=== PATIENT | female | born 1930 | race Caucasian/White ===

== ENCOUNTER 2017-07-24 08:10 | Observation (INO) | payer BC, OTHER ==
[2017-07-24 08:19] VITALS: BMI 17.9
--- NOTE | 2017-07-24 08:32 | DR.GENAD ---
HPI - PCP Primary Care Physician: ADAM DUNCAN - Complaint/Symptoms Chief Complaint Doctors Comments: Patient presents to the ED this morning with complaint of generalized weakness. She had nause,vomitng and dirrhea the previous few days and was seen by her primary provider yesterdan and was given Lomotil and zofran. Family members who live next door states that patient is very weak and needs assistance in getting up and down. She denies fever no influenza shot. Chief Complaint:: PT. C/O POSSIBLE DEHYDRATION AND WEAKNESS. PT. HAS HAD N/V/D WITH AN ONSET OF YESTERDAY. PT. SEEN PCP [facility] & WAS PRESCRIBED LOMOTIL AND ZOFRAN. FAMILY MEMBER STATES PT. WAS WORKING OUT IN THE YARD ON SUNDAY AND STARTED NOT FEELING WELL ON SUNDAY OF LAST WEEK. - Source History Provided: Patient, Family Member - Mode of Arrival Mode of Arrival: Wheelchair - Timing Onset of Chief Complaint: 07/20/17 PMH - PMH Past Medical History: Yes Past Medical History: Anxiety, GERD, Hypothyroidism Past Surgical History: Yes Surgical History: Hysterectomy, Ortho Surgery - Family History History of Family Medical Conditions: Yes Family Medical History: Diabetes Mellitus, Cancer, [place] - Social History Does patient currently use any type of tobacco product: No Have you used tobacco products in the last 12 months: No Type of Tobacco Use: None Does any household member use tobacco: No Alcohol Use: None Do you use any recreational Drugs:: No Lives With: Alone Lives Where: Home - infectious screening In the last 2 months have you had wt loss of >10#?: NO Have you had fever, night sweats or hemotysis?: No Have you traveled outside the country in the last 6 months?: No Isolation: Standard ROS - Review of Systems Eyes: No Symptoms Reported ENTM: No Symptoms Reported Respiratoy: No Symptoms Reported Cardiovascular: No Symptoms Reported Gastrointestinal/Abdominal: No Symptoms Reported Genitourinary: No Symptoms Reported Neurological: No Symptoms Reported Musculoskeletal: No Symptoms Reported Integumentary: No Symptoms Reported Hematologic/Lymphatic: No Symptoms Reported Endocrine: No Symptoms Reported Psychiatric: No Symptoms Reported All Other Systems: Reviewed and Negative PE - Vital Signs Vitals: Temperature 99.6 F Pulse Rate [Left Brachial] 60 Pulse Rate 65 Respiratory Rate 16 Blood Pressure [Left Arm] 148/65 Blood Pressure [Right Arm] 171/77 Blood Pressure 170/72 O2 Sat by Pulse Oximetry 96 - General General Appearance: Alert, In No Apparent Distress - Head Head Exam: Normal Inspection, Atraumatic - Eyes Eye exam: Normal Appearance, PERRL, EOMI - ENT ENT Exam: Normal Exam, Normal Oropharynx External Ear Exam: Normal External Inspection TM/Canal Exam: Bilateral Normal (PE Tube right ear) Nose Exam: Normal Nose Exam, Sinus Tenderness Mouth Exam: Normal Inspection Throat Exam: Normal Inspection, Other (dry mucous membrane) - Neck Neck Exam: Normal Inspection, Full ROM - Chest Chest Inspection: Normal Inspection - Respiratory Respiratory Exam: Normal Lung Sounds Bilat Respiratory Exam: Bilateral Clear to Auscultation - Cardiovascular Cardiovascular Exam: Regular Rate, Normal Rhythm - Abdominal Exam Abdominal Exam: Normal Inspection, Normal Bowel Sounds Abdominal Tenderness: negative: RUQ, RLQ, LUQ, LLQ, Epigastrium, Suprapubic, Diffuse, Mild, Moderate, Severe, Other - Extremities Extremities Exam: Normal Inspection, Full ROM - Back Back Exam: Normal Inspection, Full ROM - Neurologic Neurological Exam: Alert, Oriented X3, CN II-XII Intact - Psychiatric Psychiatric Exam: Normal Affect - Skin Skin Exam: Warm, Dry, Intact Course - Reevaluation 1st: Unchanged - Consultation Called: 10:00 (Dr Hendricks agreed to admit for further management) ROR - Labs Reviewed Result Diagrams: 07/24/17 08:21 07/24/17 08:21 Laboratory: WBC 10.0 X10^3/uL (3.6-10.0) 07/24/17 08:21 RBC 3.92 X10^6/uL (3.5-5.4) 07/24/17 08:21 Hgb 12.6 g/dL (12.0-16.0) 07/24/17 08:21 Hct 37.2 % (36.0-47.0) 07/24/17 08:21 MCV 94.8 fL (80.0-100.0) 07/24/17 08:21 MCH 32.2 pg (27.0-34.0) 07/24/17 08:21 MCHC 33.9 g/dL (33.0-35.0) 07/24/17 08:21 RDW 13.2 % (11.6-16.5) 07/24/17 08:21 Plt Count 131 X10^3/uL (150.0-450.0) L 07/24/17 08:21 MPV 9.2 fL (7.4-11.0) 07/24/17 08: Neut % 86.4 % (42.0-75.0) H 07/24/17 08:21 Lymph % 8.3 % (21.0-51.0) L 07/24/17 08:21 [place] % 5.1 % (0.0-13.0) 07/24/17 08:21 Eos % 0.0 % (0.9-2.9) L 07/24/17 08:21 Baso % 0.2 % (0.2-1.0) 07/24/17 08: Neut # 8.7 x10^3/uL (2.2-4.8) H 07/24/17 08:21 Lymph # 0.8 X10^3/uL (1.3-2.9) L 07/24/17 08:21 [place] # 0.5 x10^3/uL (0.3-0.8) 07/24/17 08:21 Eos # 0.0 x10^3/uL (0.0-0.2) 07/24/17 08:21 Baso # 0.0 X10^3/uL (0.0-0.1) 07/24/17 08:21 Absolute Nucleated RBC 0.0 /100WBC 07/24/17 08:21 Sodium 130 mmol/L (136-145) L 07/24/17 08:21 Corrected Sodium 130 mmol/L (136-145) L 07/24/17 08:21 Potassium 3.6 mmol/L (3.5-5.1) 07/24/17 08:21 Chloride 95 mmol/L (98-107) L 07/24/17 08:21 Carbon Dioxide 25.9 mmol/L (21-32) 07/24/17 08:21 BUN 8 mg/dL (7-18) 07/24/17 08:21 Creatinine 0.75 mg/dL (0.55-1.02) 07/24/17 08:21 Est GFR (MDRD) Af Amer > 60 (>60) 07/24/17 08:21 Est GFR (MDRD) Non-Af > 60 (>60) 07/24/17 08:21 Glucose 111 mg/dL (65-99) H 07/24/17 08:21 Calcium 8.7 mg/dL (8.5-10.1) 07/24/17 08:21 Corrected Calcium 9.3 mg/dL (8.5-10.1) 07/24/17 08:21 Magnesium 1.6 mg/dL (1.7-2.9) L 07/24/17 08:21 Total Bilirubin 0.80 mg/dL (0.2-1.0) 07/24/17 08:21 AST 50 Units/L (15-37) H 07/24/17 08:21 ALT 49 Units/L (12-78) 07/24/17 08:21 Alkaline Phosphatase 97 Units/L (46-116) 07/24/17 08:21 Creatine Kinase 39 Units/L (26-192) 07/24/17 08:21 CK-MB (CK-2) < 1.0 ng/mL (0-4.0) 07/24/17 08:21 CK/CKMB % Calc 2.6 % (<4) 07/24/17 08:21 Troponin I 0.26 ng/mL (0-1.5) 07/24/17 08:21 C-Reactive Protein 120.00 mg/L (0-3.0) H 07/24/17 08:21 Total Protein 7.1 g/dL (6.4-8.2) 07/24/17 08:21 Albumin 3.2 g/dL (3.4-5.0) L 07/24/17 08:21 Globulin 3.9 g/dL (2.5-4.5) 07/24/17 08:21 Albumin/Globulin Ratio 0.8 Ratio (1.1-2.1) L 07/24/17 08:21 TSH 3rd Generation 0.662 uIU/mL (0.358-3.74) 07/24/17 08:21 Specimen Type Catherized urine 07/24/17 09:11 Urine Color Yellow (YELLOW) 07/24/17 09:11 Urine Appearance Slightly hazy (CLEAR) 07/24/17 09:11 Urine pH 7.0 (5.0 - 8.0) 07/24/17 09:11 Ur Specific [employer] 1.010 (1.000-1.030) 07/24/17 09:11 Urine Protein 1+ (NEGATIVE) 07/24/17 09:11 Urine Glucose (UA) Negative (NEGATIVE) 07/24/17 09:11 Urine Ketones Negative (NEGATIVE) 07/24/17 09:11 Urine Occult Blood 1+ (NEGATIVE) 07/24/17 09:11 Urine Nitrite Negative (NEGATIVE) 07/24/17 09:11 Urine Bilirubin Negative (NEGATIVE) 07/24/17 09:11 Urine Urobilinogen Normal (NORMAL) 07/24/17 09:11 Ur Leukocyte Esterase Negative (NEGATIVE) 07/24/17 09:11 Urine RBC 2-4 /HPF (NEGATIVE) 07/24/17 09:11 Urine WBC 5-8 /HPF (NEGATIVE) 07/24/17 09:11 Ur Squamous Epith Cells Rare /HPF (NEGATIVE) 07/24/17 09:11 Urine Bacteria Trace /HPF (NEGATIVE) 07/24/17 09:11 Urine Mucus Few /HPF (NEGATIVE) 07/24/17 09:11 Ur Culture Indicated? No/not indicated 07/24/17 09:11 Influenza Type A (PCR) Negative (NEGATIVE) 07/24/17 08:34 Influenza Type B (PCR) Negative (NEGATIVE) 07/24/17 08:34 - XRAY XRAY Interpreted by: Radiologist (Chest: Mild cardiomegaly without congestive heart failure, lungs clear.CT Brain: The ventricules and sulci are prominent without midline shift. There is no intracranial hemorrhage or mass or edema. There is mild to moderate diffuse periventricular white matter low attenuation. There is no subdural collection of fluid. The calvarium is intact and the paranasal sinuses are clear. Impressin: No acute intracranial disease) - Diagnosis Discharge Problem: Hyponatremia, Mild dehydration, Generalized weakness - Discharge Plan Condition: Stable - Follow ups/Referrals Follow ups/Referrals: NFD,None [Primary Care Provider] - 3 days - Instructions
[2017-07-24 08:49] LABS: BASOPHILS % (AUTO) 0.2 % (0.2-1.0); HEMATOCRIT 37.2 % (36.0-47.0); HEMOGLOBIN 12.6 g/dL (12.0-16.0); LYMPHOCYTES # (AUTO) 0.8 X10^3/uL (1.3-2.9); LYMPHOCYTES % (AUTO) 8.3 % (21.0-51.0); MEAN CORPUSCULAR HEMOGLOBIN 32.2 pg (27.0-34.0); MEAN CORPUSCULAR HGB CONC 33.9 g/dL (33.0-35.0); MEAN CORPUSCULAR VOLUME 94.8 fL (80.0-100.0); MEAN PLATELET VOLUME 9.2 fL (7.4-11.0); MONOCYTES # (AUTO) 0.5 x10^3/uL (0.3-0.8); MONOCYTES % (AUTO) 5.1 % (0.0-13.0); NEUTROPHILS # (AUTO) 8.7 x10^3/uL (2.2-4.8); NEUTROPHILS % (AUTO) 86.4 % (42.0-75.0); PLATELET COUNT 131 X10^3/uL (150.0-450.0); RED BLOOD COUNT 3.92 X10^6/uL (3.5-5.4); RED CELL DISTRIBUTION WIDTH 13.2 % (11.6-16.5)
--- NOTE | 2017-07-24 08:51 | RAD ---
HISTORY: Weakness, dehydration Study: Chest AP Comparison: 07/17/2016 Findings: The heart is enlarged. No congestive heart failure is noted. The aorta is calcified. The aleta are nor mal. The lung negro are clear. The bony thorax is unremarkable. IMPRESSION: Lungs clear Mild cardiomegaly without congestive heart failure Reported By:
[2017-07-24] MEDS ORDERED: NS 1000 ML 1,000 ML IV SCH (09:00)
[2017-07-24 09:03] LABS: BLOOD UREA NITROGEN 8 mg/dL (7-18); CALCIUM 8.7 mg/dL (8.5-10.1); CARBON DIOXIDE 25.9 mmol/L (21-32); CHLORIDE 95 mmol/L (98-107); COR NA(FOR HYPERGLY) 130 mmol/L (136-145); CREATININE 0.75 mg/dL (0.55-1.02); SODIUM 130 mmol/L (136-145); TROPONIN I 0.26 ng/mL (0-1.5); eGFR BLACK RACES > 60 (>60); eGFR NON BLACK RACES > 60 (>60)
[2017-07-24 09:08] LABS: ALANINE AMINOTRANSFERASE 49 Units/L (12-78); ALBUMIN 3.2 g/dL (3.4-5.0); ALKALINE PHOSPHATASE 97 Units/L (46-116); ASPARTATE AMINO TRANSFERASE 50 Units/L (15-37); CKMB % 2.6 % (<4); COR CA(FOR HYPOALB) 9.3 mg/dL (8.5-10.1); CREATINE KINASE 39 Units/L (26-192); CREATINE KINASE MB < 1.0 ng/mL (0-4.0); MAGNESIUM 1.6 mg/dL (1.7-2.9); TOTAL PROTEIN 7.1 g/dL (6.4-8.2); TSH (3RD GENERATION) 0.662 uIU/mL (0.358-3.74)
[2017-07-24 09:20] LABS: BILIRUBIN,URINE NEGATIVE (NEGATIVE); BLOOD/HEMOGLOBIN,URINE 1+ (NEGATIVE); GLUCOSE, URINE NEGATIVE (NEGATIVE); KETONES,URINE NEGATIVE (NEGATIVE); LEUKOCYTE ESTERASE ,URINE NEGATIVE (NEGATIVE); NITRITES,URINE NEGATIVE (NEGATIVE); PROTEIN,URINE 1+ (NEGATIVE); UROBILINOGEN,URINE NORMAL (NORMAL)
[2017-07-24 09:34] LABS: APPEARANCE,URINE SLIGHTLY HAZY (CLEAR); COLOR,URINE YELLOW (YELLOW)
[2017-07-24 09:35] LABS: BACTERIA,URINE TRACE /HPF (NEGATIVE); MUCUS,URINE FEW /HPF (NEGATIVE); SQUAMOUS EPITHELIAL CELL,UR RARE /HPF (NEGATIVE)
--- NOTE | 2017-07-24 09:56 | CT ---
History: Weakness and dehydration Study: CT head without contrast. Sagittal and coronal reformations were provided. Comparison: None Findings: The ventricles and sulci are prominent without midline shift. There is no intracranial hemo rrhage or mass or edema. There is [id number] diffuse periventricular white matter low attenuati on. There is no subdural collection of fluid. The calvarium is intact and the paranasal sinuses are c lear. Impression: No acute intracranial disease. Reported By:
[2017-07-24] MEDS ORDERED: ZOFRAN INJ 4 MG VIAL IVP PRN (10:52)
[2017-07-24] MEDS ORDERED: NAPROXEN SODIUM PO PRN (10:52)
[2017-07-24] MEDS ORDERED: TYLENOL 500 MG TAB EXTRA STRENGTH PO PRN (10:52)
[2017-07-24] MEDS: NS 1000 ML 1,000 ML with POTASSIUM CHLORIDE INJ 20 MEQ VIAL 20 MEQ IV SCH ×6 (13:08→20:05)
[2017-07-24] MEDS: LOVAZA PO SCH (13:42)
[2017-07-24] MEDS: ZESTRIL TAB 5 MG PO SCH (13:42)
[2017-07-24] MEDS: PREDNISONE TAB 5 MG PO SCH (13:42)
[2017-07-24] MEDS: VITAMIN C PO SCH (13:42)
[2017-07-24] MEDS: MAGNESIUM SULFATE 1 GM/100 mL PREMIX 1 GM/100 ML BAG IV PRN ×2 (13:42→14:56)
[2017-07-24] MEDS: LIPITOR TAB 10 MG PO SCH (13:42)
[2017-07-24] MEDS: SYNTHROID 100 mcg TAB PO SCH (13:42)
[2017-07-24] MEDS ORDERED: ASPIRIN EC 81 MG PO SCH (14:00)
[2017-07-24 14:50] LABS: CKMB % 2.1 % (<4); CREATINE KINASE 48 Units/L (26-192); CREATINE KINASE MB < 1.0 ng/mL (0-4.0); TROPONIN I 0.25 ng/mL (0-1.5)
[2017-07-24 15:51] LABS: BILIRUBIN,URINE NEGATIVE (NEGATIVE); BLOOD/HEMOGLOBIN,URINE 4+ (NEGATIVE); GLUCOSE, URINE NEGATIVE (NEGATIVE); KETONES,URINE NEGATIVE (NEGATIVE); LEUKOCYTE ESTERASE ,URINE NEGATIVE (NEGATIVE); NITRITES,URINE NEGATIVE (NEGATIVE); PROTEIN,URINE NEGATIVE (NEGATIVE); UROBILINOGEN,URINE NORMAL (NORMAL)
[2017-07-24 15:59] LABS: APPEARANCE,URINE CLEAR (CLEAR); BACTERIA,URINE TRACE /HPF (NEGATIVE); COLOR,URINE PALE YELLOW (YELLOW); SQUAMOUS EPITHELIAL CELL,UR RARE /HPF (NEGATIVE)
[2017-07-24] MEDS: ASPIRIN EC 81 MG PO SCH (19:59)
[2017-07-24] MEDS: RESTORIL CAP 30 MG PO PRN (20:05)
[2017-07-24 20:55] LABS: CKMB % 1.9 % (<4); CREATINE KINASE 52 Units/L (26-192); CREATINE KINASE MB < 1.0 ng/mL (0-4.0); TROPONIN I 0.15 ng/mL (0-1.5)
[2017-07-25 05:24] LABS: BASOPHILS % (AUTO) 0.3 % (0.2-1.0); EOSINOPHILS % (AUTO) 0.1 % (0.9-2.9); HEMATOCRIT 38.2 % (36.0-47.0); LYMPHOCYTES # (AUTO) 0.6 X10^3/uL (1.3-2.9); LYMPHOCYTES % (AUTO) 7.6 % (21.0-51.0); MEAN CORPUSCULAR HEMOGLOBIN 32.1 pg (27.0-34.0); MEAN CORPUSCULAR HGB CONC 34.2 g/dL (33.0-35.0); MEAN PLATELET VOLUME 9.8 fL (7.4-11.0); MONOCYTES # (AUTO) 0.3 x10^3/uL (0.3-0.8); MONOCYTES % (AUTO) 3.4 % (0.0-13.0); NEUTROPHILS # (AUTO) 6.8 x10^3/uL (2.2-4.8); NEUTROPHILS % (AUTO) 88.6 % (42.0-75.0); PLATELET COUNT 130 X10^3/uL (150.0-450.0); RED BLOOD COUNT 4.06 X10^6/uL (3.5-5.4); RED CELL DISTRIBUTION WIDTH 13.2 % (11.6-16.5); WHITE BLOOD COUNT 7.7 X10^3/uL (3.6-10.0)
[2017-07-25 05:40] LABS: ALANINE AMINOTRANSFERASE 48 Units/L (12-78); ALBUMIN 2.7 g/dL (3.4-5.0); ALKALINE PHOSPHATASE 122 Units/L (46-116); ASPARTATE AMINO TRANSFERASE 53 Units/L (15-37); BLOOD UREA NITROGEN 10 mg/dL (7-18); CALCIUM 8.7 mg/dL (8.5-10.1); CHLORIDE 104 mmol/L (98-107); COR CA(FOR HYPOALB) 9.7 mg/dL (8.5-10.1); SODIUM 138 mmol/L (136-145); eGFR BLACK RACES > 60 (>60); eGFR NON BLACK RACES > 60 (>60)
[2017-07-25] MEDS: NS 1000 ML 1,000 ML with POTASSIUM CHLORIDE INJ 20 MEQ VIAL 20 MEQ IV SCH ×4 (05:48→11:41)
--- NOTE | 2017-07-25 06:24 | RAD ---
HISTORY: Cough, weakness Study: Chest AP portable Comparison: July 24, 2017 Findings: The heart is enlarged. No congestive heart failure is noted. The aleta are normal. The aorta is calcif ied. The lungs are free of acute alveolar infiltrates. No definite pleural effusions are identified. The bony thorax is unremarkable. IMPRESSION: No definite infiltrates Moderate cardiomegaly without congestive heart failure Reported By:
[2017-07-25] MEDS ORDERED: ROBITUSSIN DM ONE (06:45)
[2017-07-25] MEDS: ROBITUSSIN DM PO PRN ×2 (07:02→15:47)
[2017-07-25] MEDS: VITAMIN C PO SCH (08:57)
[2017-07-25] MEDS: SYNTHROID 100 mcg TAB PO SCH (08:57)
[2017-07-25] MEDS: LIPITOR TAB 10 MG PO SCH (08:57)
[2017-07-25] MEDS: LOVAZA PO SCH (08:57)
[2017-07-25] MEDS: PREDNISONE TAB 5 MG PO SCH (08:57)
[2017-07-25] MEDS: ZESTRIL TAB 5 MG PO SCH (08:58)
[2017-07-25] MEDS ORDERED: RESTORIL CAP 30 MG PO SCH (09:00)
[2017-07-25] MEDS ORDERED: PREDNISONE PO SCH (09:00)
[2017-07-25] MEDS ORDERED: FATTY ACIDS PO SCH (09:00)
[2017-07-25] MEDS ORDERED: PATIENT'S HOME MEDICATION (Ascorbic Acid [Vitamin C] 1,000 MG) PO SCH (09:00)
[2017-07-25] MEDS ORDERED: PATIENT'S HOME MEDICATION (Multivit-Min/Fa/Lycopen/Lutein [Centrum Silver Tablet] 1 TAB) PO SCH (09:00)
[2017-07-25] MEDS ORDERED: PATIENT'S HOME MEDICATION (Lisinopril [Lisinopril] 1 TAB) PO SCH (09:00)
[2017-07-25] MEDS ORDERED: GARLIC PO SCH (09:00)
[2017-07-25] MEDS ORDERED: OMEGA PO SCH (09:00)
[2017-07-25] MEDS ORDERED: ASPIRIN PO SCH (09:00)
[2017-07-25] MEDS ORDERED: [UNRECOGNIZED DRUG - OTHER] PO SCH (09:00)
[2017-07-25] MEDS: NS + KCL 20 MEQ/L 1,000 ML IV SCH (14:15)
--- NOTE | 2017-07-25 14:33 | RAD ---
HISTORY: Nausea and vomiting Study: KUB Comparison: None Findings: The abdominal gas pattern is nonspecific and nonobstructive. No abnormal masses or abnormal calcifica tions are identified. The regional skeleton is osteopenic but intact. IMPRESSION: Nonspecific bowel gas pattern Reported By:
[2017-07-25] MEDS: ROCEPHIN 1 GM IV PREMIX 1 GM/50 ML IV.SOLN. IV SCH (14:36)
[2017-07-25] MEDS: PROTONIX INJ 40 MG VIAL IVP SCH ×2 (14:36→20:33)
[2017-07-25] MEDS ORDERED: ROCEPHIN 1 GM IV PREMIX IV SCH (15:00)
[2017-07-25] MEDS ORDERED: TYLENOL 500 MG TAB EXTRA STRENGTH PO PRN (15:13)
[2017-07-25] MEDS ORDERED: XOPENEX 1.25 MG/3 ML NEBULE NEB PRN (17:00)
[2017-07-25] MEDS: TUSSIONEX PENNKINETIC SUSP PO PRN (20:33)
[2017-07-25] MEDS: ASPIRIN EC 81 MG PO SCH (20:33)
[2017-07-25] MEDS: RESTORIL CAP 30 MG PO PRN (20:33)
[2017-07-26] MEDS: NS + KCL 20 MEQ/L 1,000 ML IV SCH (05:29)
[2017-07-26 06:09] LABS: BASOPHILS % (AUTO) 0.4 % (0.2-1.0); EOSINOPHILS % (AUTO) 0.4 % (0.9-2.9); HEMATOCRIT 34.6 % (36.0-47.0); HEMOGLOBIN 11.8 g/dL (12.0-16.0); LYMPHOCYTES # (AUTO) 0.9 X10^3/uL (1.3-2.9); LYMPHOCYTES % (AUTO) 12.7 % (21.0-51.0); MEAN CORPUSCULAR HGB CONC 34.2 g/dL (33.0-35.0); MEAN CORPUSCULAR VOLUME 93.5 fL (80.0-100.0); MEAN PLATELET VOLUME 9.5 fL (7.4-11.0); MONOCYTES # (AUTO) 0.4 x10^3/uL (0.3-0.8); MONOCYTES % (AUTO) 6.4 % (0.0-13.0); NEUTROPHILS # (AUTO) 5.4 x10^3/uL (2.2-4.8); NEUTROPHILS % (AUTO) 80.1 % (42.0-75.0); PLATELET COUNT 125 X10^3/uL (150.0-450.0); RED BLOOD COUNT 3.69 X10^6/uL (3.5-5.4); RED CELL DISTRIBUTION WIDTH 12.9 % (11.6-16.5); WHITE BLOOD COUNT 6.7 X10^3/uL (3.6-10.0)
[2017-07-26 06:20] LABS: ALANINE AMINOTRANSFERASE 70 Units/L (12-78); ALBUMIN 2.4 g/dL (3.4-5.0); ALKALINE PHOSPHATASE 166 Units/L (46-116); ASPARTATE AMINO TRANSFERASE 88 Units/L (15-37); BLOOD UREA NITROGEN 10 mg/dL (7-18); CALCIUM 8.5 mg/dL (8.5-10.1); CARBON DIOXIDE 27.5 mmol/L (21-32); CHLORIDE 104 mmol/L (98-107); COR CA(FOR HYPOALB) 9.8 mg/dL (8.5-10.1); CREATININE 0.65 mg/dL (0.55-1.02); SODIUM 137 mmol/L (136-145); TOTAL PROTEIN 6.5 g/dL (6.4-8.2); eGFR BLACK RACES > 60 (>60); eGFR NON BLACK RACES > 60 (>60)
[2017-07-26] MEDS: ROCEPHIN 1 GM IV PREMIX 1 GM/50 ML IV.SOLN. IV SCH (10:51)
[2017-07-26] MEDS: ROBITUSSIN DM PO PRN (10:51)
[2017-07-26] MEDS: PROTONIX INJ 40 MG VIAL IVP SCH ×2 (10:51→20:22)
[2017-07-26] MEDS: ZESTRIL TAB 5 MG PO SCH (10:52)
[2017-07-26] MEDS: VITAMIN C PO SCH (10:52)
[2017-07-26] MEDS: PREDNISONE TAB 5 MG PO SCH (10:52)
[2017-07-26] MEDS: LOVAZA PO SCH (10:53)
[2017-07-26] MEDS: SYNTHROID 100 mcg TAB PO SCH (10:53)
[2017-07-26] MEDS: LIPITOR TAB 10 MG PO SCH (10:54)
[2017-07-26] MEDS ORDERED: NS + KCL 20 MEQ/L 1,000 ML IV SCH (17:00)
--- NOTE | 2017-07-26 17:15 | RAD ---
Chest, AP Indication: Cough, congestion, rhonchi Comparison: 07/25/2017 Findings: Mild cardiac silhouette enlargement is unchanged. The lungs are hyperinflated. There is mil d bibasilar airspace disease with small left pleural effusion. No overt edema. The upper lungs are gr ossly clear. Impression: Mild bibasilar airspace disease suggesting atelectasis or developing infiltrates. Small l eft pleural effusion. Stable cardiomegaly without evidence for CHF. Reported By:
[2017-07-26] MEDS: XOPENEX 1.25 MG/3 ML NEBULE NEB SCH ×3 (17:40→21:06)
--- NOTE | 2017-07-26 18:02 | DR.H&P ---
H&P - History & Physical for Day of: H&P Date: 07/24/17 - Chief Complaint Chief Complaint: N/V, WEAKNESS, COUGH - Allergies Allergies/Adverse Reactions: Allergies Allergy/AdvReac Type Severity Reaction Status Date / Time cephalexin Allergy Verified 07/24/17 08:20 clarithromycin [From Biaxin] Allergy Verified 07/24/17 08:20 - History of Present Illness History of Present Illness: 86 [facility] ER ADMISSION AFTER PRESENTING WITH CO FLU LIKE ILLNESS SINCE SUNDAY WITH N/V AND DEHYDRATION. PT HAD NEGATIVE FLU SWAB IN ED. PT HAD INCREASED CHEST CONGESTION AND HYPONATREMIA. PT WAS ADMITTED FOR EVALUATION AND TREATMENT OF FLU LIKE ILLNESS, DEHYDRATION. - Past Medical History Past Medical History: Anxiety, GERD, Hypothyroidism - Past Surgical History Surgical History: Hysterectomy, Ortho Surgery - Family History Family Medical History: Diabetes Mellitus, Cancer, [place] - Social History Does patient currently use any type of tobacco product: No Have you used tobacco products in the last 12 months: No Type of Tobacco Use: None Does any household member use tobacco: No Alcohol Use: None Drug Use: Prescription Drugs - Medications Home Medications: Ascorbic Acid [Vitamin C] 1,000 mg PO DAILY 07/24/17 [History Confirmed 07/24/17 ] Ca/D3/Mag/Zinc/Kailey/Gerald/Mgbor [Caltrate 600+D3+Min Chew Tab] 1 tab PO DAILY [History Confirmed 07/24/17] Multivit-Min/FA/Lycopen/Lutein [Centrum Silver Tablet] 1 tab PO DAILY 07/24/17 [ History Confirmed 07/24/17] Naproxen Sodium [Aleve] 1 tab PO PRN PRN 07/24/17 [History Confirmed 07/24/17] Temazepam 1 day PO DAILY 07/24/17 [History Confirmed 07/24/17] Vitamin A 1 tab PO DAILY 07/24/17 [History Confirmed 07/24/17] - Review of Systems Constitutional: Fever, Chills, Weakness Eyes: No Symptoms Reported ENT: No Symptoms Reported Respiratory: Cough Cardiovascular: No Symptoms Reported Gastrointestinal: Nausea, Vomiting Genitourinary: No Symptoms Reported Musculoskeletal: Back Pain Skin: No Symptoms Reported Neurological: Weakness - Physical Exam Vital Signs: Temperature 98.7 F Pulse Rate [Right Brachial] 63 Pulse Rate [Left Brachial] 74 Pulse Rate 61 Respiratory Rate 16 Blood Pressure [Left Arm] 130/55 Blood Pressure [Right Arm] 150/66 Blood Pressure 170/72 O2 Sat by Pulse Oximetry 94 Oriented: Normal Eyes: Normal Ear: Normal Nose: Normal Throat: Normal Respiratory: RLL Diminished, LLL Diminished Cardiovascular: Normal : Normal Palpation: Normal Tenderness: Epigastric Skin: Decreased Turgur Musculoskeletal: Back:Lumbar Mood Description: Calm Speech Pattern: Clear, Appropriate - Assessment/Plan (1) Gastroenteritis Status: Acute Plan: ADMIT, IV HYDRATION, PAIN AND NAUSEA CONTROL. ADMISSION LABS. RESUME HOME MEDS (2) Hyponatremia Status: Acute (3) Bronchitis Status: Acute (4) Fever Status: Acute
[2017-07-26] MEDS: TUSSIONEX PENNKINETIC SUSP PO PRN (20:22)
[2017-07-26] MEDS: ASPIRIN EC 81 MG PO SCH (20:22)
[2017-07-26] MEDS: PULMICORT NEB TX 0.5 MG NEB SCH (21:06)
[2017-07-26] MEDS: RESTORIL CAP 30 MG PO PRN (21:42)
[2017-07-26] MEDS ORDERED: MILK OF MAGNESIA PO PRN (21:53)
[2017-07-26] MEDS ORDERED: COLACE CAP 100 MG PO PRN (21:53)
[2017-07-27 06:07] LABS: BASOPHILS % (AUTO) 0.3 % (0.2-1.0); EOSINOPHILS % (AUTO) 0.6 % (0.9-2.9); HEMATOCRIT 33.6 % (36.0-47.0); HEMOGLOBIN 11.5 g/dL (12.0-16.0); LYMPHOCYTES % (AUTO) 16.7 % (21.0-51.0); MEAN CORPUSCULAR HEMOGLOBIN 31.9 pg (27.0-34.0); MEAN CORPUSCULAR HGB CONC 34.4 g/dL (33.0-35.0); MEAN CORPUSCULAR VOLUME 92.9 fL (80.0-100.0); MEAN PLATELET VOLUME 9.2 fL (7.4-11.0); MONOCYTES # (AUTO) 0.5 x10^3/uL (0.3-0.8); MONOCYTES % (AUTO) 9.1 % (0.0-13.0); NEUTROPHILS # (AUTO) 4.3 x10^3/uL (2.2-4.8); NEUTROPHILS % (AUTO) 73.3 % (42.0-75.0); PLATELET COUNT 141 X10^3/uL (150.0-450.0); RED BLOOD COUNT 3.62 X10^6/uL (3.5-5.4); RED CELL DISTRIBUTION WIDTH 12.9 % (11.6-16.5); WHITE BLOOD COUNT 5.8 X10^3/uL (3.6-10.0)
[2017-07-27 06:33] LABS: ALANINE AMINOTRANSFERASE 88 Units/L (12-78); ALBUMIN 2.3 g/dL (3.4-5.0); ALKALINE PHOSPHATASE 191 Units/L (46-116); ASPARTATE AMINO TRANSFERASE 109 Units/L (15-37); BLOOD UREA NITROGEN 10 mg/dL (7-18); CALCIUM 8.5 mg/dL (8.5-10.1); CARBON DIOXIDE 28.4 mmol/L (21-32); CHLORIDE 103 mmol/L (98-107); COR CA(FOR HYPOALB) 9.9 mg/dL (8.5-10.1); CREATININE 0.73 mg/dL (0.55-1.02); SODIUM 139 mmol/L (136-145); TOTAL PROTEIN 6.4 g/dL (6.4-8.2); eGFR BLACK RACES > 60 (>60); eGFR NON BLACK RACES > 60 (>60)
[2017-07-27] MEDS: XOPENEX 1.25 MG/3 ML NEBULE NEB SCH ×2 (08:58→12:08)
[2017-07-27] MEDS: PULMICORT NEB TX 0.5 MG NEB SCH (08:59)
[2017-07-27] MEDS: ROBITUSSIN DM PO PRN (09:25)
[2017-07-27] MEDS: ROCEPHIN 1 GM IV PREMIX 1 GM/50 ML IV.SOLN. IV SCH (09:25)
[2017-07-27] MEDS: LOVAZA PO SCH (09:25)
[2017-07-27] MEDS: LIPITOR TAB 10 MG PO SCH (09:26)
[2017-07-27] MEDS: ZESTRIL TAB 5 MG PO SCH (09:26)
[2017-07-27] MEDS: PREDNISONE TAB 5 MG PO SCH (09:26)
[2017-07-27] MEDS: SYNTHROID 100 mcg TAB PO SCH (09:26)
[2017-07-27] MEDS: VITAMIN C PO SCH (09:27)
[2017-07-27] MEDS: PROTONIX INJ 40 MG VIAL IVP SCH (09:27)
[2017-07-27 12:46] VITALS: BP 137/61
== END 2017-07-27 13:25 | disposition home health service (06) ==
LOC: ER 08:27 → MED/SURG 11:20
PROVIDERS: ADMIT Internal Medicine; ATTEND Internal Medicine
DX: K52.89 Other specified noninfective gastroenteritis and colitis (principal); J20.8 Acute bronchitis due to other specified organisms; E87.1 Hypo-osmolality and hyponatremia; R11.2 Nausea with vomiting, unspecified; R19.7 Diarrhea, unspecified; R94.31 Abnormal electrocardiogram [ECG] [EKG]; R53.1 Weakness; E86.0 Dehydration; E03.8 Other specified hypothyroidism; F41.8 Other specified anxiety disorders; R79.82 Elevated C-reactive protein (CRP); R26.89 Other abnormalities of gait and mobility; K21.9 Gastro-esophageal reflux disease without esophagitis
CPT/HCPCS: 36415; 70450; 71045; 74018; 80053; 81001; 82550; 82553; 83735; 84443; 84484; 85025; 86140; 87070; 87205; 87502; 93005; 93010; 94640; 94760; 96365; 96367; 97535; 99284; A4222; C9113; G8978; G8979; G8980; G8987; G8988; G0378; J0696; J3480; J7506; J7626

== ENCOUNTER → 2017-09-12 | Outpatient (CLI) | payer OTHER ==
[2017-09-12 12:26] LABS: FREE T4 (FREE THYROXINE) 1.27 ng/dL (0.76-1.46); TSH (3RD GENERATION) 0.986 uIU/mL (0.358-3.74)
== END | disposition home or self-care (01) | DRG 644 ==
LOC: LAB 10:31
PROVIDERS: ATTEND Internal Medicine Endocrinology, Diabetes & Metabolism
DX: E03.8 Other specified hypothyroidism (principal); E27.49 Other adrenocortical insufficiency; E78.4 Other hyperlipidemia; M81.0 Age-related osteoporosis without current pathological fracture
CPT/HCPCS: 36415; 84439; 84443

== ENCOUNTER 2018-04-03 09:34 | Inpatient (IN) ==
[2018-04-03] MEDS ORDERED: ZOFRAN INJ 4 MG VIAL IVP ONE (10:02)
[2018-04-03] MEDS ORDERED: NS 1000 ML 1,000 ML IV ONE (10:02)
[2018-04-03] MEDS ORDERED: NS 1000 ML 1,000 ML ONE ×2 (10:05→15:28)
--- NOTE | 2018-04-03 10:14 | ED.ABDFE ---
HPI Time Seen Time Seen by Provider: 04/03/18 10:02 HPI Comment HPI Comment: PATIENT ON MEDICATION FOR LEG INFECTION. FEEL WEAK AND RUNNING FEVER. NO DIARRHEA. WORSE THIS AM. Complaint Doctors Chief Complaint Comments: ABDOMINAL PAIN, NAUSEA AND VOMITING TIMES ONE DAY. Reviewed Nurses Notes Review: Yes Source History Provided: Patient and Family Member Mode of arrival Mode of Arrival: Wheelchair Timing Came on: Suddenly Duration Since Onset: Constant Duration: Days Location Location: Diffuse Severity Severity: Moderate Quality Quality: Sharp Context History of: None Modifying factors Worsening Factors: Food Improving Factors: Nothing Associated signs and symptoms Associated Signs and Symptoms: Nausea, Vomiting and Other PMH PMH Past Medical History: Anxiety, GERD and Hypothyroidism Surgical History: Hysterectomy and Ortho Surgery Family History Family Medical History: Diabetes Mellitus, Cancer and [place] Social History Do you use any recreational Drugs:: No ROS Review of Systems Constitutional: Weakness and Fatigue Eyes: No Symptoms Reported ENTM: No Symptoms Reported Respiratoy: No Symptoms Reported Cardiovascular: No Symptoms Reported Genitourinary: No Symptoms Reported Neurological: Weakness Musculoskeletal: Right, Left and Leg Integumentary: Wound (CELLULITIS LEGS AND WOUND RIGHT FOOT.) Hematologic/Lymphatic: No Symptoms Reported Endocrine: No Symptoms Reported Psychiatric: No Symptoms Reported All Other Systems: Reviewed and Negative PE Vital Signs Vitals: Temperature 98.8 F Pulse Rate [Left] 84 Pulse Rate 80 Respiratory Rate 18 Blood Pressure [Left Arm] 183/79 Blood Pressure [Right Arm] 137/61 Blood Pressure 138/64 O2 Sat by Pulse Oximetry 97 General Limitations: No Limitations and Other (GENERALIZE WEAKNESS.) General Appearance: Alert and In No Apparent Distress Head Head Exam: Normal Inspection and Atraumatic Eyes Eye exam: Normal Appearance and PERRL; negative Scleral Icterus and Conjunctival Injection ENT ENT Exam: Normal Exam, Normal Oropharynx, Normal External Ear Exam and TM's Normal Bilaterally Neck Neck Exam: Trachea Midline; negative Tenderness, Meningismus and Lymphadenopathy Chest Chest Inspection: Symmetric Chest Wall Rise Respiratory Respiratory Exam: Normal Lung Sounds Bilat Respiratory Exam: Bilateral: Rhonchi and Lower: Rhonchi Cardiovascular Cardiovascular Exam: Regular Rate and Normal Rhythm Abdominal Exam Abdominal Exam: Normal Bowel Sounds, Soft and Tenderness Abdominal Tenderness: Diffuse and Moderate Rectal Rectal Exam: Deferred Back Back Exam: Normal Inspection Extremeties Extremities Exam: Tenderness (BILATERAL CELLULITIS WITH SMALL WOUND RIGHT LEG.), Normal Capillary Refill and Edema External Exam: Female: Deferred : Speculum Exam (Female): Deferred : Bimanual Exam (female): Deferred Neurologic Neurological Exam: Alert; negative Motor Sensory Deficit Psychiatric Psychiatric Exam: Other (GENERALIZE WEAKNESS.) Skin Skin Exam: Erythema and Other (CELLULITIS LEGS.) MDM Additional Information Obtained From Additional information provided by: Family Differential Diagnosis Differential Diagnosis- Considerations may include:: Bowel Obstruction, Ch olcystitis, Cholelethiasis, Constipation, Diverticular disease, Gastritus/PUD, Gastroenteritis, Pancreatitis, Urinary tract infection and Urolithiasis COURSE Treatment Treatment: SEE ORDERS. Consultation Consultation Comments: PATIENT WILL BE ADMITTED BY DR. FREITAS. Education/Counseling Education/Counseling: Patient and Family Educated On: Diagnosis ROR Labs Reviewed Laboratory Results Reviewed?: Yes Result Diagrams: 04/03/18 10:15 04/03/18 10:15 Laboratory: WBC 8.0 X10^3/uL (3.6-10.0) 04/03/18 10:15 RBC 3.66 X10^6/uL (3.5-5.4) 04/03/18 10:15 Hgb 12.4 g/dL (12.0-16.0) 04/03/18 10:15 Hct 36.3 % (36.0-47.0) 04/03/18 10:15 MCV 99.2 fL (80.0-100.0) 04/03/18 10:15 MCH 33.9 pg (27.0-34.0) 04/03/18 10:15 MCHC 34.1 g/dL (33.0-35.0) 04/03/18 10:15 RDW 13.9 % (11.6-16.5) 04/03/18 10:15 Plt Count 181 X10^3/uL (150.0-450.0) 04/03/18 10:15 Plt Count Comment Adequate (ADEQUATE) 04/03/18 10:15 MPV 8.5 fL (7.4-11.0) 04/03/18 10:15 Neut % (Auto) 90.5 % (42.0-75.0) H 04/03/18 10:15 Lymph % (Auto) 6.3 % (21.0-51.0) L 04/03/18 10:15 [place] % (Auto) 2.5 % (0.0-13.0) 04/03/18 10:15 Eos % (Auto) 0.5 % (0.9-2.9) L 04/03/18 10:15 Baso % (Auto) 0.2 % (0.2-1.0) 04/03/18 10:15 Neut # (Auto) 7.3 x10^3/uL (2.2-4.8) H 04/03/18 10:15 Lymph # (Auto) 0.5 X10^3/uL (1.3-2.9) L 04/03/18 10:15 [place] # (Auto) 0.2 x10^3/uL (0.3-0.8) L 04/03/18 10:15 Eos # (Auto) 0.0 x10^3/uL (0.0-0.2) 04/03/18 10:15 Baso # (Auto) 0.0 X10^3/uL (0.0-0.1) 04/03/18 10:15 Absolute Nucleated RBC 0.0 /100WBC 04/03/18 10:15 Total Counted 100 04/03/18 10:15 Neutrophils % (Manual) 87 % (39-76) H 04/03/18 10:15 Band Neutrophils % 3 % (0-10) 04/03/18 10:15 Lymphocytes % (Manual) 8 % (13-43) L 04/03/18 10:15 Monocytes % (Manual) 2 % (4-9) L 04/03/18 10:15 Plt Morphology Comment Normal (NORMAL) 04/03/18 10:15 RBC Morphology Normal (NORMAL) 04/03/18 10:15 Sodium 143 mmol/L (136-145) 04/03/18 10:15 Corrected Sodium 143 mmol/L (136-145) 04/03/18 10:15 Potassium 3.3 mmol/L (3.5-5.1) L 04/03/18 10:15 Chloride 104 mmol/L (98-107) 04/03/18 10:15 Carbon Dioxide 29.8 mmol/L (21-32) 04/03/18 10:15 BUN 16 mg/dL (7-18) 04/03/18 10:15 Creatinine 0.94 mg/dL (0.55-1.02) 04/03/18 10:15 Est GFR (MDRD) Af Amer > 60 (>60) 04/03/18 10:15 Est GFR (MDRD) Non-Af > 60 (>60) 04/03/18 10:15 Glucose 114 mg/dL (65-99) H 04/03/18 10:15 Lactic Acid 1.1 mmol/L (0.4-2.0) 04/03/18 14:57 Calcium 8.5 mg/dL (8.5-10.1) 04/03/18 10:15 Corrected Calcium TNP 04/03/18 10:15 Total Bilirubin 0.40 mg/dL (0.2-1.0) 04/03/18 10:15 AST 29 Units/L (15-37) 04/03/18 10:15 ALT 35 Units/L (12-78) 04/03/18 10:15 Alkaline Phosphatase 69 Units/L (46-116) 04/03/18 10:15 Total Protein 7.0 g/dL (6.4-8.2) 04/03/18 10:15 Albumin 3.4 g/dL (3.4-5.0) 04/03/18 10:15 Globulin 3.6 g/dL (2.5-4.5) 04/03/18 10:15 Albumin/Globulin Ratio 0.9 Ratio (1.1-2.1) L 04/03/18 10:15 Amylase 74 Units/L (25-115) 04/03/18 10:15 Lipase 170 Units/L (73-393) 04/03/18 10:15 Specimen Type Catherized urine 04/03/18 14:10 Urine Color Yellow (YELLOW) 04/03/18 14:10 Urine Appearance Clear (CLEAR) 04/03/18 14:10 Urine pH 8.0 (5.0 - 8.0) 04/03/18 14:10 Ur Specific [place] 1.015 (1.000-1.030) 04/03/18 14:10 Urine Protein Negative (NEGATIVE) 04/03/18 14:10 Urine Glucose (UA) Negative (NEGATIVE) 04/03/18 14:10 Urine Ketones Negative (NEGATIVE) 04/03/18 14:10 Urine Occult Blood Negative (NEGATIVE) 04/03/18 14:10 Urine Nitrite Negative (NEGATIVE) 04/03/18 14:10 Urine Bilirubin Negative (NEGATIVE) 04/03/18 14:10 Urine Urobilinogen Normal (NORMAL) 04/03/18 14:10 Ur Leukocyte Esterase Negative (NEGATIVE) 04/03/18 14:10 XRAY XRAY Interpreted by: Radiologist XRAY Findings: REPORT DISCUSS WITH PATIENT AND FAMILY. EKG Rate: 79 [place]: Normal Rhythm: NSR Block: None Hypertrophy: LVH ST: Normal Diagnosis Discharge Problem: Decreased nausea and vomiting Abdominal pain Qualifiers: Abdominal location: generalized Qualified Code(s): R10.84 - Generalized abdom inal pain Cellulitis Qualifiers: Site of cellulitis: extremity Site of cellulitis of extremity: upper extremity Laterality: right Qualified Code(s): L03.113 - Cellulitis of right upper limb
[2018-04-03 10:33] LABS: BASOPHILS % (AUTO) 0.2 % (0.2-1.0); EOSINOPHILS % (AUTO) 0.5 % (0.9-2.9); HEMATOCRIT 36.3 % (36.0-47.0); HEMOGLOBIN 12.4 g/dL (12.0-16.0); LYMPHOCYTES # (AUTO) 0.5 X10^3/uL (1.3-2.9); LYMPHOCYTES % (AUTO) 6.3 % (21.0-51.0); MEAN CORPUSCULAR HEMOGLOBIN 33.9 pg (27.0-34.0); MEAN CORPUSCULAR HGB CONC 34.1 g/dL (33.0-35.0); MEAN CORPUSCULAR VOLUME 99.2 fL (80.0-100.0); MEAN PLATELET VOLUME 8.5 fL (7.4-11.0); MONOCYTES # (AUTO) 0.2 x10^3/uL (0.3-0.8); MONOCYTES % (AUTO) 2.5 % (0.0-13.0); NEUTROPHILS # (AUTO) 7.3 x10^3/uL (2.2-4.8); NEUTROPHILS % (AUTO) 90.5 % (42.0-75.0); PLATELET COUNT 181 X10^3/uL (150.0-450.0); RED BLOOD COUNT 3.66 X10^6/uL (3.5-5.4); RED CELL DISTRIBUTION WIDTH 13.9 % (11.6-16.5)
[2018-04-03] MEDS ORDERED: ZOFRAN INJ 4 MG VIAL ONE (10:36)
[2018-04-03 10:39] LABS: ALANINE AMINOTRANSFERASE 35 Units/L (12-78); ALBUMIN 3.4 g/dL (3.4-5.0); ALKALINE PHOSPHATASE 69 Units/L (46-116); AMYLASE 74 Units/L (25-115); ASPARTATE AMINO TRANSFERASE 29 Units/L (15-37); BLOOD UREA NITROGEN 16 mg/dL (7-18); CALCIUM 8.5 mg/dL (8.5-10.1); CARBON DIOXIDE 29.8 mmol/L (21-32); CHLORIDE 104 mmol/L (98-107); COR NA(FOR HYPERGLY) 143 mmol/L (136-145); CREATININE 0.94 mg/dL (0.55-1.02); LIPASE 170 Units/L (73-393); SODIUM 143 mmol/L (136-145); eGFR NON BLACK RACES > 60 (>60)
[2018-04-03 11:21] LABS: BAND NEUTROPHILS % 3 % (0-10)
[2018-04-03 11:22] LABS: PLATELET MORPHOLOGY COMMENT NORMAL (NORMAL)
[2018-04-03 14:27] LABS: BILIRUBIN,URINE NEGATIVE (NEGATIVE); BLOOD/HEMOGLOBIN,URINE NEGATIVE (NEGATIVE); GLUCOSE, URINE NEGATIVE (NEGATIVE); KETONES,URINE NEGATIVE (NEGATIVE); LEUKOCYTE ESTERASE ,URINE NEGATIVE (NEGATIVE); NITRITES,URINE NEGATIVE (NEGATIVE); PROTEIN,URINE NEGATIVE (NEGATIVE); UROBILINOGEN,URINE NORMAL (NORMAL)
[2018-04-03 14:35] LABS: APPEARANCE,URINE CLEAR (CLEAR); COLOR,URINE YELLOW (YELLOW)
[2018-04-03] MEDS ORDERED: ZOSYN VIAL 3.375 GRAMS 3.375 G in NS 100 ML IV + SPIKE MINIBAG* 100 ML IV ONE (14:36)
[2018-04-03] MEDS ORDERED: ZOSYN VIAL 3.375 GRAMS IV ONE (15:15)
[2018-04-03] MEDS ORDERED: NS 100 ML IV + SPIKE MINIBAG* 100 ML IV ONE (15:15)
[2018-04-03 15:23] VITALS: BMI 34.9
[2018-04-03] MEDS ORDERED: NS + KCL 20 MEQ/L 1,000 ML IV ONE (15:29)
[2018-04-03] MEDS ORDERED: MORPHINE SULFATE INJ 2 MG INJ IVP PRN (15:57)
[2018-04-03] MEDS ORDERED: PHARMACY CONSULT - VANCOMYCIN XX SCH (16:00)
[2018-04-03] MEDS: NS + KCL 20 MEQ/L 1,000 ML IV SCH (16:03)
[2018-04-03] MEDS ORDERED: TYLENOL SUPP 650 MG ONE (16:19)
[2018-04-03] MEDS: TYLENOL SUPP 650 MG PR PRN ×2 (16:31→20:34)
[2018-04-03] MEDS ORDERED: SALINE 3% 15 ML NEB TX ONE (17:54)
[2018-04-03] MEDS: PEPCID 20 MG IV PREMIX* 20 MG/50 ML BAG IV SCH ×2 (17:57→20:50)
[2018-04-03] MEDS ORDERED: SALINE 3% 15 ML NEB TX NEB ONE (18:22)
[2018-04-03] MEDS: VANCOMYCIN HCL 1 GM VIAL 1 G in D5W 250 ML IV 250 ML IV SCH (20:50)
[2018-04-03] MEDS: DUONEB 0.5 MG/3 MG NEB SCH (21:38)
[2018-04-03] MEDS: ZOSYN VIAL 3.375 GRAMS 3.375 G in NS 100 ML IV + SPIKE MINIBAG* 100 ML IV SCH (22:38)
--- NOTE | 2018-04-03 23:14 | RAD ---
Right tibia and fibula-two views, 4 images Indication: Cellulitis Findings: The ankle joint is intact. Few diabetic type vascular calcifications noted. Knee joint appears relatively normal. There is no cortical lucency or malalignment. Subcutaneous soft tissue edema noted Impression: Soft tissue edema without acute osseous abnormality favoring cellulitis. Diabetic vascular calcifications noted. Reported By:
[2018-04-04 06:00] LABS: BASOPHILS % (AUTO) 0.2 % (0.2-1.0); EOSINOPHILS # (AUTO) 0.1 x10^3/uL (0.0-0.2); EOSINOPHILS % (AUTO) 1.4 % (0.9-2.9); HEMATOCRIT 34.5 % (36.0-47.0); HEMOGLOBIN 11.7 g/dL (12.0-16.0); LYMPHOCYTES # (AUTO) 0.4 X10^3/uL (1.3-2.9); LYMPHOCYTES % (AUTO) 6.7 % (21.0-51.0); MEAN CORPUSCULAR HEMOGLOBIN 33.5 pg (27.0-34.0); MEAN CORPUSCULAR HGB CONC 33.9 g/dL (33.0-35.0); MEAN CORPUSCULAR VOLUME 98.8 fL (80.0-100.0); MEAN PLATELET VOLUME 8.4 fL (7.4-11.0); MONOCYTES # (AUTO) 0.3 x10^3/uL (0.3-0.8); MONOCYTES % (AUTO) 4.7 % (0.0-13.0); NEUTROPHILS # (AUTO) 4.7 x10^3/uL (2.2-4.8); PLATELET COUNT 164 X10^3/uL (150.0-450.0); RED BLOOD COUNT 3.49 X10^6/uL (3.5-5.4); RED CELL DISTRIBUTION WIDTH 14.2 % (11.6-16.5); WHITE BLOOD COUNT 5.4 X10^3/uL (3.6-10.0)
[2018-04-04] MEDS: NS + KCL 20 MEQ/L 1,000 ML IV SCH ×2 (06:00→18:35)
[2018-04-04] MEDS: ZOSYN VIAL 3.375 GRAMS 3.375 G in NS 100 ML IV + SPIKE MINIBAG* 100 ML IV SCH ×3 (06:03→22:22)
[2018-04-04 06:15] LABS: ALANINE AMINOTRANSFERASE 25 Units/L (12-78); ALBUMIN 2.5 g/dL (3.4-5.0); ALKALINE PHOSPHATASE 55 Units/L (46-116); AMYLASE 194 Units/L (25-115); ASPARTATE AMINO TRANSFERASE 25 Units/L (15-37); BLOOD UREA NITROGEN 11 mg/dL (7-18); CALCIUM 7.5 mg/dL (8.5-10.1); CARBON DIOXIDE 26.3 mmol/L (21-32); CHLORIDE 105 mmol/L (98-107); COR CA(FOR HYPOALB) 8.7 mg/dL (8.5-10.1); LIPASE 104 Units/L (73-393); MAGNESIUM 1.6 mg/dL (1.7-2.9); SODIUM 139 mmol/L (136-145); TOTAL PROTEIN 5.9 g/dL (6.4-8.2); eGFR NON BLACK RACES > 60 (>60)
--- NOTE | 2018-04-04 07:40 | RAD ---
HISTORY: Dyspnea Study: Chest AP portable Comparison: 07/26/2017 Findings: The heart is mildly enlarged. No congestive heart failure is noted. The aorta is calcified. The lungs are hyperinflated. The right lung and left upper lung negro are clear. There is increased density in the retrocardiac area the left lower lobe which could be due to atelectasis, effusion, infiltrate or combination. The bony thorax is unremarkable. IMPRESSION: Abnormal parenchymal density retrocardiac area left lower lobe obscuring the left hemidiaphragm which could be on the basis of atelectasis, infiltrate, effusion or combination Lungs otherwise hyperinflated Reported By:
[2018-04-04] MEDS: DUONEB 0.5 MG/3 MG NEB SCH ×4 (08:08→21:24)
[2018-04-04] MEDS: PEPCID 20 MG IV PREMIX* 20 MG/50 ML BAG IV SCH ×2 (09:16→20:50)
[2018-04-04] MEDS: VANCOMYCIN HCL 1 GM VIAL 1 G in D5W 250 ML IV 250 ML IV SCH ×2 (09:16→20:55)
[2018-04-04] MEDS ORDERED: SENOKOT PO PRN (09:27)
[2018-04-04] MEDS ORDERED: TYLENOL 500 MG TAB EXTRA STRENGTH PO PRN (09:27)
[2018-04-04] MEDS ORDERED: IBANDRONATE 150 MG PO SCH (09:30)
[2018-04-04] MEDS ORDERED: LISINOPRIL 2.5 MG PO SCH (09:30)
[2018-04-04] MEDS ORDERED: ASPIRIN 81 MG PO SCH (09:30)
[2018-04-04] MEDS ORDERED: OMEGA DHA EPA FISH OIL PO SCH (09:30)
[2018-04-04] MEDS ORDERED: GARLIC 300 MG PO SCH (09:30)
[2018-04-04] MEDS ORDERED: PREDNISONE 5 MG PO SCH (09:30)
[2018-04-04] MEDS ORDERED: VITAMIN B COMPLEX PO SCH (09:30)
[2018-04-04] MEDS ORDERED: MULTIVIT MIN IRON FA LUTEIN PO SCH (09:30)
[2018-04-04] MEDS ORDERED: SYNTHROID 75 mcg TAB PO SCH (10:00)
[2018-04-04] MEDS ORDERED: ASPIRIN EC 81 MG PO ONE (10:03)
[2018-04-04] MEDS ORDERED: LOVAZA PO ONE (10:04)
[2018-04-04] MEDS ORDERED: PREDNISONE TAB 5 MG PO ONE (10:04)
[2018-04-04] MEDS ORDERED: PROTONIX INJ 40 MG VIAL ONE (10:04)
[2018-04-04] MEDS ORDERED: ZESTRIL TAB 5 MG ONE (10:04)
[2018-04-04] MEDS ORDERED: LASIX ONE (10:05)
[2018-04-04] MEDS ORDERED: MICRO K EXTEN CAP 10 MEQ PO ONE (10:05)
[2018-04-04] MEDS: SODIUM CHLORIDE OP SCH ×3 (10:16→22:22)
[2018-04-04] MEDS: VITAMIN C PO SCH (10:16)
[2018-04-04] MEDS: [UNRECOGNIZED DRUG - OTHER] OP SCH ×3 (10:16→22:22)
[2018-04-04] MEDS: SYNTHROID 50 mcg TAB PO SCH (10:16)
[2018-04-04] MEDS: PREDNISONE TAB 5 MG PO SCH (10:17)
[2018-04-04] MEDS: LASIX PO SCH (10:17)
[2018-04-04] MEDS: PROTONIX INJ 40 MG VIAL IVP SCH (10:17)
[2018-04-04] MEDS: LOVAZA PO SCH (10:17)
[2018-04-04] MEDS: ZESTRIL TAB 5 MG PO SCH (10:17)
[2018-04-04] MEDS: MICRO K EXTEN CAP 10 MEQ PO SCH (10:17)
[2018-04-04] MEDS: ASPIRIN EC 81 MG PO SCH (10:18)
--- NOTE | 2018-04-04 10:30 | DR.PROGNOT ---
Hospital Progress Notes - Progress Note for Day of: Progress Note Date: 04/04/18 - Chief Complaint Chief Complaint: more alert .no abdominal pain today . no further nausea or vomiting .tolerating liquid diet .c/o pain RLE.mild drainage from the leg laceration which was cultured . amylase slightly up 194. afebrile - Past Medical Family Social History Past Med/Fam/Surg Hx: No changes since H&P Allergies: Allergies cephalexin Allergy (Verified 07/24/17 08:20) clarithromycin [From Biaxin] Allergy (Verified 07/24/17 08:20) - Review Of Systems ROS: No change since H&P - Vital Signs Vital Signs: Temperature 97.6 F Pulse Rate [Left] 70 Pulse Rate 71 Respiratory Rate 20 Blood Pressure [Left Arm] 153/65 Blood Pressure [Right Arm] 137/61 Blood Pressure 138/64 O2 Sat by Pulse Oximetry 99 - Physical Exam Oriented: Normal Eyes: Normal Nose: Normal Throat: Normal Respiratory: Normal Cardiovascular: Normal : Normal GI:Auscultation: Normal GI: Tenderness: Epigastric (mild epigastric and RUQ tenderness , no rebound , BS +) Skin: Other (bilateral ecchymotic areas on the lower extr with 2 x 2 cm open but superfacial area Rt lower leg .distal pulses weak but positive with doppler .) Speech Pattern: Clear, Appropriate - Laboratory and Diagnostics Result Diagrams: 04/04/18 05:00 04/04/18 05:00 Labs: 04/03/18 19:03 Sputum - Expectorated Sputum - Final 04/03/18 17:00 Leg - Right Gram Stain - Final Laboratory WBC 5.4 X10^3/uL (3.6-10.0) 04/04/18 05:00 RBC 3.49 X10^6/uL (3.5-5.4) L 04/04/18 05:00 Hgb 11.7 g/dL (12.0-16.0) L 04/04/18 05:00 Hct 34.5 % (36.0-47.0) L 04/04/18 05:00 MCV 98.8 fL (80.0-100.0) 04/04/18 05:00 MCH 33.5 pg (27.0-34.0) 04/04/18 05:00 MCHC 33.9 g/dL (33.0-35.0) 04/04/18 05:00 RDW 14.2 % (11.6-16.5) 04/04/18 05:00 Plt Count 164 X10^3/uL (150.0-450.0) 04/04/18 05:00 Plt Count Comment Adequate (ADEQUATE) 04/03/18 10:15 MPV 8.4 fL (7.4-11.0) 04/04/18 05:00 Neut % (Auto) 87.0 % (42.0-75.0) H 04/04/18 05:00 Lymph % (Auto) 6.7 % (21.0-51.0) L 04/04/18 05:00 [place] % (Auto) 4.7 % (0.0-13.0) 04/04/18 05:00 Eos % (Auto) 1.4 % (0.9-2.9) 04/04/18 05:00 Baso % (Auto) 0.2 % (0.2-1.0) 04/04/18 05:00 Neut # (Auto) 4.7 x10^3/uL (2.2-4.8) 04/04/18 05:00 Lymph # (Auto) 0.4 X10^3/uL (1.3-2.9) L 04/04/18 05:00 [place] # (Auto) 0.3 x10^3/uL (0.3-0.8) 04/04/18 05:00 Eos # (Auto) 0.1 x10^3/uL (0.0-0.2) 04/04/18 05:00 Baso # (Auto) 0.0 X10^3/uL (0.0-0.1) 04/04/18 05:00 Absolute Nucleated RBC 0.0 /100WBC 04/04/18 05:00 Total Counted 100 04/03/18 10:15 Neutrophils % (Manual) 87 % (39-76) H 04/03/18 10:15 Band Neutrophils % 3 % (0-10) 04/03/18 10:15 Lymphocytes % (Manual) 8 % (13-43) L 04/03/18 10:15 Monocytes % (Manual) 2 % (4-9) L 04/03/18 10:15 Plt Morphology Comment Normal (NORMAL) 04/03/18 10:15 RBC Morphology Normal (NORMAL) 04/03/18 10:15 ESR 22 MM/HOUR (0-20) H 04/03/18 17:36 Sodium 139 mmol/L (136-145) 04/04/18 05:00 Corrected Sodium TNP 04/04/18 05:00 Potassium 3.9 mmol/L (3.5-5.1) 04/04/18 05:00 Chloride 105 mmol/L (98-107) 04/04/18 05:00 Carbon Dioxide 26.3 mmol/L (21-32) 04/04/18 05:00 BUN 11 mg/dL (7-18) 04/04/18 05:00 Creatinine 0.90 mg/dL (0.55-1.02) 04/04/18 05:00 Est GFR (MDRD) Af Amer > 60 (>60) 04/04/18 05:00 Est GFR (MDRD) Non-Af > 60 (>60) 04/04/18 05:00 Glucose 93 mg/dL (65-99) 04/04/18 05:00 Lactic Acid 1.1 mmol/L (0.4-2.0) 04/03/18 14:57 Calcium 7.5 mg/dL (8.5-10.1) L 04/04/18 05:00 Corrected Calcium 8.7 mg/dL (8.5-10.1) 04/04/18 05:00 Magnesium 1.6 mg/dL (1.7-2.9) L 04/04/18 05:00 Total Bilirubin 0.70 mg/dL (0.2-1.0) 04/04/18 05:00 AST 25 Units/L (15-37) 04/04/18 05:00 ALT 25 Units/L (12-78) 04/04/18 05:00 Alkaline Phosphatase 55 Units/L (46-116) 04/04/18 05:00 C-Reactive Protein 54.90 mg/L (0-3.0) H 04/03/18 17:36 Total Protein 5.9 g/dL (6.4-8.2) L 04/04/18 05:00 Albumin 2.5 g/dL (3.4-5.0) L 04/04/18 05:00 Globulin 3.4 g/dL (2.5-4.5) 04/04/18 05:00 Albumin/Globulin Ratio 0.7 Ratio (1.1-2.1) L 04/04/18 05:00 Amylase 194 Units/L (25-115) H 04/04/18 05:00 Lipase 104 Units/L (73-393) 04/04/18 05:00 Specimen Type Catherized urine 04/03/18 14:10 Urine Color Yellow (YELLOW) 04/03/18 14:10 Urine Appearance Clear (CLEAR) 04/03/18 14:10 Urine pH 8.0 (5.0 - 8.0) 04/03/18 14:10 Ur Specific [place] 1.015 (1.000-1.030) 04/03/18 14:10 Urine Protein Negative (NEGATIVE) 04/03/18 14:10 Urine Glucose (UA) Negative (NEGATIVE) 04/03/18 14:10 Urine Ketones Negative (NEGATIVE) 04/03/18 14:10 Urine Occult Blood Negative (NEGATIVE) 04/03/18 14:10 Urine Nitrite Negative (NEGATIVE) 04/03/18 14:10 Urine Bilirubin Negative (NEGATIVE) 04/03/18 14:10 Urine Urobilinogen Normal (NORMAL) 04/03/18 14:10 Ur Leukocyte Esterase Negative (NEGATIVE) 04/03/18 14:10 Influenza Type A (PCR) Negative (NEGATIVE) 04/03/18 17:34 Influenza Type B (PCR) Negative (NEGATIVE) 04/03/18 17:34 - Assessment and Plan 1: recurrent calculus cholecystitis . dehydration. GERD with h/o esophageal s tricture . same IVF , Protonix and advance diet 2: Rt leg laceration with moderate cellulitis . local care ,ATB , leg elevation.. - Problem Patient Problems: Patient Problems Abdominal pain (Acute) R10.9 Decreased nausea and vomiting (Acute) R11.2 Cellulitis (Acute) L03.90
[2018-04-04] MEDS ORDERED: BACTROBAN TOPICAL OINT ONE (11:20)
[2018-04-04] MEDS ORDERED: MAGNESIUM SULFATE 1 GRAM/100 mL PREMIX 1 G/100 ML BAG IV ONE (11:38)
[2018-04-04] MEDS: TYLENOL SUPP 650 MG PR PRN ×2 (11:57→23:45)
[2018-04-04] MEDS: ZOFRAN INJ 4 MG VIAL IVP PRN ×2 (11:58→21:35)
[2018-04-04] MEDS: MAGNESIUM SULFATE 1 GRAM/100 mL PREMIX 1 GM/100 ML BAG IV PRN ×2 (12:00→13:50)
[2018-04-04] MEDS: PEG PROPYLENE GLYCOL OP SCH ×2 (13:50→22:22)
--- NOTE | 2018-04-04 13:50 | DR.H&P ---
H&P - History & Physical for Day of: H&P Date: 04/03/18 - Chief Complaint Chief Complaint: N/V LOWER EXTREMITY WOUND, REDNESS - History of Present Illness History of Present Illness: 87 WF ER ADMISSION AFTER PRESENTING WITH CO RIGHT LOWER EXTREMITY CELLULITIS, STARTED ON PO BACTRIM AND TOOK ONE DOSE AND BECAME VERY NAUSEATED WITH VOMITING. PT HAS NO KNOW DRUG ALLERGY. PT HAD WOUND CULTURE POSITIVE FOR STAPH PER PCP AND GIVEN RX FOR BACTRIM. PT HAS PMH OF OA, ADRENAL GLAND INSUFF, HX GALLSTONES AND GERD. PT HAD HAD FEVER, CXR ON ADMISSION POSSIBLE PNEUMONIA. PT DENIES ANY CCC OVER PAST FEW DAYS, DENIES SOB. PT ADMITTED FOR IV ATBX FOR RLE CELLULITIS AND PNEUMONIA PROTOCOL. - Past Medical History Past Medical History: Anxiety, Hypothyroidism, GERD Additional Medical History: ANDRAL GLAND INSUFFICIENCY - Past Surgical History Surgical History: Hysterectomy, Ortho Surgery, Other - Family History Family Medical History: Diabetes Mellitus, Cancer, [place] - Social History Does patient currently use any type of tobacco product: No Have you used tobacco products in the last 12 months: No Type of Tobacco Use: None Does any household member use tobacco: No Alcohol Use: None Drug Use: Prescription Drugs - Medications Home Medications: cephalexin Allergy (Verified 07/24/17 08:20) clarithromycin [From Biaxin] Allergy (Verified 07/24/17 08:20) CONTINUE taking the following medications calcium-vits Y4-V-L8-minerals [Bone Essentials] 1 tab PO DAILY 04/03/18 [H istory] clonazepam 1 mg PO HS 04/03/18 [History] esomeprazole magnesium [Nexium] 20 mg PO DAILY 04/03/18 [History] fluconazole 200 mg PO DAILY 04/03/18 [History] furosemide 20 mg PO DAILY 04/03/18 [History] ibandronate [Boniva] 150 mg PO MONTHLY 04/03/18 [History] levothyroxine 1 tab/day PO DAILY 04/03/18 [History] tkljenwp-bgf-gbkv-FA-lutein [[employer]'s Mature] 1 tab PO DAILY 04/03/18 [History] naproxen sodium [Aleve] 1 tab PO DAILY PRN 04/03/18 [History] omega 3-ffr-qad-fish oil [Fish Oil] 1 cap PO DAILY 04/03/18 [History] peg 400-propylene glycol [Systane (propylene glycol)] 1 drp OPHTHALMIC (EYE) TID 04/03/18 [History] potassium chloride 10 meq PO DAILY 04/03/18 [History] sennosides [Senna Lax] 8.6 mg PO DAILY PRN 04/03/18 [History] sodium chloride [Jeison 128] 1 drp OPHTHALMIC (EYE) TID 04/03/18 [History] vitamin B complex [Super B-50 Complex Plus] 1 tab PO DAILY 04/03/18 [History] - Review of Systems Constitutional: Fever, Weakness Eyes: No Symptoms Reported ENT: No Symptoms Reported Respiratory: No Symptoms Reported Cardiovascular: No Symptoms Reported Gastrointestinal: Nausea, Vomiting, Abdominal Pain. denies: Diarrhea Genitourinary: No Symptoms Reported Musculoskeletal: Back Pain Skin: No Symptoms Reported Neurological: No Symptoms Reported - Physical Exam Vital Signs: Temperature 102.1 F Pulse Rate [Left] 82 Pulse Rate 71 Respiratory Rate 20 Blood Pressure [Left Arm] 175/70 Blood Pressure [Right Arm] 137/61 Blood Pressure 138/64 O2 Sat by Pulse Oximetry 99 Oriented: Normal Eyes: Normal Ear: Normal Nose: Normal Throat: Normal Respiratory: RLL Diminished, LLL Diminished Cardiovascular: Normal, Edema : Normal Auscultation: Bowel Sounds: Normal Palpation: Normal Tenderness: Normal Skin: Red, Wound Musculoskeletal: Right, Leg Psychiatric: Anxiety Affect: Anxious Speech Pattern: Clear, Appropriate - Assessment/Plan (1) Cellulitis of leg, right Status: Acute Plan: WOUND AND BLOOD CULTURES. IV ATBX, VERIFY AND RESUME HOME MEDICATION. SPUTUM CULTURE, RESP CONSULT. BP CONTROL, PAIN CONTROL. FEVER MONITORING (2) Leg wound, right Status: Acute (3) Pneumonia Status: Acute - Allergies Allergies/Adverse Reactions: Allergies Allergy/AdvReac Type Severity Reaction Status Date / Time cephalexin Allergy Verified 07/24/17 08:20 clarithromycin [From Biaxin] Allergy Verified 07/24/17 08:20
[2018-04-04] MEDS: LOVENOX INJ 40 MG SYR SC SCH (14:34)
[2018-04-04] MEDS: LIPITOR TAB 10 MG PO SCH (20:54)
[2018-04-04] MEDS ORDERED: KLONOPIN TAB 1 MG PO SCH (21:00)
[2018-04-05] MEDS: NS + KCL 20 MEQ/L 1,000 ML IV SCH ×3 (04:57→21:19)
[2018-04-05] MEDS: PEG PROPYLENE GLYCOL OP SCH ×3 (05:22→21:20)
[2018-04-05] MEDS: [UNRECOGNIZED DRUG - OTHER] OP SCH ×3 (05:23→21:20)
[2018-04-05] MEDS: SODIUM CHLORIDE OP SCH ×3 (05:23→21:20)
[2018-04-05] MEDS: ZOSYN VIAL 3.375 GRAMS 3.375 G in NS 100 ML IV + SPIKE MINIBAG* 100 ML IV SCH ×3 (05:23→21:20)
[2018-04-05 06:33] LABS: BASOPHILS % (AUTO) 0.1 % (0.2-1.0); EOSINOPHILS # (AUTO) 0.1 x10^3/uL (0.0-0.2); EOSINOPHILS % (AUTO) 1.1 % (0.9-2.9); HEMATOCRIT 30.3 % (36.0-47.0); HEMOGLOBIN 10.6 g/dL (12.0-16.0); LYMPHOCYTES # (AUTO) 0.5 X10^3/uL (1.3-2.9); LYMPHOCYTES % (AUTO) 7.4 % (21.0-51.0); MEAN CORPUSCULAR HEMOGLOBIN 33.9 pg (27.0-34.0); MEAN CORPUSCULAR HGB CONC 34.9 g/dL (33.0-35.0); MEAN CORPUSCULAR VOLUME 97.3 fL (80.0-100.0); MEAN PLATELET VOLUME 8.4 fL (7.4-11.0); MONOCYTES # (AUTO) 0.2 x10^3/uL (0.3-0.8); MONOCYTES % (AUTO) 3.6 % (0.0-13.0); NEUTROPHILS # (AUTO) 5.7 x10^3/uL (2.2-4.8); NEUTROPHILS % (AUTO) 87.8 % (42.0-75.0); PLATELET COUNT 144 X10^3/uL (150.0-450.0); RED BLOOD COUNT 3.11 X10^6/uL (3.5-5.4); RED CELL DISTRIBUTION WIDTH 13.9 % (11.6-16.5); WHITE BLOOD COUNT 6.5 X10^3/uL (3.6-10.0)
--- NOTE | 2018-04-05 06:56 | RAD ---
HISTORY: Dyspnea Study: Chest AP portable Comparison: 04/04/2018 Findings: The heart is mildly enlarged. No congestive heart failure is noted. The aorta is calcified. The lungs remain hyperinflated. Interstitial lung changes are present bilaterally. There is now small right basilar infiltrate. Small right pleural effusion is present. Persistent retrocardiac density is again identified unchanged from the prior examination. Differential diagnosis is unchanged. The remainder of the lung negro are clear. IMPRESSION: New right basilar lung infiltrate Persistent retrocardiac density which could be on the basis of atelectasis, infiltrate, effusion or combination Mild interstitial lung changes Small right pleural effusion Reported By:
[2018-04-05 06:59] LABS: ALANINE AMINOTRANSFERASE 26 Units/L (12-78); ALBUMIN 2.1 g/dL (3.4-5.0); ALKALINE PHOSPHATASE 77 Units/L (46-116); ASPARTATE AMINO TRANSFERASE 26 Units/L (15-37); BLOOD UREA NITROGEN 9 mg/dL (7-18); CALCIUM 7.5 mg/dL (8.5-10.1); CARBON DIOXIDE 24.2 mmol/L (21-32); CHLORIDE 106 mmol/L (98-107); CREATININE 0.89 mg/dL (0.55-1.02); MAGNESIUM 2.2 mg/dL (1.7-2.9); SODIUM 138 mmol/L (136-145); TOTAL PROTEIN 5.6 g/dL (6.4-8.2); eGFR NON BLACK RACES > 60 (>60)
[2018-04-05] MEDS: PEPCID 20 MG IV PREMIX* 20 MG/50 ML BAG IV SCH ×2 (08:29→21:20)
[2018-04-05] MEDS: LOVENOX INJ 40 MG SYR SC SCH (08:29)
[2018-04-05] MEDS: PROTONIX INJ 40 MG VIAL IVP SCH (08:29)
[2018-04-05] MEDS: VITAMIN C PO SCH (08:30)
[2018-04-05] MEDS: TAB-A-VITE PO SCH ×2 (08:30→09:53)
[2018-04-05] MEDS: ASPIRIN EC 81 MG PO SCH ×2 (08:30→09:53)
[2018-04-05] MEDS: MICRO K EXTEN CAP 10 MEQ PO SCH (08:30)
[2018-04-05] MEDS: ZESTRIL TAB 5 MG PO SCH ×2 (08:30→09:51)
[2018-04-05] MEDS ORDERED: PHARMACY COMMENT IV NR ×2 (08:30)
[2018-04-05] MEDS: LOVAZA PO SCH (08:30)
[2018-04-05] MEDS: LASIX PO SCH (08:31)
[2018-04-05] MEDS: SYNTHROID 50 mcg TAB PO SCH (08:31)
[2018-04-05] MEDS: PREDNISONE TAB 5 MG PO SCH (08:31)
[2018-04-05 08:39] LABS: CREATININE 0.96 mg/dL (0.55-1.02); VANCOMYCIN,TROUGH 13.9 ug/mL (15-20)
[2018-04-05] MEDS ORDERED: LASIX ONE (08:43)
[2018-04-05] MEDS ORDERED: LASIX IVP ONE (08:44)
[2018-04-05] MEDS: VANCOMYCIN HCL 1 GM VIAL 1 G in D5W 250 ML IV 250 ML IV SCH ×2 (08:49→22:02)
[2018-04-05] MEDS: DUONEB 0.5 MG/3 MG NEB SCH ×4 (08:52→20:05)
[2018-04-05] MEDS ORDERED: ESOMEPRAZOLE MAGNESIUM 20 MG PO SCH (09:00)
--- NOTE | 2018-04-05 13:47 | CT ---
HISTORY: Chest pain, shortness of breath Study: CT chest without contrast Comparison: Abdomen CT 04/03/2018 Technique: Multiple axial images of the chest were obtained from the thoracic inlet to the upper abdomen without IV contrast. Dose reduction techniques including Automated Exposure Control (AEC) and adjustment of mA and kV were utilized. Findings: Please note evaluation is limited without IV contrast. The heart is borderline enlarged. There is calcified plaque in the coronary arteries and at mitral valve annulus. Aorta is normal in caliber. There are small bilateral pleural effusions, greater on the left with bibasilar atelectasis and nonspecific ground-glass opacities. Airways are patent. No mass or adenopathy is identified. No pneumothorax. There are degenerative changes of the bony thorax without acute osseous abnormality. Incidental note is made of mild colonic bowel wall thickening and pericolonic stranding in the left upper quadrant involving the splenic flexure of the colon. IMPRESSION: 1. Small bilateral pleural effusions and bibasilar atelectasis. There are scattered nonspecific ground-glass opacities at the lung bases that may represent additional atelectasis or edema. 2. Mild cardiomegaly. 3. Incidental note of partially visualized inflammatory changes involving the splenic flexure of the colon. Correlate clinically for colitis/enteritis. Reported By:
--- NOTE | 2018-04-05 13:59 | PCM.PROG ---
Progress Note - Progress Note for Day of Date of Exam: 04/04/18 - Subjective Subjective: 87 WF ER ADMISSION AFTER PRESENTING WITH CO N/V AND RLE CELLULITIS. PT FAILED OUTPT TREATMENT FOR RLE CELLULITIS. PT CURRENTLY ON IV VANCOMYCIN AND ZOSYN. CT ON ADMISSION REVEALED GALLSTONES WITHOUT S/S ACUTE CHOLECYSTITIS, CONSULTED BY DR FLYNN. PT DID HAVE PNEUMONIA ON CHEST XRAY, CULTURES COLLECTED ON ADMISSION AND CURRENTLY ON JET NEBS. PT DENIES SOB OR CHEST PAIN, OCCASSIONAL NON PRODUCTIVE COUGH. - Past Medical Family Social History Past Med/Fam/Surg Hx: No changes since H&P Allergies: Allergies cephalexin Allergy (Verified 07/24/17 08:20) clarithromycin [From Biaxin] Allergy (Verified 07/24/17 08:20) - Review of Systems ROS: No change since H&P - Vital Signs and I&O's Vital Signs: Temperature 98.2 F Pulse Rate [Left] 74 Pulse Rate 86 Respiratory Rate 18 Blood Pressure [Left Arm] 136/65 Blood Pressure [Right Arm] 137/61 Blood Pressure 138/64 O2 Sat by Pulse Oximetry 96 Intake and Output: Intake & Output 04/03/18 04/04/18 04/05/18 04/06/18 11:59 11:59 11:59 11:59 Intake Total 1050 / 1050 1625 / 1625 Output Total 1475 / 1475 3775 / 3775 Balance -425 / -425 -2150 / -2150 - Physical Exam Oriented: Normal Eyes: Normal Ear: Normal Nose: Normal Throat: Normal Respiratory: Diminished Cardiovascular: Normal, Edema : Normal Auscultation: Bowel Sounds: Normal Tenderness: Normal Skin: Red, Wound Musculoskeletal: Right, Leg Psychiatric: Anxiety Affect: Anxious Speech Pattern: Clear, Appropriate - Laboratory and Diagnostics Result Diagrams: 04/05/18 05:45 04/05/18 08:15 Labs: 04/03/18 19:03 Sputum - Expectorated Sputum Sputum Culture - Final 04/03/18 19:03 Sputum - Expectorated Sputum - Final 04/03/18 17:00 Leg - Right Gram Stain - Final 04/03/18 17:00 Leg - Right Wound Culture - Preliminary 04/03/18 14:59 Blood Blood Culture - Preliminary 04/03/18 14:57 Blood Blood Culture - Preliminary Laboratory WBC 6.5 X10^3/uL (3.6-10.0) 04/05/18 05:45 RBC 3.11 X10^6/uL (3.5-5.4) L 04/05/18 05:45 Hgb 10.6 g/dL (12.0-16.0) L 04/05/18 05:45 Hct 30.3 % (36.0-47.0) L 04/05/18 05:45 MCV 97.3 fL (80.0-100.0) 04/05/18 05:45 MCH 33.9 pg (27.0-34.0) 04/05/18 05:45 MCHC 34.9 g/dL (33.0-35.0) 04/05/18 05:45 RDW 13.9 % (11.6-16.5) 04/05/18 05:45 Plt Count 144 X10^3/uL (150.0-450.0) L 04/05/18 05:45 Plt Count Comment Adequate (ADEQUATE) 04/03/18 10:15 MPV 8.4 fL (7.4-11.0) 04/05/18 05:45 Neut % (Auto) 87.8 % (42.0-75.0) H 04/05/18 05:45 Lymph % (Auto) 7.4 % (21.0-51.0) L 04/05/18 05:45 [place] % (Auto) 3.6 % (0.0-13.0) 04/05/18 05:45 Eos % (Auto) 1.1 % (0.9-2.9) 04/05/18 05:45 Baso % (Auto) 0.1 % (0.2-1.0) L 04/05/18 05:45 Neut # (Auto) 5.7 x10^3/uL (2.2-4.8) H 04/05/18 05:45 Lymph # (Auto) 0.5 X10^3/uL (1.3-2.9) L 04/05/18 05:45 [place] # (Auto) 0.2 x10^3/uL (0.3-0.8) L 04/05/18 05:45 Eos # (Auto) 0.1 x10^3/uL (0.0-0.2) 04/05/18 05:45 Baso # (Auto) 0.0 X10^3/uL (0.0-0.1) 04/05/18 05:45 Absolute Nucleated RBC 0.0 /100WBC 04/05/18 05:45 Total Counted 100 04/03/18 10:15 Neutrophils % (Manual) 87 % (39-76) H 04/03/18 10:15 Band Neutrophils % 3 % (0-10) 04/03/18 10:15 Lymphocytes % (Manual) 8 % (13-43) L 04/03/18 10:15 Monocytes % (Manual) 2 % (4-9) L 04/03/18 10:15 Plt Morphology Comment Normal (NORMAL) 04/03/18 10:15 RBC Morphology Normal (NORMAL) 04/03/18 10:15 ESR 22 MM/HOUR (0-20) H 04/03/18 17:36 Sodium 138 mmol/L (136-145) 04/05/18 05:45 Corrected Sodium TNP 04/05/18 05:45 Potassium 4.0 mmol/L (3.5-5.1) 04/05/18 05:45 Chloride 106 mmol/L (98-107) 04/05/18 05:45 Carbon Dioxide 24.2 mmol/L (21-32) 04/05/18 05:45 BUN 9 mg/dL (7-18) 04/05/18 05:45 Creatinine 0.96 mg/dL (0.55-1.02) 04/05/18 08:15 Est GFR (MDRD) Af Amer > 60 (>60) 04/05/18 05:45 Est GFR (MDRD) Non-Af > 60 (>60) 04/05/18 05:45 Glucose 110 mg/dL (65-99) H 04/05/18 05:45 Lactic Acid 1.4 mmol/L (0.4-2.0) 04/04/18 12:42 Calcium 7.5 mg/dL (8.5-10.1) L 04/05/18 05:45 Corrected Calcium 9.0 mg/dL (8.5-10.1) 04/05/18 05:45 Magnesium 2.2 mg/dL (1.7-2.9) 04/05/18 05:45 Total Bilirubin 0.60 mg/dL (0.2-1.0) 04/05/18 05:45 AST 26 Units/L (15-37) 04/05/18 05:45 ALT 26 Units/L (12-78) 04/05/18 05:45 Alkaline Phosphatase 77 Units/L (46-116) 04/05/18 05:45 C-Reactive Protein 54.90 mg/L (0-3.0) H 04/03/18 17:36 Total Protein 5.6 g/dL (6.4-8.2) L 04/05/18 05:45 Albumin 2.1 g/dL (3.4-5.0) L 04/05/18 05:45 Globulin 3.5 g/dL (2.5-4.5) 04/05/18 05:45 Albumin/Globulin Ratio 0.6 Ratio (1.1-2.1) L 04/05/18 05:45 Amylase 194 Units/L (25-115) H 04/04/18 05:00 Lipase 104 Units/L (73-393) 04/04/18 05:00 Specimen Type Catherized urine 04/03/18 14:10 Urine Color Yellow (YELLOW) 04/03/18 14:10 Urine Appearance Clear (CLEAR) 04/03/18 14:10 Urine pH 8.0 (5.0 - 8.0) 04/03/18 14:10 Ur Specific [place] 1.015 (1.000-1.030) 04/03/18 14:10 Urine Protein Negative (NEGATIVE) 04/03/18 14:10 Urine Glucose (UA) Negative (NEGATIVE) 04/03/18 14:10 Urine Ketones Negative (NEGATIVE) 04/03/18 14:10 Urine Occult Blood Negative (NEGATIVE) 04/03/18 14:10 Urine Nitrite Negative (NEGATIVE) 04/03/18 14:10 Urine Bilirubin Negative (NEGATIVE) 04/03/18 14:10 Urine Urobilinogen Normal (NORMAL) 04/03/18 14:10 Ur Leukocyte Esterase Negative (NEGATIVE) 04/03/18 14:10 Vancomycin Trough 13.9 ug/mL (15-20) L 04/05/18 08:15 Influenza Type A (PCR) Negative (NEGATIVE) 04/03/18 17:34 Influenza Type B (PCR) Negative (NEGATIVE) 04/03/18 17:34 - Plan (1) Cellulitis of leg, right Status: Acute Plan: WOUND AND BLOOD CULTURES. IV ATBX, VERIFY AND RESUME HOME MEDICATION. SPUTUM CULTURE, RESP CONSULT. BP CONTROL, PAIN CONTROL. FEVER MONITORING (2) Leg wound, right Status: Acute (3) Pneumonia Status: Acute Plan: IV ATBX, RESP THERAPY, AM LABS. SUPPLEMENTAL O2 PRN
--- NOTE | 2018-04-05 14:04 | PCM.PROG ---
Progress Note - Progress Note for Day of Date of Exam: 04/05/18 - Subjective Subjective: 87 WF ER ADMISSION AFTER PRESENTING WITH CO N/V AND RLE CELLULITIS. PT FAILED OUTPT TREATMENT FOR RLE CELLULITIS. PT CURRENTLY ON IV VANCOMYCIN AND ZOSYN. CT ON ADMISSION REVEALED GALLSTONES WITHOUT S/S ACUTE CHOLECYSTITIS, CONSULTED BY DR FLYNN. PT DID HAVE PNEUMONIA ON CHEST XRAY, CULTURES COLLECTED ON ADMISSION AND CURRENTLY ON JET NEBS. SPUTUM NEGATIVE AT THIS TIME, PT CONTINUE WITH FEVER, NURSING STAFF REPORTS FREQUENT COUGHING WITH PO INTAKE INCLUDING LIQUIDS. SPEECH CONSULTED. PT HAD CT CHEST W/O THIS AM, IV LASIX, IV FLUIDS AT KVO, IV ATBX AND CONTINUE RESP THERAPY. RLE CELLULITIS SIGNIFICANTLY IMPROVED SINCE ADMISSION. WBC 6.5, CONTINUED WITH FEVER DURING THE NIGHT - Past Medical Family Social History Past Med/Fam/Surg Hx: No changes since H&P Allergies: Allergies cephalexin Allergy (Verified 07/24/17 08:20) clarithromycin [From Biaxin] Allergy (Verified 07/24/17 08:20) - Review of Systems ROS: No change since H&P - Vital Signs and I&O's Vital Signs: Temperature 98.2 F Pulse Rate [Left] 74 Pulse Rate 86 Respiratory Rate 18 Blood Pressure [Left Arm] 136/65 Blood Pressure [Right Arm] 137/61 Blood Pressure 138/64 O2 Sat by Pulse Oximetry 96 Intake and Output: Intake & Output 04/03/18 04/04/18 04/05/18 04/06/18 11:59 11:59 11:59 11:59 Intake Total 1050 / 1050 1625 / 1625 Output Total 1475 / 1475 3775 / 3775 Balance -425 / -425 -2150 / -2150 - Physical Exam Oriented: Normal Eyes: Normal Ear: Normal Nose: Normal Throat: Normal Respiratory: Diminished Cardiovascular: Normal, Edema : Normal Auscultation: Bowel Sounds: Normal Tenderness: Normal Skin: Red, Wound Musculoskeletal: Right, Leg Psychiatric: Anxiety Affect: Anxious Speech Pattern: Clear, Appropriate - Laboratory and Diagnostics Result Diagrams: 04/05/18 05:45 04/05/18 08:15 Labs: 04/03/18 19:03 Sputum - Expectorated Sputum Sputum Culture - Final 04/03/18 19:03 Sputum - Expectorated Sputum - Final 04/03/18 17:00 Leg - Right Gram Stain - Final 04/03/18 17:00 Leg - Right Wound Culture - Preliminary 04/03/18 14:59 Blood Blood Culture - Preliminary 04/03/18 14:57 Blood Blood Culture - Preliminary Laboratory WBC 6.5 X10^3/uL (3.6-10.0) 04/05/18 05:45 RBC 3.11 X10^6/uL (3.5-5.4) L 04/05/18 05:45 Hgb 10.6 g/dL (12.0-16.0) L 04/05/18 05:45 Hct 30.3 % (36.0-47.0) L 04/05/18 05:45 MCV 97.3 fL (80.0-100.0) 04/05/18 05:45 MCH 33.9 pg (27.0-34.0) 04/05/18 05:45 MCHC 34.9 g/dL (33.0-35.0) 04/05/18 05:45 RDW 13.9 % (11.6-16.5) 04/05/18 05:45 Plt Count 144 X10^3/uL (150.0-450.0) L 04/05/18 05:45 Plt Count Comment Adequate (ADEQUATE) 04/03/18 10:15 MPV 8.4 fL (7.4-11.0) 04/05/18 05:45 Neut % (Auto) 87.8 % (42.0-75.0) H 04/05/18 05:45 Lymph % (Auto) 7.4 % (21.0-51.0) L 04/05/18 05:45 [place] % (Auto) 3.6 % (0.0-13.0) 04/05/18 05:45 Eos % (Auto) 1.1 % (0.9-2.9) 04/05/18 05:45 Baso % (Auto) 0.1 % (0.2-1.0) L 04/05/18 05:45 Neut # (Auto) 5.7 x10^3/uL (2.2-4.8) H 04/05/18 05:45 Lymph # (Auto) 0.5 X10^3/uL (1.3-2.9) L 04/05/18 05:45 [place] # (Auto) 0.2 x10^3/uL (0.3-0.8) L 04/05/18 05:45 Eos # (Auto) 0.1 x10^3/uL (0.0-0.2) 04/05/18 05:45 Baso # (Auto) 0.0 X10^3/uL (0.0-0.1) 04/05/18 05:45 Absolute Nucleated RBC 0.0 /100WBC 04/05/18 05:45 Total Counted 100 04/03/18 10:15 Neutrophils % (Manual) 87 % (39-76) H 04/03/18 10:15 Band Neutrophils % 3 % (0-10) 04/03/18 10:15 Lymphocytes % (Manual) 8 % (13-43) L 04/03/18 10:15 Monocytes % (Manual) 2 % (4-9) L 04/03/18 10:15 Plt Morphology Comment Normal (NORMAL) 04/03/18 10:15 RBC Morphology Normal (NORMAL) 04/03/18 10:15 ESR 22 MM/HOUR (0-20) H 04/03/18 17:36 Sodium 138 mmol/L (136-145) 04/05/18 05:45 Corrected Sodium TNP 04/05/18 05:45 Potassium 4.0 mmol/L (3.5-5.1) 04/05/18 05:45 Chloride 106 mmol/L (98-107) 04/05/18 05:45 Carbon Dioxide 24.2 mmol/L (21-32) 04/05/18 05:45 BUN 9 mg/dL (7-18) 04/05/18 05:45 Creatinine 0.96 mg/dL (0.55-1.02) 04/05/18 08:15 Est GFR (MDRD) Af Amer > 60 (>60) 04/05/18 05:45 Est GFR (MDRD) Non-Af > 60 (>60) 04/05/18 05:45 Glucose 110 mg/dL (65-99) H 04/05/18 05:45 Lactic Acid 1.4 mmol/L (0.4-2.0) 04/04/18 12:42 Calcium 7.5 mg/dL (8.5-10.1) L 04/05/18 05:45 Corrected Calcium 9.0 mg/dL (8.5-10.1) 04/05/18 05:45 Magnesium 2.2 mg/dL (1.7-2.9) 04/05/18 05:45 Total Bilirubin 0.60 mg/dL (0.2-1.0) 04/05/18 05:45 AST 26 Units/L (15-37) 04/05/18 05:45 ALT 26 Units/L (12-78) 04/05/18 05:45 Alkaline Phosphatase 77 Units/L (46-116) 04/05/18 05:45 C-Reactive Protein 54.90 mg/L (0-3.0) H 04/03/18 17:36 Total Protein 5.6 g/dL (6.4-8.2) L 04/05/18 05:45 Albumin 2.1 g/dL (3.4-5.0) L 04/05/18 05:45 Globulin 3.5 g/dL (2.5-4.5) 04/05/18 05:45 Albumin/Globulin Ratio 0.6 Ratio (1.1-2.1) L 04/05/18 05:45 Amylase 194 Units/L (25-115) H 04/04/18 05:00 Lipase 104 Units/L (73-393) 04/04/18 05:00 Specimen Type Catherized urine 04/03/18 14:10 Urine Color Yellow (YELLOW) 04/03/18 14:10 Urine Appearance Clear (CLEAR) 04/03/18 14:10 Urine pH 8.0 (5.0 - 8.0) 04/03/18 14:10 Ur Specific [place] 1.015 (1.000-1.030) 04/03/18 14:10 Urine Protein Negative (NEGATIVE) 04/03/18 14:10 Urine Glucose (UA) Negative (NEGATIVE) 04/03/18 14:10 Urine Ketones Negative (NEGATIVE) 04/03/18 14:10 Urine Occult Blood Negative (NEGATIVE) 04/03/18 14:10 Urine Nitrite Negative (NEGATIVE) 04/03/18 14:10 Urine Bilirubin Negative (NEGATIVE) 04/03/18 14:10 Urine Urobilinogen Normal (NORMAL) 04/03/18 14:10 Ur Leukocyte Esterase Negative (NEGATIVE) 04/03/18 14:10 Vancomycin Trough 13.9 ug/mL (15-20) L 04/05/18 08:15 Influenza Type A (PCR) Negative (NEGATIVE) 04/03/18 17:34 Influenza Type B (PCR) Negative (NEGATIVE) 04/03/18 17:34 - Plan (1) Cellulitis of leg, right Status: Acute Plan: WOUND AND BLOOD CULTURES. IV ATBX, VERIFY AND RESUME HOME MEDICATION. SPUTUM CULTURE, RESP CONSULT. BP CONTROL, PAIN CONTROL. FEVER MONITORING (2) Leg wound, right Status: Acute (3) Pneumonia Status: Acute Plan: IV ATBX, RESP THERAPY, AM LABS. SUPPLEMENTAL O2 PRN. POSSIBLE ASPIRAT ION, SPEECH CONSULT. NPO (4) Dysphagia Status: Acute Plan: ESOPHAGEAL DIALATION IN FEB [address] VENEGAS. SPEECH CONSULT (5) Cough Status: Acute Plan: PRESENT WITH EATING OR DRINKING
[2018-04-05] MEDS: CARAFATE PO SCH ×2 (16:20→20:53)
[2018-04-05] MEDS: LIPITOR TAB 10 MG PO SCH (20:53)
[2018-04-05 21:28] LABS: CREATININE 1.17 mg/dL (0.55-1.02); VANCOMYCIN,TROUGH 19.8 ug/mL (15-20)
[2018-04-05] MEDS: KLONOPIN TAB 1 MG PO PRN (21:30)
[2018-04-06 06:13] LABS: BASOPHILS % (AUTO) 0.2 % (0.2-1.0); EOSINOPHILS # (AUTO) 0.1 x10^3/uL (0.0-0.2); EOSINOPHILS % (AUTO) 1.2 % (0.9-2.9); HEMATOCRIT 31.2 % (36.0-47.0); HEMOGLOBIN 10.9 g/dL (12.0-16.0); LYMPHOCYTES # (AUTO) 0.5 X10^3/uL (1.3-2.9); LYMPHOCYTES % (AUTO) 10.3 % (21.0-51.0); MEAN CORPUSCULAR HEMOGLOBIN 33.9 pg (27.0-34.0); MEAN CORPUSCULAR HGB CONC 34.8 g/dL (33.0-35.0); MEAN CORPUSCULAR VOLUME 97.4 fL (80.0-100.0); MEAN PLATELET VOLUME 8.7 fL (7.4-11.0); MONOCYTES # (AUTO) 0.3 x10^3/uL (0.3-0.8); MONOCYTES % (AUTO) 5.2 % (0.0-13.0); NEUTROPHILS # (AUTO) 4.4 x10^3/uL (2.2-4.8); NEUTROPHILS % (AUTO) 83.1 % (42.0-75.0); PLATELET COUNT 167 X10^3/uL (150.0-450.0); RED BLOOD COUNT 3.21 X10^6/uL (3.5-5.4); RED CELL DISTRIBUTION WIDTH 14.1 % (11.6-16.5); WHITE BLOOD COUNT 5.3 X10^3/uL (3.6-10.0)
[2018-04-06] MEDS: [UNRECOGNIZED DRUG - OTHER] OP SCH ×3 (06:26→21:37)
[2018-04-06] MEDS: SODIUM CHLORIDE OP SCH ×3 (06:26→21:37)
[2018-04-06] MEDS: PEG PROPYLENE GLYCOL OP SCH ×3 (06:26→21:37)
[2018-04-06] MEDS: ZOSYN VIAL 3.375 GRAMS 3.375 G in NS 100 ML IV + SPIKE MINIBAG* 100 ML IV SCH ×3 (06:27→22:00)
[2018-04-06] MEDS: CARAFATE PO SCH ×4 (06:30→20:37)
[2018-04-06 06:31] LABS: ALANINE AMINOTRANSFERASE 30 Units/L (12-78); ALBUMIN 2.4 g/dL (3.4-5.0); ALKALINE PHOSPHATASE 86 Units/L (46-116); ASPARTATE AMINO TRANSFERASE 32 Units/L (15-37); BLOOD UREA NITROGEN 13 mg/dL (7-18); CALCIUM 7.9 mg/dL (8.5-10.1); CARBON DIOXIDE 26.6 mmol/L (21-32); CHLORIDE 108 mmol/L (98-107); COR CA(FOR HYPOALB) 9.2 mg/dL (8.5-10.1); CREATININE 1.04 mg/dL (0.55-1.02); SODIUM 143 mmol/L (136-145); TOTAL PROTEIN 6.3 g/dL (6.4-8.2); eGFR NON BLACK RACES 54 (>60)
--- NOTE | 2018-04-06 07:44 | RAD ---
Examination: AP chest, portable History: Dyspnea Comparison 04/05/2018 Findings: Unchanged heart size. Persistent retrocardiac opacity consistent with lower lobe airspace disease. Persistent interstitial infiltrate right base with interval improvement. No new abnormality noted. Impression: Persistent consolidation/atelectasis left lower lobe. Improving interstitial infiltrate right base. No new abnormality demonstrated. Reported By:
[2018-04-06] MEDS: DUONEB 0.5 MG/3 MG NEB SCH ×4 (09:10→21:09)
[2018-04-06] MEDS: PROTONIX INJ 40 MG VIAL IVP SCH (09:30)
[2018-04-06] MEDS: ASPIRIN EC 81 MG PO SCH (09:30)
[2018-04-06] MEDS: LASIX PO SCH (09:30)
[2018-04-06] MEDS: VANCOMYCIN HCL 1 GM VIAL 1 G in D5W 250 ML IV 250 ML IV SCH ×2 (09:30→21:37)
[2018-04-06] MEDS: MICRO K EXTEN CAP 10 MEQ PO SCH (09:30)
[2018-04-06] MEDS: PREDNISONE TAB 5 MG PO SCH (09:30)
[2018-04-06] MEDS: TAB-A-VITE PO SCH (09:30)
[2018-04-06] MEDS: LOVAZA PO SCH (09:30)
[2018-04-06] MEDS: SYNTHROID 50 mcg TAB PO SCH (09:30)
[2018-04-06] MEDS: PEPCID 20 MG IV PREMIX* 20 MG/50 ML BAG IV SCH ×2 (09:30→21:37)
[2018-04-06] MEDS: ZESTRIL TAB 5 MG PO SCH (09:30)
[2018-04-06] MEDS: VITAMIN C PO SCH (09:30)
[2018-04-06] MEDS: LOVENOX INJ 40 MG SYR SC SCH (09:30)
[2018-04-06] MEDS: NS + KCL 20 MEQ/L 1,000 ML IV SCH (20:37)
[2018-04-06] MEDS: LIPITOR TAB 10 MG PO SCH (21:37)
[2018-04-06] MEDS: KLONOPIN TAB 1 MG PO PRN (21:37)
[2018-04-07 05:51] LABS: BASOPHILS % (AUTO) 0.6 % (0.2-1.0); EOSINOPHILS # (AUTO) 0.1 x10^3/uL (0.0-0.2); EOSINOPHILS % (AUTO) 2.6 % (0.9-2.9); HEMATOCRIT 32.4 % (36.0-47.0); HEMOGLOBIN 10.9 g/dL (12.0-16.0); LYMPHOCYTES # (AUTO) 0.8 X10^3/uL (1.3-2.9); LYMPHOCYTES % (AUTO) 15.2 % (21.0-51.0); MEAN CORPUSCULAR HGB CONC 33.5 g/dL (33.0-35.0); MEAN CORPUSCULAR VOLUME 98.4 fL (80.0-100.0); MEAN PLATELET VOLUME 8.6 fL (7.4-11.0); MONOCYTES # (AUTO) 0.5 x10^3/uL (0.3-0.8); MONOCYTES % (AUTO) 8.8 % (0.0-13.0); NEUTROPHILS # (AUTO) 3.8 x10^3/uL (2.2-4.8); NEUTROPHILS % (AUTO) 72.8 % (42.0-75.0); PLATELET COUNT 194 X10^3/uL (150.0-450.0); RED CELL DISTRIBUTION WIDTH 14.2 % (11.6-16.5); WHITE BLOOD COUNT 5.3 X10^3/uL (3.6-10.0)
[2018-04-07 05:57] LABS: ALANINE AMINOTRANSFERASE 27 Units/L (12-78); ALBUMIN 2.4 g/dL (3.4-5.0); ALKALINE PHOSPHATASE 82 Units/L (46-116); ASPARTATE AMINO TRANSFERASE 24 Units/L (15-37); BLOOD UREA NITROGEN 13 mg/dL (7-18); CALCIUM 8.1 mg/dL (8.5-10.1); CHLORIDE 107 mmol/L (98-107); COR CA(FOR HYPOALB) 9.4 mg/dL (8.5-10.1); CREATININE 0.88 mg/dL (0.55-1.02); SODIUM 144 mmol/L (136-145); TOTAL PROTEIN 6.2 g/dL (6.4-8.2); eGFR NON BLACK RACES > 60 (>60)
[2018-04-07] MEDS: ZOSYN VIAL 3.375 GRAMS 3.375 G in NS 100 ML IV + SPIKE MINIBAG* 100 ML IV SCH ×3 (06:01→21:48)
[2018-04-07] MEDS: NS + KCL 20 MEQ/L 1,000 ML IV SCH ×3 (06:01→21:16)
[2018-04-07] MEDS: SODIUM CHLORIDE OP SCH ×3 (06:02→21:48)
[2018-04-07] MEDS: CARAFATE PO SCH ×4 (06:02→21:17)
[2018-04-07] MEDS: [UNRECOGNIZED DRUG - OTHER] OP SCH ×3 (06:02→21:48)
[2018-04-07] MEDS: PEG PROPYLENE GLYCOL OP SCH ×3 (06:02→21:47)
[2018-04-07] MEDS ORDERED: VANCOMYCIN 1 GRAM PREMIX (ADDVANTAGE) 250 ML IV ONE (07:39)
[2018-04-07] MEDS: DUONEB 0.5 MG/3 MG NEB SCH ×4 (09:03→20:55)
[2018-04-07] MEDS: PROTONIX INJ 40 MG VIAL IVP SCH (09:15)
[2018-04-07] MEDS: PREDNISONE TAB 5 MG PO SCH (09:15)
[2018-04-07] MEDS: PEPCID 20 MG IV PREMIX* 20 MG/50 ML BAG IV SCH ×2 (09:15→21:47)
[2018-04-07] MEDS: VANCOMYCIN HCL 1 GM VIAL 1 G in D5W 250 ML IV 250 ML IV SCH ×2 (09:15→23:40)
[2018-04-07] MEDS: VITAMIN C PO SCH (09:15)
[2018-04-07] MEDS: TAB-A-VITE PO SCH (09:15)
[2018-04-07] MEDS: ASPIRIN EC 81 MG PO SCH (09:15)
[2018-04-07] MEDS: LOVENOX INJ 40 MG SYR SC SCH (09:15)
[2018-04-07] MEDS: LOVAZA PO SCH (09:15)
[2018-04-07] MEDS: MICRO K EXTEN CAP 10 MEQ PO SCH (09:15)
[2018-04-07] MEDS: ZESTRIL TAB 5 MG PO SCH (09:15)
[2018-04-07] MEDS: SYNTHROID 50 mcg TAB PO SCH (09:15)
[2018-04-07] MEDS: LASIX PO SCH (09:15)
--- NOTE | 2018-04-07 17:18 | RAD ---
HISTORY: Follow-up pneumonia Study: Single-view chest Comparison: April 06, 2018 Findings: Aortic atherosclerosis is noted. The trachea is midline. The cardiac silhouette is borderline enlarged when considering AP technique. There is overall stable patchy bibasilar consolidation with possible trace pleural effusions. There is no pneumothorax. The bony thorax is grossly unremarkable. IMPRESSION: Possible trace effusions and patchy bibasilar opacities which appear overall stable and for which differential considerations include atelectasis, pneumonia, and edema. Reported By:
[2018-04-07] MEDS ORDERED: CHRONULAC PO PRN (20:39)
[2018-04-07] MEDS ORDERED: COLACE CAP 100 MG PO PRN (20:39)
[2018-04-07] MEDS: KLONOPIN TAB 1 MG PO PRN (21:00)
[2018-04-07 21:47] LABS: CREATININE 1.24 mg/dL (0.55-1.02)
[2018-04-07] MEDS: LIPITOR TAB 10 MG PO SCH (21:47)
[2018-04-07 21:55] LABS: VANCOMYCIN,TROUGH 30.2 ug/mL (15-20)
[2018-04-07] MEDS ORDERED: PHARMACY CONSULT - VANCOMYCIN XX SCH (22:00)
[2018-04-08] MEDS: NS + KCL 20 MEQ/L 1,000 ML IV SCH ×2 (05:08→13:16)
[2018-04-08] MEDS: [UNRECOGNIZED DRUG - OTHER] OP SCH ×3 (05:08→21:56)
[2018-04-08] MEDS: PEG PROPYLENE GLYCOL OP SCH ×3 (05:08→21:56)
[2018-04-08] MEDS: SODIUM CHLORIDE OP SCH ×3 (05:08→21:56)
[2018-04-08] MEDS: ZOSYN VIAL 3.375 GRAMS 3.375 G in NS 100 ML IV + SPIKE MINIBAG* 100 ML IV SCH (05:09)
[2018-04-08] MEDS: CARAFATE PO SCH (05:32)
[2018-04-08 06:16] LABS: BASOPHILS # (AUTO) 0.1 X10^3/uL (0.0-0.1); EOSINOPHILS # (AUTO) 0.1 x10^3/uL (0.0-0.2); EOSINOPHILS % (AUTO) 2.7 % (0.9-2.9); HEMATOCRIT 31.7 % (36.0-47.0); LYMPHOCYTES # (AUTO) 1.1 X10^3/uL (1.3-2.9); LYMPHOCYTES % (AUTO) 19.2 % (21.0-51.0); MEAN CORPUSCULAR HEMOGLOBIN 33.8 pg (27.0-34.0); MEAN CORPUSCULAR HGB CONC 34.8 g/dL (33.0-35.0); MEAN PLATELET VOLUME 7.8 fL (7.4-11.0); MONOCYTES # (AUTO) 0.5 x10^3/uL (0.3-0.8); MONOCYTES % (AUTO) 9.2 % (0.0-13.0); NEUTROPHILS # (AUTO) 3.7 x10^3/uL (2.2-4.8); NEUTROPHILS % (AUTO) 67.9 % (42.0-75.0); PLATELET COUNT 216 X10^3/uL (150.0-450.0); RED BLOOD COUNT 3.27 X10^6/uL (3.5-5.4); WHITE BLOOD COUNT 5.5 X10^3/uL (3.6-10.0)
[2018-04-08 06:29] LABS: ALANINE AMINOTRANSFERASE 26 Units/L (12-78); ALBUMIN 2.3 g/dL (3.4-5.0); ALKALINE PHOSPHATASE 84 Units/L (46-116); ASPARTATE AMINO TRANSFERASE 24 Units/L (15-37); BLOOD UREA NITROGEN 13 mg/dL (7-18); CALCIUM 8.1 mg/dL (8.5-10.1); CARBON DIOXIDE 29.1 mmol/L (21-32); CHLORIDE 108 mmol/L (98-107); COR CA(FOR HYPOALB) 9.5 mg/dL (8.5-10.1); CREATININE 1.22 mg/dL (0.55-1.02); SODIUM 145 mmol/L (136-145); TOTAL PROTEIN 6.2 g/dL (6.4-8.2); eGFR NON BLACK RACES 45 (>60)
--- NOTE | 2018-04-08 06:57 | RAD ---
HISTORY: Follow-up pneumonia Study: Chest AP portable Comparison: 04/07/2018, 04/06/2018 Findings: The heart remains enlarged. The aleta are normal. The aorta is ectatic and calcified. The lungs are well inflated and free of acute alveolar infiltrates. Mild interstitial lung changes are present in the lower lobes bilaterally. A small left pleural effusion may be present. The bony thorax is unremarkable. IMPRESSION: No acute alveolar infiltrates Mild interstitial lung changes Suspect small left pleural effusion Reported By:
[2018-04-08] MEDS: LASIX PO SCH (08:55)
[2018-04-08] MEDS: LOVAZA PO SCH (08:55)
[2018-04-08] MEDS: ASPIRIN EC 81 MG PO SCH (08:55)
[2018-04-08] MEDS: MICRO K EXTEN CAP 10 MEQ PO SCH (08:56)
[2018-04-08] MEDS: LOVENOX INJ 40 MG SYR SC SCH (08:56)
[2018-04-08] MEDS: PROTONIX INJ 40 MG VIAL IVP SCH (08:56)
[2018-04-08] MEDS: PREDNISONE TAB 5 MG PO SCH (08:56)
[2018-04-08] MEDS: PEPCID 20 MG IV PREMIX* 20 MG/50 ML BAG IV SCH (08:56)
[2018-04-08] MEDS: VITAMIN C PO SCH (08:57)
[2018-04-08] MEDS: TAB-A-VITE PO SCH (08:57)
[2018-04-08] MEDS: ZESTRIL TAB 5 MG PO SCH (08:57)
[2018-04-08] MEDS: SYNTHROID 50 mcg TAB PO SCH (08:57)
[2018-04-08] MEDS: DUONEB 0.5 MG/3 MG NEB SCH ×4 (09:00→20:20)
[2018-04-08] MEDS: ZOSYN VIAL 2.25 GRAMS 2.25 G in NS 100 ML IV + SPIKE MINIBAG* 100 ML IV SCH ×2 (13:16→21:56)
[2018-04-08] MEDS ORDERED: VANCOMYCIN HCL 1 GM VIAL 1 G in D5W 250 ML IV 250 ML IV SCH (21:00)
[2018-04-08] MEDS: LIPITOR TAB 10 MG PO SCH (21:56)
[2018-04-08] MEDS: KLONOPIN TAB 1 MG PO PRN (21:59)
[2018-04-09 05:22] LABS: BASOPHILS # (AUTO) 0.1 X10^3/uL (0.0-0.1); BASOPHILS % (AUTO) 0.9 % (0.2-1.0); EOSINOPHILS # (AUTO) 0.2 x10^3/uL (0.0-0.2); EOSINOPHILS % (AUTO) 2.7 % (0.9-2.9); HEMATOCRIT 32.9 % (36.0-47.0); HEMOGLOBIN 11.2 g/dL (12.0-16.0); LYMPHOCYTES # (AUTO) 1.4 X10^3/uL (1.3-2.9); LYMPHOCYTES % (AUTO) 19.4 % (21.0-51.0); MEAN CORPUSCULAR VOLUME 97.2 fL (80.0-100.0); MEAN PLATELET VOLUME 8.3 fL (7.4-11.0); MONOCYTES # (AUTO) 0.6 x10^3/uL (0.3-0.8); MONOCYTES % (AUTO) 8.6 % (0.0-13.0); NEUTROPHILS # (AUTO) 4.8 x10^3/uL (2.2-4.8); NEUTROPHILS % (AUTO) 68.4 % (42.0-75.0); PLATELET COUNT 250 X10^3/uL (150.0-450.0); RED BLOOD COUNT 3.39 X10^6/uL (3.5-5.4); RED CELL DISTRIBUTION WIDTH 13.7 % (11.6-16.5); WHITE BLOOD COUNT 7.1 X10^3/uL (3.6-10.0)
[2018-04-09] MEDS: SODIUM CHLORIDE OP SCH ×2 (05:26→15:08)
[2018-04-09] MEDS: [UNRECOGNIZED DRUG - OTHER] OP SCH ×2 (05:26→15:08)
[2018-04-09] MEDS: PEG PROPYLENE GLYCOL OP SCH ×2 (05:26→15:08)
[2018-04-09] MEDS: NS + KCL 20 MEQ/L 1,000 ML IV SCH ×2 (05:26→15:09)
[2018-04-09] MEDS: ZOSYN VIAL 2.25 GRAMS 2.25 G in NS 100 ML IV + SPIKE MINIBAG* 100 ML IV SCH ×2 (05:26→14:20)
[2018-04-09 05:33] LABS: ALANINE AMINOTRANSFERASE 25 Units/L (12-78); ALBUMIN 2.4 g/dL (3.4-5.0); ALKALINE PHOSPHATASE 83 Units/L (46-116); ASPARTATE AMINO TRANSFERASE 19 Units/L (15-37); BLOOD UREA NITROGEN 16 mg/dL (7-18); CALCIUM 8.4 mg/dL (8.5-10.1); CARBON DIOXIDE 29.5 mmol/L (21-32); CHLORIDE 107 mmol/L (98-107); COR CA(FOR HYPOALB) 9.7 mg/dL (8.5-10.1); CREATININE 1.28 mg/dL (0.55-1.02); SODIUM 144 mmol/L (136-145); TOTAL PROTEIN 6.4 g/dL (6.4-8.2); eGFR NON BLACK RACES 42 (>60)
--- NOTE | 2018-04-09 08:04 | DR.PROGNOT ---
Hospital Progress Notes - Progress Note for Day of: Progress Note Date: 04/09/18 - Chief Complaint Chief Complaint: Rt leg wound were cleaned and debrided at bedside with Betidine brush . the skin is very friable and thin .. redressed with clean dressing and Hardy.. - Past Medical Family Social History Past Med/Fam/Surg Hx: No changes since H&P Allergies: Allergies cephalexin Allergy (Verified 07/24/17 08:20) clarithromycin [From Biaxin] Allergy (Verified 07/24/17 08:20) - Review Of Systems ROS: No change since H&P - Vital Signs Vital Signs: Temperature 98.5 F Pulse Rate [Left] 68 Pulse Rate 73 Respiratory Rate 22 Blood Pressure [Left Arm] 153/71 Blood Pressure [Right Arm] 137/61 Blood Pressure 138/64 O2 Sat by Pulse Oximetry 97 - Physical Exam Oriented: Normal Eyes: Normal Ear: Normal Nose: Normal Throat: Normal Respiratory: Diminished Cardiovascular: Normal, Edema : Normal GI:Auscultation: Normal GI:Palpation: Normal GI: Tenderness: Normal Skin: Wound (2 x 2 cm open wound , superfacial with mild erythema .) Musculoskeletal: Right, Leg Psychiatric: Anxiety Affect: Anxious Speech Pattern: Clear, Appropriate - Laboratory and Diagnostics Result Diagrams: 04/09/18 04:30 04/09/18 04:30 Labs: 04/03/18 14:59 Blood Blood Culture - Final 04/03/18 14:57 Blood Blood Culture - Final 04/03/18 17:00 Leg - Right Gram Stain - Final 04/03/18 17:00 Leg - Right Wound Culture - Final 04/03/18 19:03 Sputum - Expectorated Sputum Sputum Culture - Final 04/03/18 19:03 Sputum - Expectorated Sputum - Final Laboratory WBC 7.1 X10^3/uL (3.6-10.0) 04/09/18 04:30 RBC 3.39 X10^6/uL (3.5-5.4) L 04/09/18 04:30 Hgb 11.2 g/dL (12.0-16.0) L 04/09/18 04:30 Hct 32.9 % (36.0-47.0) L 04/09/18 04:30 MCV 97.2 fL (80.0-100.0) 04/09/18 04:30 MCH 33.0 pg (27.0-34.0) 04/09/18 04:30 MCHC 34.0 g/dL (33.0-35.0) 04/09/18 04:30 RDW 13.7 % (11.6-16.5) 04/09/18 04:30 Plt Count 250 X10^3/uL (150.0-450.0) 04/09/18 04:30 Plt Count Comment Adequate (ADEQUATE) 04/03/18 10:15 MPV 8.3 fL (7.4-11.0) 04/09/18 04:30 Neut % (Auto) 68.4 % (42.0-75.0) 04/09/18 04:30 Lymph % (Auto) 19.4 % (21.0-51.0) L 04/09/18 04:30 [place] % (Auto) 8.6 % (0.0-13.0) 04/09/18 04:30 Eos % (Auto) 2.7 % (0.9-2.9) 04/09/18 04:30 Baso % (Auto) 0.9 % (0.2-1.0) 04/09/18 04:30 Neut # (Auto) 4.8 x10^3/uL (2.2-4.8) 04/09/18 04:30 Lymph # (Auto) 1.4 X10^3/uL (1.3-2.9) 04/09/18 04:30 [place] # (Auto) 0.6 x10^3/uL (0.3-0.8) 04/09/18 04:30 Eos # (Auto) 0.2 x10^3/uL (0.0-0.2) 04/09/18 04:30 Baso # (Auto) 0.1 X10^3/uL (0.0-0.1) 04/09/18 04:30 Absolute Nucleated RBC 0.0 /100WBC 04/09/18 04:30 Total Counted 100 04/03/18 10:15 Neutrophils % (Manual) 87 % (39-76) H 04/03/18 10:15 Band Neutrophils % 3 % (0-10) 04/03/18 10:15 Lymphocytes % (Manual) 8 % (13-43) L 04/03/18 10:15 Monocytes % (Manual) 2 % (4-9) L 04/03/18 10:15 Plt Morphology Comment Normal (NORMAL) 04/03/18 10:15 RBC Morphology Normal (NORMAL) 04/03/18 10:15 ESR 22 MM/HOUR (0-20) H 04/03/18 17:36 Sodium 144 mmol/L (136-145) 04/09/18 04:30 Corrected Sodium TNP 04/09/18 04:30 Potassium 3.6 mmol/L (3.5-5.1) 04/09/18 04:30 Chloride 107 mmol/L (98-107) 04/09/18 04:30 Carbon Dioxide 29.5 mmol/L (21-32) 04/09/18 04:30 BUN 16 mg/dL (7-18) 04/09/18 04:30 Creatinine 1.28 mg/dL (0.55-1.02) H 04/09/18 04:30 Est GFR (MDRD) Af Amer 51 (>60) L 04/09/18 04:30 Est GFR (MDRD) Non-Af 42 (>60) L 04/09/18 04:30 Glucose 97 mg/dL (65-99) 04/09/18 04:30 Lactic Acid 1.4 mmol/L (0.4-2.0) 04/04/18 12:42 Calcium 8.4 mg/dL (8.5-10.1) L 04/09/18 04:30 Corrected Calcium 9.7 mg/dL (8.5-10.1) 04/09/18 04:30 Magnesium 2.2 mg/dL (1.7-2.9) 04/05/18 05:45 Total Bilirubin 0.30 mg/dL (0.2-1.0) 04/09/18 04:30 AST 19 Units/L (15-37) 04/09/18 04:30 ALT 25 Units/L (12-78) 04/09/18 04:30 Alkaline Phosphatase 83 Units/L (46-116) 04/09/18 04:30 C-Reactive Protein 54.90 mg/L (0-3.0) H 04/03/18 17:36 Total Protein 6.4 g/dL (6.4-8.2) 04/09/18 04:30 Albumin 2.4 g/dL (3.4-5.0) L 04/09/18 04:30 Globulin 4.0 g/dL (2.5-4.5) 04/09/18 04:30 Albumin/Globulin Ratio 0.6 Ratio (1.1-2.1) L 04/09/18 04:30 Amylase 194 Units/L (25-115) H 04/04/18 05:00 Lipase 104 Units/L (73-393) 04/04/18 05:00 Specimen Type Catherized urine 04/03/18 14:10 Urine Color Yellow (YELLOW) 04/03/18 14:10 Urine Appearance Clear (CLEAR) 04/03/18 14:10 Urine pH 8.0 (5.0 - 8.0) 04/03/18 14:10 Ur Specific [place] 1.015 (1.000-1.030) 04/03/18 14:10 Urine Protein Negative (NEGATIVE) 04/03/18 14:10 Urine Glucose (UA) Negative (NEGATIVE) 04/03/18 14:10 Urine Ketones Negative (NEGATIVE) 04/03/18 14:10 Urine Occult Blood Negative (NEGATIVE) 04/03/18 14:10 Urine Nitrite Negative (NEGATIVE) 04/03/18 14:10 Urine Bilirubin Negative (NEGATIVE) 04/03/18 14:10 Urine Urobilinogen Normal (NORMAL) 04/03/18 14:10 Ur Leukocyte Esterase Negative (NEGATIVE) 04/03/18 14:10 Vancomycin Trough 30.2 ug/mL (15-20) H* 04/07/18 21:17 Random Vancomycin 24.3 ug/mL 04/08/18 07:53 Influenza Type A (PCR) Negative (NEGATIVE) 04/03/18 17:34 Influenza Type B (PCR) Negative (NEGATIVE) 04/03/18 17:34 - Assessment and Plan 1: chronic calculus cholecystitis . GERD with h/o esophageal stricture . same IVF , Protonix and advance diet 2: Rt leg laceration and open ulcer with moderate cellulitis . local care ,ATB , leg elevation.. - Problem Patient Problems: Patient Problems Abdominal pain (Acute) R10.9 Decreased nausea and vomiting (Acute) R11.2 Cellulitis (Acute) L03.90 Cellulitis of leg, right (Acute) L03.115 Leg wound, right (Acute) S81.801A Pneumonia (Acute) J18.9 Dysphagia (Acute) R13.10 Cough (Acute) R05
[2018-04-09] MEDS: DUONEB 0.5 MG/3 MG NEB SCH ×2 (08:22→13:31)
[2018-04-09] MEDS ORDERED: PEPCID 20 MG IV PREMIX* 20 MG/50 ML BAG IV SCH (09:00)
[2018-04-09] MEDS: LOVENOX INJ 40 MG SYR SC SCH (09:48)
[2018-04-09] MEDS: ZESTRIL TAB 5 MG PO SCH (09:50)
[2018-04-09] MEDS: LOVAZA PO SCH (09:50)
[2018-04-09] MEDS: VITAMIN C PO SCH (09:50)
[2018-04-09] MEDS: PROTONIX INJ 40 MG VIAL IVP SCH (09:50)
[2018-04-09] MEDS: MICRO K EXTEN CAP 10 MEQ PO SCH (09:51)
[2018-04-09] MEDS: PREDNISONE TAB 5 MG PO SCH (09:51)
[2018-04-09] MEDS: LASIX PO SCH (09:51)
[2018-04-09] MEDS: ASPIRIN EC 81 MG PO SCH (09:51)
[2018-04-09] MEDS: TAB-A-VITE PO SCH (09:52)
[2018-04-09] MEDS: SYNTHROID 50 mcg TAB PO SCH (09:52)
--- NOTE | 2018-04-09 13:22 | PCM.PROG ---
Progress Note - Progress Note for Day of Date of Exam: 04/08/18 - Subjective Subjective: 87 WF ER ADMISSION AFTER PRESENTING WITH CO N/V AND RLE CELLULITIS. PT FAILED OUTPT TREATMENT FOR RLE CELLULITIS. PT CURRENTLY ON IV VANCOMYCIN AND ZOSYN. ALSO TREATED FOR PNEUMONIA POSSIBLE DUE TO ASPIRATION. PT HAS BEEN EVALUATED BY SPEECH AND HAS ADVANCED DIET. PT CONTINUES WITH DIFFUSE WEAKNESS, DICUSSED WITH FAMILY REHAB, SWING BED. - Past Medical Family Social History Past Med/Fam/Surg Hx: No changes since H&P Allergies: Allergies cephalexin Allergy (Verified 07/24/17 08:20) clarithromycin [From Biaxin] Allergy (Verified 07/24/17 08:20) - Review of Systems ROS: No change since H&P - Vital Signs and I&O's Vital Signs: Temperature 98.5 F Pulse Rate [Left] 73 Pulse Rate 67 Respiratory Rate 20 Blood Pressure [Left Arm] 151/68 Blood Pressure [Right Arm] 137/61 Blood Pressure 138/64 O2 Sat by Pulse Oximetry 94 Intake and Output: Intake & Output 04/07/18 04/08/18 04/09/18 04/10/18 11:59 11:59 11:59 11:59 Intake Total 1366 / 1366 1010 / 1010 Output Total 750 / 750 2925 / 2925 Balance 616 / 616 -1915 / -1915 - Physical Exam Oriented: Normal Eyes: Normal Ear: Normal Nose: Normal Throat: Normal Respiratory: Diminished Cardiovascular: Normal, Edema : Normal Auscultation: Bowel Sounds: Normal Tenderness: Normal Skin: Wound (2 x 2 cm open wound , superfacial with mild erythema .) Musculoskeletal: Right, Leg Psychiatric: Anxiety Affect: Anxious Speech Pattern: Clear, Appropriate - Laboratory and Diagnostics Result Diagrams: 04/09/18 04:30 04/09/18 04:30 Labs: 04/03/18 14:59 Blood Blood Culture - Final 04/03/18 14:57 Blood Blood Culture - Final 04/03/18 17:00 Leg - Right Gram Stain - Final 04/03/18 17:00 Leg - Right Wound Culture - Final 04/03/18 19:03 Sputum - Expectorated Sputum Sputum Culture - Final 04/03/18 19:03 Sputum - Expectorated Sputum - Final Laboratory WBC 7.1 X10^3/uL (3.6-10.0) 04/09/18 04:30 RBC 3.39 X10^6/uL (3.5-5.4) L 04/09/18 04:30 Hgb 11.2 g/dL (12.0-16.0) L 04/09/18 04:30 Hct 32.9 % (36.0-47.0) L 04/09/18 04:30 MCV 97.2 fL (80.0-100.0) 04/09/18 04:30 MCH 33.0 pg (27.0-34.0) 04/09/18 04:30 MCHC 34.0 g/dL (33.0-35.0) 04/09/18 04:30 RDW 13.7 % (11.6-16.5) 04/09/18 04:30 Plt Count 250 X10^3/uL (150.0-450.0) 04/09/18 04:30 Plt Count Comment Adequate (ADEQUATE) 04/03/18 10:15 MPV 8.3 fL (7.4-11.0) 04/09/18 04:30 Neut % (Auto) 68.4 % (42.0-75.0) 04/09/18 04:30 Lymph % (Auto) 19.4 % (21.0-51.0) L 04/09/18 04:30 [place] % (Auto) 8.6 % (0.0-13.0) 04/09/18 04:30 Eos % (Auto) 2.7 % (0.9-2.9) 04/09/18 04:30 Baso % (Auto) 0.9 % (0.2-1.0) 04/09/18 04:30 Neut # (Auto) 4.8 x10^3/uL (2.2-4.8) 04/09/18 04:30 Lymph # (Auto) 1.4 X10^3/uL (1.3-2.9) 04/09/18 04:30 [place] # (Auto) 0.6 x10^3/uL (0.3-0.8) 04/09/18 04:30 Eos # (Auto) 0.2 x10^3/uL (0.0-0.2) 04/09/18 04:30 Baso # (Auto) 0.1 X10^3/uL (0.0-0.1) 04/09/18 04:30 Absolute Nucleated RBC 0.0 /100WBC 04/09/18 04:30 Total Counted 100 04/03/18 10:15 Neutrophils % (Manual) 87 % (39-76) H 04/03/18 10:15 Band Neutrophils % 3 % (0-10) 04/03/18 10:15 Lymphocytes % (Manual) 8 % (13-43) L 04/03/18 10:15 Monocytes % (Manual) 2 % (4-9) L 04/03/18 10:15 Plt Morphology Comment Normal (NORMAL) 04/03/18 10:15 RBC Morphology Normal (NORMAL) 04/03/18 10:15 ESR 22 MM/HOUR (0-20) H 04/03/18 17:36 Sodium 144 mmol/L (136-145) 04/09/18 04:30 Corrected Sodium TNP 04/09/18 04:30 Potassium 3.6 mmol/L (3.5-5.1) 04/09/18 04:30 Chloride 107 mmol/L (98-107) 04/09/18 04:30 Carbon Dioxide 29.5 mmol/L (21-32) 04/09/18 04:30 BUN 16 mg/dL (7-18) 04/09/18 04:30 Creatinine 1.28 mg/dL (0.55-1.02) H 04/09/18 04:30 Est GFR (MDRD) Af Amer 51 (>60) L 04/09/18 04:30 Est GFR (MDRD) Non-Af 42 (>60) L 04/09/18 04:30 Glucose 97 mg/dL (65-99) 04/09/18 04:30 Lactic Acid 1.4 mmol/L (0.4-2.0) 04/04/18 12:42 Calcium 8.4 mg/dL (8.5-10.1) L 04/09/18 04:30 Corrected Calcium 9.7 mg/dL (8.5-10.1) 04/09/18 04:30 Magnesium 2.2 mg/dL (1.7-2.9) 04/05/18 05:45 Total Bilirubin 0.30 mg/dL (0.2-1.0) 04/09/18 04:30 AST 19 Units/L (15-37) 04/09/18 04:30 ALT 25 Units/L (12-78) 04/09/18 04:30 Alkaline Phosphatase 83 Units/L (46-116) 04/09/18 04:30 C-Reactive Protein 54.90 mg/L (0-3.0) H 04/03/18 17:36 Total Protein 6.4 g/dL (6.4-8.2) 04/09/18 04:30 Albumin 2.4 g/dL (3.4-5.0) L 04/09/18 04:30 Globulin 4.0 g/dL (2.5-4.5) 04/09/18 04:30 Albumin/Globulin Ratio 0.6 Ratio (1.1-2.1) L 04/09/18 04:30 Amylase 194 Units/L (25-115) H 04/04/18 05:00 Lipase 104 Units/L (73-393) 04/04/18 05:00 Specimen Type Catherized urine 04/03/18 14:10 Urine Color Yellow (YELLOW) 04/03/18 14:10 Urine Appearance Clear (CLEAR) 04/03/18 14:10 Urine pH 8.0 (5.0 - 8.0) 04/03/18 14:10 Ur Specific [place] 1.015 (1.000-1.030) 04/03/18 14:10 Urine Protein Negative (NEGATIVE) 04/03/18 14:10 Urine Glucose (UA) Negative (NEGATIVE) 04/03/18 14:10 Urine Ketones Negative (NEGATIVE) 04/03/18 14:10 Urine Occult Blood Negative (NEGATIVE) 04/03/18 14:10 Urine Nitrite Negative (NEGATIVE) 04/03/18 14:10 Urine Bilirubin Negative (NEGATIVE) 04/03/18 14:10 Urine Urobilinogen Normal (NORMAL) 04/03/18 14:10 Ur Leukocyte Esterase Negative (NEGATIVE) 04/03/18 14:10 Vancomycin Trough 30.2 ug/mL (15-20) H* 04/07/18 21:17 Random Vancomycin 24.3 ug/mL 04/08/18 07:53 Influenza Type A (PCR) Negative (NEGATIVE) 04/03/18 17:34 Influenza Type B (PCR) Negative (NEGATIVE) 04/03/18 17:34 - Plan (1) Cellulitis of leg, right Status: Acute Plan: WOUND AND BLOOD CULTURES. IV ATBX, VERIFY AND RESUME HOME MEDICATION. S PUTUM CULTURE, RESP CONSULT. BP CONTROL, PAIN CONTROL. FEVER MONITORING (2) Leg wound, right Status: Acute (3) Pneumonia Status: Acute Plan: IV ATBX, RESP THERAPY, AM LABS. SUPPLEMENTAL O2 PRN. POSSIBLE ASPIRATION, SPEECH CONSULTED (4) Dysphagia Status: Acute Plan: ESOPHAGEAL DIALATION IN FEB [address] VENEGAS. SPEECH CONSULT (5) Cough Status: Acute Plan: PRESENT WITH EATING OR DRINKING
--- NOTE | 2018-04-09 13:32 | PCM.PROG ---
Progress Note - Progress Note for Day of Date of Exam: 04/09/18 - Subjective Subjective: 87 WF ER ADMISSION AFTER PRESENTING WITH CO N/V AND RLE CELLULITIS. PT FAILED OUTPT TREATMENT FOR RLE CELLULITIS. PT CURRENTLY ON IV VANCOMYCIN AND ZOSYN. ALSO TREATED FOR PNEUMONIA POSSIBLE DUE TO ASPIRATION. PT HAS BEEN EVALUATED BY SPEECH AND HAS ADVANCED DIET. PT DENIES ANY COUGH OR SOB, "BREAHTING IS FINE". PT CONTINUES WITH DIFFUSE WEAKNESS, DICUSSED WITH FAMILY REHAB, SWING BED. - Past Medical Family Social History Past Med/Fam/Surg Hx: No changes since H&P Allergies: Allergies cephalexin Allergy (Verified 07/24/17 08:20) clarithromycin [From Biaxin] Allergy (Verified 07/24/17 08:20) - Review of Systems ROS: No change since H&P - Vital Signs and I&O's Vital Signs: Temperature 98.5 F Pulse Rate [Left] 73 Pulse Rate 67 Respiratory Rate 20 Blood Pressure [Left Arm] 151/68 Blood Pressure [Right Arm] 137/61 Blood Pressure 138/64 O2 Sat by Pulse Oximetry 94 Intake and Output: Intake & Output 04/07/18 04/08/18 04/09/18 04/10/18 11:59 11:59 11:59 11:59 Intake Total 1366 / 1366 1010 / 1010 Output Total 750 / 750 2925 / 2925 Balance 616 / 616 -1915 / -1915 - Physical Exam Oriented: Normal Eyes: Normal Ear: Normal Nose: Normal Throat: Normal Respiratory: Diminished Cardiovascular: Normal, Edema : Normal Auscultation: Bowel Sounds: Normal Tenderness: Normal Skin: Wound (2 x 2 cm open wound , superfacial with mild erythema .) Musculoskeletal: Right, Leg Psychiatric: Anxiety Affect: Anxious Speech Pattern: Clear, Appropriate - Laboratory and Diagnostics Result Diagrams: 04/09/18 04:30 04/09/18 04:30 Labs: 04/03/18 14:59 Blood Blood Culture - Final 04/03/18 14:57 Blood Blood Culture - Final 04/03/18 17:00 Leg - Right Gram Stain - Final 04/03/18 17:00 Leg - Right Wound Culture - Final 04/03/18 19:03 Sputum - Expectorated Sputum Sputum Culture - Final 04/03/18 19:03 Sputum - Expectorated Sputum - Final Laboratory WBC 7.1 X10^3/uL (3.6-10.0) 04/09/18 04:30 RBC 3.39 X10^6/uL (3.5-5.4) L 04/09/18 04:30 Hgb 11.2 g/dL (12.0-16.0) L 04/09/18 04:30 Hct 32.9 % (36.0-47.0) L 04/09/18 04:30 MCV 97.2 fL (80.0-100.0) 04/09/18 04:30 MCH 33.0 pg (27.0-34.0) 04/09/18 04:30 MCHC 34.0 g/dL (33.0-35.0) 04/09/18 04:30 RDW 13.7 % (11.6-16.5) 04/09/18 04:30 Plt Count 250 X10^3/uL (150.0-450.0) 04/09/18 04:30 Plt Count Comment Adequate (ADEQUATE) 04/03/18 10:15 MPV 8.3 fL (7.4-11.0) 04/09/18 04:30 Neut % (Auto) 68.4 % (42.0-75.0) 04/09/18 04:30 Lymph % (Auto) 19.4 % (21.0-51.0) L 04/09/18 04:30 [place] % (Auto) 8.6 % (0.0-13.0) 04/09/18 04:30 Eos % (Auto) 2.7 % (0.9-2.9) 04/09/18 04:30 Baso % (Auto) 0.9 % (0.2-1.0) 04/09/18 04:30 Neut # (Auto) 4.8 x10^3/uL (2.2-4.8) 04/09/18 04:30 Lymph # (Auto) 1.4 X10^3/uL (1.3-2.9) 04/09/18 04:30 [place] # (Auto) 0.6 x10^3/uL (0.3-0.8) 04/09/18 04:30 Eos # (Auto) 0.2 x10^3/uL (0.0-0.2) 04/09/18 04:30 Baso # (Auto) 0.1 X10^3/uL (0.0-0.1) 04/09/18 04:30 Absolute Nucleated RBC 0.0 /100WBC 04/09/18 04:30 Total Counted 100 04/03/18 10:15 Neutrophils % (Manual) 87 % (39-76) H 04/03/18 10:15 Band Neutrophils % 3 % (0-10) 04/03/18 10:15 Lymphocytes % (Manual) 8 % (13-43) L 04/03/18 10:15 Monocytes % (Manual) 2 % (4-9) L 04/03/18 10:15 Plt Morphology Comment Normal (NORMAL) 04/03/18 10:15 RBC Morphology Normal (NORMAL) 04/03/18 10:15 ESR 22 MM/HOUR (0-20) H 04/03/18 17:36 Sodium 144 mmol/L (136-145) 04/09/18 04:30 Corrected Sodium TNP 04/09/18 04:30 Potassium 3.6 mmol/L (3.5-5.1) 04/09/18 04:30 Chloride 107 mmol/L (98-107) 04/09/18 04:30 Carbon Dioxide 29.5 mmol/L (21-32) 04/09/18 04:30 BUN 16 mg/dL (7-18) 04/09/18 04:30 Creatinine 1.28 mg/dL (0.55-1.02) H 04/09/18 04:30 Est GFR (MDRD) Af Amer 51 (>60) L 04/09/18 04:30 Est GFR (MDRD) Non-Af 42 (>60) L 04/09/18 04:30 Glucose 97 mg/dL (65-99) 04/09/18 04:30 Lactic Acid 1.4 mmol/L (0.4-2.0) 04/04/18 12:42 Calcium 8.4 mg/dL (8.5-10.1) L 04/09/18 04:30 Corrected Calcium 9.7 mg/dL (8.5-10.1) 04/09/18 04:30 Magnesium 2.2 mg/dL (1.7-2.9) 04/05/18 05:45 Total Bilirubin 0.30 mg/dL (0.2-1.0) 04/09/18 04:30 AST 19 Units/L (15-37) 04/09/18 04:30 ALT 25 Units/L (12-78) 04/09/18 04:30 Alkaline Phosphatase 83 Units/L (46-116) 04/09/18 04:30 C-Reactive Protein 54.90 mg/L (0-3.0) H 04/03/18 17:36 Total Protein 6.4 g/dL (6.4-8.2) 04/09/18 04:30 Albumin 2.4 g/dL (3.4-5.0) L 04/09/18 04:30 Globulin 4.0 g/dL (2.5-4.5) 04/09/18 04:30 Albumin/Globulin Ratio 0.6 Ratio (1.1-2.1) L 04/09/18 04:30 Amylase 194 Units/L (25-115) H 04/04/18 05:00 Lipase 104 Units/L (73-393) 04/04/18 05:00 Specimen Type Catherized urine 04/03/18 14:10 Urine Color Yellow (YELLOW) 04/03/18 14:10 Urine Appearance Clear (CLEAR) 04/03/18 14:10 Urine pH 8.0 (5.0 - 8.0) 04/03/18 14:10 Ur Specific [place] 1.015 (1.000-1.030) 04/03/18 14:10 Urine Protein Negative (NEGATIVE) 04/03/18 14:10 Urine Glucose (UA) Negative (NEGATIVE) 04/03/18 14:10 Urine Ketones Negative (NEGATIVE) 04/03/18 14:10 Urine Occult Blood Negative (NEGATIVE) 04/03/18 14:10 Urine Nitrite Negative (NEGATIVE) 04/03/18 14:10 Urine Bilirubin Negative (NEGATIVE) 04/03/18 14:10 Urine Urobilinogen Normal (NORMAL) 04/03/18 14:10 Ur Leukocyte Esterase Negative (NEGATIVE) 04/03/18 14:10 Vancomycin Trough 30.2 ug/mL (15-20) H* 04/07/18 21:17 Random Vancomycin 24.3 ug/mL 04/08/18 07:53 Influenza Type A (PCR) Negative (NEGATIVE) 04/03/18 17:34 Influenza Type B (PCR) Negative (NEGATIVE) 04/03/18 17:34 - Plan (1) Cellulitis of leg, right Status: Acute Plan: WOUND AND BLOOD CULTURES. IV ATBX, WOUND CARE. DR FLYNN CONSULTING (2) Leg wound, right Status: Acute (3) Pneumonia Status: Acute Plan: IMPROVING. IV ATBX, RESP THERAPY, AM LABS. SUPPLEMENTAL O2 PRN. POSS IBLE ASPIRATION, SPEECH CONSULTED (4) Dysphagia Status: Acute Plan: ESOPHAGEAL DIALATION IN FEB [address] VENEGAS. SPEECH CONSULT (5) Cough Status: Acute Plan: PRESENT WITH EATING OR DRINKING
[2018-04-09 15:04] VITALS: BP 126/60
[2018-04-11] MEDS ORDERED: PATIENT'S HOME MEDICATION IV ONE (20:30)
[2018-04-16] MEDS ORDERED: CONSULT PHARMACY - ANTIBIOTIC XX SCH (14:00)
[2018-04-16] MEDS ORDERED: DUONEB 0.5 MG/3 MG ONE (16:43)
--- NOTE | 2018-05-05 15:30 | PCM.DCPLAN ---
Discharge Summary - Admission Date Date of Admission: 04/03/18 - Discharge Date Discharge Date: 04/09/18 - Admission Diagnoses (1) Cellulitis of leg, right Status: Acute (2) Cough Status: Acute (3) Dysphagia Status: Acute (4) Generalized weakness Status: Acute (5) Pneumonia Status: Acute - Discharge Diagnoses Discharge Diagnosis: SAME ADMISSION DIAGNOSIS - Discharge Medications Discharge Medications: Prescriptions: - Hospital Course Vital Signs: Temperature 98.7 F Pulse Rate [Left] 74 Pulse Rate 67 Respiratory Rate 20 Blood Pressure [Left Arm] 126/60 Blood Pressure [Right Arm] 137/61 Blood Pressure 138/64 O2 Sat by Pulse Oximetry 96 Latest Lab Results: Laboratory Last Values WBC 7.1 X10^3/uL (3.6-10.0) 04/09/18 04:30 RBC 3.39 X10^6/uL (3.5-5.4) L 04/09/18 04:30 Hgb 11.2 g/dL (12.0-16.0) L 04/09/18 04:30 Hct 32.9 % (36.0-47.0) L 04/09/18 04:30 MCV 97.2 fL (80.0-100.0) 04/09/18 04:30 MCH 33.0 pg (27.0-34.0) 04/09/18 04:30 MCHC 34.0 g/dL (33.0-35.0) 04/09/18 04:30 RDW 13.7 % (11.6-16.5) 04/09/18 04:30 Plt Count 250 X10^3/uL (150.0-450.0) 04/09/18 04:30 Plt Count Comment Adequate (ADEQUATE) 04/03/18 10:15 MPV 8.3 fL (7.4-11.0) 04/09/18 04:30 Neut % (Auto) 68.4 % (42.0-75.0) 04/09/18 04:30 Lymph % (Auto) 19.4 % (21.0-51.0) L 04/09/18 04:30 [place] % (Auto) 8.6 % (0.0-13.0) 04/09/18 04:30 Eos % (Auto) 2.7 % (0.9-2.9) 04/09/18 04:30 Baso % (Auto) 0.9 % (0.2-1.0) 04/09/18 04:30 Neut # (Auto) 4.8 x10^3/uL (2.2-4.8) 04/09/18 04:30 Lymph # (Auto) 1.4 X10^3/uL (1.3-2.9) 04/09/18 04:30 [place] # (Auto) 0.6 x10^3/uL (0.3-0.8) 04/09/18 04:30 Eos # (Auto) 0.2 x10^3/uL (0.0-0.2) 04/09/18 04:30 Baso # (Auto) 0.1 X10^3/uL (0.0-0.1) 04/09/18 04:30 Absolute Nucleated RBC 0.0 /100WBC 04/09/18 04:30 Total Counted 100 04/03/18 10:15 Neutrophils % (Manual) 87 % (39-76) H 04/03/18 10:15 Band Neutrophils % 3 % (0-10) 04/03/18 10:15 Lymphocytes % (Manual) 8 % (13-43) L 04/03/18 10:15 Monocytes % (Manual) 2 % (4-9) L 04/03/18 10:15 Plt Morphology Comment Normal (NORMAL) 04/03/18 10:15 RBC Morphology Normal (NORMAL) 04/03/18 10:15 ESR 22 MM/HOUR (0-20) H 04/03/18 17:36 Sodium 144 mmol/L (136-145) 04/09/18 04:30 Corrected Sodium TNP 04/09/18 04:30 Potassium 3.6 mmol/L (3.5-5.1) 04/09/18 04:30 Chloride 107 mmol/L (98-107) 04/09/18 04:30 Carbon Dioxide 29.5 mmol/L (21-32) 04/09/18 04:30 BUN 16 mg/dL (7-18) 04/09/18 04:30 Creatinine 1.28 mg/dL (0.55-1.02) H 04/09/18 04:30 Est GFR (MDRD) Af Amer 51 (>60) L 04/09/18 04:30 Est GFR (MDRD) Non-Af 42 (>60) L 04/09/18 04:30 Glucose 97 mg/dL (65-99) 04/09/18 04:30 Lactic Acid 1.4 mmol/L (0.4-2.0) 04/04/18 12:42 Calcium 8.4 mg/dL (8.5-10.1) L 04/09/18 04:30 Corrected Calcium 9.7 mg/dL (8.5-10.1) 04/09/18 04:30 Magnesium 2.2 mg/dL (1.7-2.9) 04/05/18 05:45 Total Bilirubin 0.30 mg/dL (0.2-1.0) 04/09/18 04:30 AST 19 Units/L (15-37) 04/09/18 04:30 ALT 25 Units/L (12-78) 04/09/18 04:30 Alkaline Phosphatase 83 Units/L (46-116) 04/09/18 04:30 C-Reactive Protein 54.90 mg/L (0-3.0) H 04/03/18 17:36 Total Protein 6.4 g/dL (6.4-8.2) 04/09/18 04:30 Albumin 2.4 g/dL (3.4-5.0) L 04/09/18 04:30 Globulin 4.0 g/dL (2.5-4.5) 04/09/18 04:30 Albumin/Globulin Ratio 0.6 Ratio (1.1-2.1) L 04/09/18 04:30 Amylase 194 Units/L (25-115) H 04/04/18 05:00 Lipase 104 Units/L (73-393) 04/04/18 05:00 Specimen Type Catherized urine 04/03/18 14:10 Urine Color Yellow (YELLOW) 04/03/18 14:10 Urine Appearance Clear (CLEAR) 04/03/18 14:10 Urine pH 8.0 (5.0 - 8.0) 04/03/18 14:10 Ur Specific [place] 1.015 (1.000-1.030) 04/03/18 14:10 Urine Protein Negative (NEGATIVE) 04/03/18 14:10 Urine Glucose (UA) Negative (NEGATIVE) 04/03/18 14:10 Urine Ketones Negative (NEGATIVE) 04/03/18 14:10 Urine Occult Blood Negative (NEGATIVE) 04/03/18 14:10 Urine Nitrite Negative (NEGATIVE) 04/03/18 14:10 Urine Bilirubin Negative (NEGATIVE) 04/03/18 14:10 Urine Urobilinogen Normal (NORMAL) 04/03/18 14:10 Ur Leukocyte Esterase Negative (NEGATIVE) 04/03/18 14:10 Vancomycin Trough 30.2 ug/mL (15-20) H* 04/07/18 21:17 Random Vancomycin 24.3 ug/mL 04/08/18 07:53 Influenza Type A (PCR) Negative (NEGATIVE) 04/03/18 17:34 Influenza Type B (PCR) Negative (NEGATIVE) 04/03/18 17:34 Hospital Course: 87 WF ER ADMISSION AFTER PRESENTING WITH CO N/V AND RLE CELLULITIS. PT FAILED OUTPT TREATMENT FOR RLE CELLULITIS. PT CURRENTLY ON IV VANCOMYCIN AND ZOSYN. ALSO TREATED FOR PNEUMONIA POSSIBLE DUE TO ASPIRATION. PT HAS BEEN EVALUATED BY SPEECH AND HAS ADVANCED DIET. PT DENIES ANY COUGH OR SOB, "BREATHING IS FINE". PT CONTINUES WITH DIFFUSE WEAKNESS, DISCUSSED WITH [facility], SWING BED. PATIENT DISCHARGED TO SWING BED FOR CONTINUED CARE. - Discharge Plan Disposition: 61 XFER/DISC TO [facility] Condition: Stable - Follow ups/Referrals Follow ups/Referrals: ARNULFO CATHERINE [Primary Care Provider] - 3 days - Instructions
== END 2018-04-09 15:59 | disposition swing bed (61) | DRG 602 ==
LOC: ER 09:34 → MED/SURG 09:34 → OBSVTOIN 15:23 → MED/SURG 16:11
PROVIDERS: ADMIT Internal Medicine; ATTEND Internal Medicine
DX: R10.84 Generalized abdominal pain; F41.8 Other specified anxiety disorders; I10 Essential (primary) hypertension; R11.2 Nausea with vomiting, unspecified; E03.8 Other specified hypothyroidism; R26.89 Other abnormalities of gait and mobility; E87.6 Hypokalemia; R79.82 Elevated C-reactive protein (CRP); R13.11 Dysphagia, oral phase; K21.9 Gastro-esophageal reflux disease without esophagitis; K80.12 Calculus of gallbladder with acute and chronic cholecystitis without obstruction; W18.39XA Other fall on same level, initial encounter; R60.0 Localized edema; S81.811A Laceration without foreign body, right lower leg, initial encounter; J69.0 Pneumonitis due to inhalation of food and vomit; R94.31 Abnormal electrocardiogram [ECG] [EKG]; R70.0 Elevated erythrocyte sedimentation rate; L03.115 Cellulitis of right lower limb; E86.0 Dehydration
CPT/HCPCS: 36415; 51702; 71010; 71045; 71250; 73590; 74176; 80053; 80202; 81003; 82150; 82565; 83605; 83690; 83735; 85025; 85652; 86140; 87040; 87070; 87075; 87205; 87502; 92526; 92610; 93005; 93010; 94640; 94669; 94760; 96365; 96367; 96374; 96375; 97110; 97116; 97162; 97166; 97530; 97535; 99231; 99284; A4222; C9113; S0028; J1650; J1940; J2405; J2543; J3370; J3475; J3490; J7030; J7050; J7060; J7512; J7620

== ENCOUNTER 2018-04-09 16:00 | Inpatient (IN) ==
[2018-04-09] MEDS ORDERED: TYLENOL 500 MG TAB EXTRA STRENGTH PO PRN (16:45)
[2018-04-09] MEDS ORDERED: SENOKOT PO PRN (16:45)
[2018-04-09] MEDS ORDERED: CHRONULAC PO PRN (16:45)
[2018-04-09] MEDS ORDERED: COLACE CAP 100 MG PO PRN (16:45)
[2018-04-09] MEDS ORDERED: ZOFRAN INJ 4 MG VIAL IVP PRN (16:45)
[2018-04-09] MEDS ORDERED: TYLENOL SUPP 650 MG PR PRN (16:45)
[2018-04-09] MEDS ORDERED: DUONEB 0.5 MG/3 MG NEB SCH (17:00)
[2018-04-09] MEDS: PEG PROPYLENE GLYCOL OP SCH (21:52)
[2018-04-09] MEDS: SODIUM CHLORIDE OP SCH (21:52)
[2018-04-09] MEDS: VANCOMYCIN HCL 1 GM VIAL 1 G in D5W 250 ML IV 250 ML IV SCH (21:52)
[2018-04-09] MEDS: LIPITOR TAB 10 MG PO SCH (21:52)
[2018-04-09] MEDS: ZOSYN VIAL 2.25 GRAMS 2.25 G in NS 100 ML IV + SPIKE MINIBAG* 100 ML IV SCH (21:52)
[2018-04-09] MEDS: [UNRECOGNIZED DRUG - OTHER] OP SCH (21:52)
[2018-04-09] MEDS: KLONOPIN TAB 1 MG PO PRN (21:54)
[2018-04-10] MEDS: SODIUM CHLORIDE OP SCH ×3 (05:47→21:12)
[2018-04-10] MEDS: PEG PROPYLENE GLYCOL OP SCH ×3 (05:47→21:11)
[2018-04-10] MEDS: [UNRECOGNIZED DRUG - OTHER] OP SCH ×3 (05:47→21:12)
[2018-04-10] MEDS: ZOSYN VIAL 2.25 GRAMS 2.25 G in NS 100 ML IV + SPIKE MINIBAG* 100 ML IV SCH ×3 (05:48→21:14)
[2018-04-10 08:06] VITALS: BMI 30.9
[2018-04-10] MEDS: PEPCID 20 MG IV PREMIX* 20 MG/50 ML BAG IV SCH (10:56)
[2018-04-10] MEDS: LOVENOX INJ 40 MG SYR SC SCH (10:57)
[2018-04-10] MEDS: PROTONIX INJ 40 MG VIAL IVP SCH (10:57)
[2018-04-10] MEDS: LOVAZA PO SCH (10:58)
[2018-04-10] MEDS: LASIX PO SCH (10:58)
[2018-04-10] MEDS: TAB-A-VITE PO SCH (10:58)
[2018-04-10] MEDS: PREDNISONE TAB 5 MG PO SCH (10:58)
[2018-04-10] MEDS: MICRO K EXTEN CAP 10 MEQ PO SCH (10:58)
[2018-04-10] MEDS: VITAMIN C PO SCH (10:58)
[2018-04-10] MEDS: SYNTHROID 50 mcg TAB PO SCH (10:59)
[2018-04-10] MEDS: ZESTRIL TAB 5 MG PO SCH (10:59)
[2018-04-10] MEDS: ASPIRIN EC 81 MG PO SCH (10:59)
[2018-04-10] MEDS ORDERED: NS 250 ML IV 250 ML IV ONE (14:34)
--- NOTE | 2018-04-10 18:03 | DR.UPDATE ---
H&P Update History and Physical Update: History and Physical reviewed and patient examined. H&P ON 04/03/2018 Yes with the following: IMPROVED RLE CELLULITIS, MILD LOCALIZED REDNESS WITH HEALED SF WOUNDS
[2018-04-10] MEDS: LIPITOR TAB 10 MG PO SCH (20:40)
[2018-04-10] MEDS: VANCOMYCIN HCL 1 GM VIAL 1 G in D5W 250 ML IV 250 ML IV SCH (20:41)
[2018-04-10] MEDS: KLONOPIN TAB 1 MG PO PRN (23:04)
[2018-04-11] MEDS: SODIUM CHLORIDE OP SCH ×3 (05:05→21:14)
[2018-04-11] MEDS: [UNRECOGNIZED DRUG - OTHER] OP SCH ×3 (05:05→21:14)
[2018-04-11] MEDS: ZOSYN VIAL 2.25 GRAMS 2.25 G in NS 100 ML IV + SPIKE MINIBAG* 100 ML IV SCH ×3 (05:05→21:15)
[2018-04-11] MEDS: PEG PROPYLENE GLYCOL OP SCH ×3 (05:05→21:14)
[2018-04-11] MEDS: NS 250 ML IV 250 ML IV PRN (05:06)
[2018-04-11] MEDS: SYNTHROID 50 mcg TAB PO SCH (08:54)
[2018-04-11] MEDS: ZESTRIL TAB 5 MG PO SCH (08:54)
[2018-04-11] MEDS: PEPCID 20 MG IV PREMIX* 20 MG/50 ML BAG IV SCH (08:54)
[2018-04-11] MEDS: TAB-A-VITE PO SCH (08:54)
[2018-04-11] MEDS: PROTONIX INJ 40 MG VIAL IVP SCH (08:54)
[2018-04-11] MEDS: LOVAZA PO SCH (08:55)
[2018-04-11] MEDS: VITAMIN C PO SCH (08:55)
[2018-04-11] MEDS: LASIX PO SCH (08:55)
[2018-04-11] MEDS: PREDNISONE TAB 5 MG PO SCH (08:55)
[2018-04-11] MEDS: ASPIRIN EC 81 MG PO SCH (08:55)
[2018-04-11] MEDS: MICRO K EXTEN CAP 10 MEQ PO SCH (08:56)
[2018-04-11] MEDS: LOVENOX INJ 40 MG SYR SC SCH (09:00)
[2018-04-11] MEDS ORDERED: BUTT CREAM (COMPOUND) TOP PRN (20:33)
[2018-04-11] MEDS: LIPITOR TAB 10 MG PO SCH (21:13)
[2018-04-11] MEDS: KLONOPIN TAB 1 MG PO PRN (21:14)
[2018-04-11 21:26] LABS: CREATININE 1.51 mg/dL (0.55-1.02)
[2018-04-11] MEDS: VANCOMYCIN HCL 1 GM VIAL 1 G in D5W 250 ML IV 250 ML IV SCH (22:20)
[2018-04-12] MEDS: SODIUM CHLORIDE OP SCH ×3 (05:06→21:15)
[2018-04-12] MEDS: ZOSYN VIAL 2.25 GRAMS 2.25 G in NS 100 ML IV + SPIKE MINIBAG* 100 ML IV SCH ×3 (05:06→22:35)
[2018-04-12] MEDS: PEG PROPYLENE GLYCOL OP SCH ×3 (05:06→21:13)
[2018-04-12] MEDS: [UNRECOGNIZED DRUG - OTHER] OP SCH ×3 (05:06→21:15)
[2018-04-12 05:20] LABS: BASOPHILS # (AUTO) 0.1 X10^3/uL (0.0-0.1); BASOPHILS % (AUTO) 1.4 % (0.2-1.0); EOSINOPHILS # (AUTO) 0.2 x10^3/uL (0.0-0.2); EOSINOPHILS % (AUTO) 2.8 % (0.9-2.9); HEMOGLOBIN 11.4 g/dL (12.0-16.0); LYMPHOCYTES # (AUTO) 1.2 X10^3/uL (1.3-2.9); LYMPHOCYTES % (AUTO) 19.7 % (21.0-51.0); MEAN CORPUSCULAR HEMOGLOBIN 33.3 pg (27.0-34.0); MEAN CORPUSCULAR HGB CONC 34.4 g/dL (33.0-35.0); MEAN CORPUSCULAR VOLUME 96.9 fL (80.0-100.0); MEAN PLATELET VOLUME 8.1 fL (7.4-11.0); MONOCYTES # (AUTO) 0.5 x10^3/uL (0.3-0.8); MONOCYTES % (AUTO) 8.8 % (0.0-13.0); NEUTROPHILS % (AUTO) 67.3 % (42.0-75.0); PLATELET COUNT 320 X10^3/uL (150.0-450.0); RED BLOOD COUNT 3.41 X10^6/uL (3.5-5.4); RED CELL DISTRIBUTION WIDTH 13.8 % (11.6-16.5)
[2018-04-12 05:32] LABS: ALANINE AMINOTRANSFERASE 28 Units/L (12-78); ALBUMIN 2.4 g/dL (3.4-5.0); ALKALINE PHOSPHATASE 84 Units/L (46-116); ASPARTATE AMINO TRANSFERASE 25 Units/L (15-37); BLOOD UREA NITROGEN 19 mg/dL (7-18); CALCIUM 8.1 mg/dL (8.5-10.1); CARBON DIOXIDE 29.4 mmol/L (21-32); CHLORIDE 104 mmol/L (98-107); COR CA(FOR HYPOALB) 9.4 mg/dL (8.5-10.1); CREATININE 1.31 mg/dL (0.55-1.02); SODIUM 141 mmol/L (136-145); TOTAL PROTEIN 6.4 g/dL (6.4-8.2); eGFR NON BLACK RACES 41 (>60)
[2018-04-12] MEDS ORDERED: K-RIDER 10 MEQ/NS 100 ML 10 MEQ/100 ML BAG IV PRN (05:58)
[2018-04-12] MEDS ORDERED: MICRO K EXTEN CAP 10 MEQ PO PRN (05:58)
[2018-04-12] MEDS ORDERED: MAGNESIUM SULFATE 1 GRAM/100 mL PREMIX 1 GM/100 ML BAG IV PRN (05:58)
[2018-04-12] MEDS ORDERED: POTASSIUM CHL 40 MEQ/NS 0.45% 500 ML IV PRN (05:58)
[2018-04-12] MEDS ORDERED: POTASSIUM CHLORIDE LIQ 20 MEQ UDC PO PRN (05:58)
[2018-04-12] MEDS ORDERED: POTASSIUM CHL 60 MEQ/NS 0.45% 500 ML IV PRN (05:58)
[2018-04-12] MEDS ORDERED: KLOR-CON PO PRN (05:58)
[2018-04-12] MEDS: K-DUR TAB 20 MEQ PO PRN ×2 (06:38→06:43)
[2018-04-12] MEDS: LOVAZA PO SCH (10:01)
[2018-04-12] MEDS: ASPIRIN EC 81 MG PO SCH (10:01)
[2018-04-12] MEDS: MICRO K EXTEN CAP 10 MEQ PO SCH (10:01)
[2018-04-12] MEDS: TAB-A-VITE PO SCH (10:01)
[2018-04-12] MEDS: PREDNISONE TAB 5 MG PO SCH (10:01)
[2018-04-12] MEDS: VITAMIN C PO SCH (10:02)
[2018-04-12] MEDS: ZESTRIL TAB 5 MG PO SCH (10:02)
[2018-04-12] MEDS: LASIX PO SCH (10:02)
[2018-04-12] MEDS: LOVENOX INJ 40 MG SYR SC SCH (10:02)
[2018-04-12] MEDS: SYNTHROID 50 mcg TAB PO SCH (10:15)
--- NOTE | 2018-04-12 12:12 | PCM.PROG ---
Progress Note - Progress Note for Day of Date of Exam: 04/10/18 - Subjective Subjective: 87 WF ADMITTED FOR SWINGBED STATUS ON SUNDAY FOR REHAB THERAPY DUE TO ACUTE WEAKNESS. PT HAS RLE CELLULITIS, IMPROVED SINCE ADMISSION AND IMPROVED PNEUMONIA. WILL CONTINUE CURRENTLY MEDICATION REGIMEN AND ROUTINE LABS. PHYSICAL THERAPY. - Past Medical Family Social History Past Med/Fam/Surg Hx: No changes since H&P Allergies: Allergies cephalexin Allergy (Verified 07/24/17 08:20) clarithromycin [From Biaxin] Allergy (Verified 07/24/17 08:20) - Review of Systems ROS: No change since H&P - Vital Signs and I&O's Vital Signs: Temperature 98 F Pulse Rate [Radial] 66 Respiratory Rate 20 Blood Pressure [Left Arm] 157/69 Blood Pressure [Right Arm] 137/61 Blood Pressure 126/60 O2 Sat by Pulse Oximetry 94 Intake and Output: Intake & Output 04/10/18 04/11/18 04/12/18 04/13/18 11:59 11:59 11:59 11:59 Intake Total 315 / 315 875 / 875 940 / 940 Balance 315 / 315 875 / 875 940 / 940 - Physical Exam Oriented: Normal Eyes: Normal Ear: Normal Nose: Normal Respiratory: Diminished Cardiovascular: Normal Auscultation: Bowel Sounds: Normal Palpation: Normal Tenderness: Normal Skin: Wound Musculoskeletal: Motor Deficit, Instability, Crepitance Psychiatric: Anxiety Affect: Anxious Speech Pattern: Clear, Appropriate - Laboratory and Diagnostics Result Diagrams: 04/12/18 04:10 04/12/18 04:10 Labs: Laboratory WBC 6.0 X10^3/uL (3.6-10.0) 04/12/18 04:10 RBC 3.41 X10^6/uL (3.5-5.4) L 04/12/18 04:10 Hgb 11.4 g/dL (12.0-16.0) L 04/12/18 04:10 Hct 33.0 % (36.0-47.0) L 04/12/18 04:10 MCV 96.9 fL (80.0-100.0) 04/12/18 04:10 MCH 33.3 pg (27.0-34.0) 04/12/18 04:10 MCHC 34.4 g/dL (33.0-35.0) 04/12/18 04:10 RDW 13.8 % (11.6-16.5) 04/12/18 04:10 Plt Count 320 X10^3/uL (150.0-450.0) 04/12/18 04:10 MPV 8.1 fL (7.4-11.0) 04/12/18 04:10 Neut % (Auto) 67.3 % (42.0-75.0) 04/12/18 04:10 Lymph % (Auto) 19.7 % (21.0-51.0) L 04/12/18 04:10 [place] % (Auto) 8.8 % (0.0-13.0) 04/12/18 04:10 Eos % (Auto) 2.8 % (0.9-2.9) 04/12/18 04:10 Baso % (Auto) 1.4 % (0.2-1.0) H 04/12/18 04:10 Neut # (Auto) 4.0 x10^3/uL (2.2-4.8) 04/12/18 04:10 Lymph # (Auto) 1.2 X10^3/uL (1.3-2.9) L 04/12/18 04:10 [place] # (Auto) 0.5 x10^3/uL (0.3-0.8) 04/12/18 04:10 Eos # (Auto) 0.2 x10^3/uL (0.0-0.2) 04/12/18 04:10 Baso # (Auto) 0.1 X10^3/uL (0.0-0.1) 04/12/18 04:10 Absolute Nucleated RBC 0.0 /100WBC 04/12/18 04:10 Sodium 141 mmol/L (136-145) 04/12/18 04:10 Corrected Sodium TNP 04/12/18 04:10 Potassium 3.1 mmol/L (3.5-5.1) L 04/12/18 04:10 Chloride 104 mmol/L (98-107) 04/12/18 04:10 Carbon Dioxide 29.4 mmol/L (21-32) 04/12/18 04:10 BUN 19 mg/dL (7-18) H 04/12/18 04:10 Creatinine 1.31 mg/dL (0.55-1.02) H 04/12/18 04:10 Est GFR (MDRD) Af Amer 50 (>60) L 04/12/18 04:10 Est GFR (MDRD) Non-Af 41 (>60) L 04/12/18 04:10 Glucose 104 mg/dL (65-99) H 04/12/18 04:10 Calcium 8.1 mg/dL (8.5-10.1) L 04/12/18 04:10 Corrected Calcium 9.4 mg/dL (8.5-10.1) 04/12/18 04:10 Magnesium 1.9 mg/dL (1.7-2.9) 04/12/18 04:10 Total Bilirubin 0.30 mg/dL (0.2-1.0) 04/12/18 04:10 AST 25 Units/L (15-37) 04/12/18 04:10 ALT 28 Units/L (12-78) 04/12/18 04:10 Alkaline Phosphatase 84 Units/L (46-116) 04/12/18 04:10 Total Protein 6.4 g/dL (6.4-8.2) 04/12/18 04:10 Albumin 2.4 g/dL (3.4-5.0) L 04/12/18 04:10 Globulin 4.0 g/dL (2.5-4.5) 04/12/18 04:10 Albumin/Globulin Ratio 0.6 Ratio (1.1-2.1) L 04/12/18 04:10 Vancomycin Trough 19.0 ug/mL (15-20) 04/11/18 20:45 - Plan (1) Weakness Status: Acute Plan: ROUTINE LABS, BP CONTROL. RESP THERAPY, PHYSICAL THERAPY. CONTINUE CURRENT MEDICATION REGIMEN (2) Cellulitis of leg, right Status: Acute (3) Pneumonia Status: Acute
[2018-04-12] MEDS: PEPCID 20 MG IV PREMIX* 20 MG/50 ML BAG IV SCH (14:16)
[2018-04-12] MEDS: PROTONIX INJ 40 MG VIAL IVP SCH (14:16)
--- NOTE | 2018-04-12 16:12 | RAD ---
HISTORY: 87-year-old female with pneumonia. Study: Frontal view of the chest. Comparison: Chest radiograph 04/08/2018 Findings: The trachea is midline. The cardiac silhouette is stably enlarged with hyper expansion of the lungs and prominent interstitium and perihilar lung markings with left basilar consolidation and small effusion. No pneumothorax, lung apices are excluded. Soft tissues are unremarkable. Osseous structures are unremarkable. IMPRESSION: 1. Small volume consolidation left lung base with small effusion likely energy conservation representative of pneumonia, correlate clinically and follow-up to resolution. Reported By:
[2018-04-12] MEDS: VANCOMYCIN HCL 1 GM VIAL 1 G in D5W 250 ML IV 250 ML IV SCH (21:14)
[2018-04-12] MEDS: LIPITOR TAB 10 MG PO SCH (21:15)
[2018-04-13] MEDS: ZOSYN VIAL 2.25 GRAMS 2.25 G in NS 100 ML IV + SPIKE MINIBAG* 100 ML IV SCH ×3 (05:18→21:29)
[2018-04-13] MEDS: PEG PROPYLENE GLYCOL OP SCH ×3 (05:18→21:29)
[2018-04-13] MEDS: [UNRECOGNIZED DRUG - OTHER] OP SCH ×3 (05:19→21:29)
[2018-04-13] MEDS: SODIUM CHLORIDE OP SCH ×3 (05:19→21:29)
[2018-04-13] MEDS: LOVENOX INJ 40 MG SYR SC SCH (09:08)
[2018-04-13] MEDS: LASIX PO SCH (09:08)
[2018-04-13] MEDS: ASPIRIN EC 81 MG PO SCH (09:08)
[2018-04-13] MEDS: LOVAZA PO SCH (09:08)
[2018-04-13] MEDS: ZESTRIL TAB 5 MG PO SCH (09:10)
[2018-04-13] MEDS: VITAMIN C PO SCH (09:10)
[2018-04-13] MEDS: PEPCID 20 MG IV PREMIX* 20 MG/50 ML BAG IV SCH (09:10)
[2018-04-13] MEDS: MICRO K EXTEN CAP 10 MEQ PO SCH (09:10)
[2018-04-13] MEDS: PROTONIX INJ 40 MG VIAL IVP SCH (09:10)
[2018-04-13] MEDS: PREDNISONE TAB 5 MG PO SCH (09:10)
[2018-04-13] MEDS: TAB-A-VITE PO SCH (09:10)
[2018-04-13] MEDS: SYNTHROID 50 mcg TAB PO SCH (09:10)
--- NOTE | 2018-04-13 19:57 | PCM.PROG ---
Progress Note Progress Note for Day of Date of Exam: 04/13/18 Subjective Subjective: 87 WF ADMITTED FOR SWINGBED STATUS ON SUNDAY FOR REHAB THERAPY DUE TO ACUTE WEAKNESS. PT HAS RLE CELLULITIS, IMPROVED SINCE ADMISSION AND IMPROVED PNEUMONIA. WILL CONTINUE CURRENTLY MEDICATION REGIMEN AND ROUTINE LABS. PHYSICAL THERAPY. Past Medical Family Social History Past Med/Fam/Surg Hx: No changes since H&P Allergies: Allergies cephalexin Allergy (Verified 07/24/17 08:20) clarithromycin [From Biaxin] Allergy (Verified 07/24/17 08:20) Review of Systems ROS: No change since H&P Vital Signs and I&O's Vital Signs: Temperature 98 F Pulse Rate [Radial] 69 Respiratory Rate 18 Blood Pressure [Left Arm] 128/66 Blood Pressure [Right Arm] 137/61 Blood Pressure 126/60 O2 Sat by Pulse Oximetry 96 Intake and Output: Intake & Output 04/10/18 04/11/18 04/12/18 04/13/18 23:59 23:59 23:59 23:59 Intake Total 715 / 715 635 / 635 1856 / 1856 533 / 533 Balance 715 / 715 635 / 635 1856 / 1856 533 / 533 Physical Exam Oriented: Normal Eyes: Normal Ear: Normal Nose: Normal Respiratory: Diminished Cardiovascular: Normal Auscultation: Bowel Sounds: Normal Tenderness: Normal Skin: Wound Musculoskeletal: Motor Deficit, Instability and Crepitance Psychiatric: Anxiety Affect: Anxious Speech Pattern: Clear and Appropriate Laboratory and Diagnostics Result Diagrams: 04/12/18 04:10 04/12/18 15:34 Labs: Laboratory WBC 6.0 X10^3/uL (3.6-10.0) 04/12/18 04:10 RBC 3.41 X10^6/uL (3.5-5.4) L 04/12/18 04:10 Hgb 11.4 g/dL (12.0-16.0) L 04/12/18 04:10 Hct 33.0 % (36.0-47.0) L 04/12/18 04:10 MCV 96.9 fL (80.0-100.0) 04/12/18 04:10 MCH 33.3 pg (27.0-34.0) 04/12/18 04:10 MCHC 34.4 g/dL (33.0-35.0) 04/12/18 04:10 RDW 13.8 % (11.6-16.5) 04/12/18 04:10 Plt Count 320 X10^3/uL (150.0-450.0) 04/12/18 04:10 MPV 8.1 fL (7.4-11.0) 04/12/18 04:10 Neut % (Auto) 67.3 % (42.0-75.0) 04/12/18 04:10 Lymph % (Auto) 19.7 % (21.0-51.0) L 04/12/18 04:10 [place] % (Auto) 8.8 % (0.0-13.0) 04/12/18 04:10 Eos % (Auto) 2.8 % (0.9-2.9) 04/12/18 04:10 Baso % (Auto) 1.4 % (0.2-1.0) H 04/12/18 04:10 Neut # (Auto) 4.0 x10^3/uL (2.2-4.8) 04/12/18 04:10 Lymph # (Auto) 1.2 X10^3/uL (1.3-2.9) L 04/12/18 04:10 [place] # (Auto) 0.5 x10^3/uL (0.3-0.8) 04/12/18 04:10 Eos # (Auto) 0.2 x10^3/uL (0.0-0.2) 04/12/18 04:10 Baso # (Auto) 0.1 X10^3/uL (0.0-0.1) 04/12/18 04:10 Absolute Nucleated RBC 0.0 /100WBC 04/12/18 04:10 Sodium 141 mmol/L (136-145) 04/12/18 04:10 Corrected Sodium TNP 04/12/18 04:10 Potassium 3.7 mmol/L (3.5-5.1) 04/12/18 15:34 Chloride 104 mmol/L (98-107) 04/12/18 04:10 Carbon Dioxide 29.4 mmol/L (21-32) 04/12/18 04:10 BUN 19 mg/dL (7-18) H 04/12/18 04:10 Creatinine 1.31 mg/dL (0.55-1.02) H 04/12/18 04:10 Est GFR (MDRD) Af Amer 50 (>60) L 04/12/18 04:10 Est GFR (MDRD) Non-Af 41 (>60) L 04/12/18 04:10 Glucose 104 mg/dL (65-99) H 04/12/18 04:10 Calcium 8.1 mg/dL (8.5-10.1) L 04/12/18 04:10 Corrected Calcium 9.4 mg/dL (8.5-10.1) 04/12/18 04:10 Magnesium 1.9 mg/dL (1.7-2.9) 04/12/18 04:10 Total Bilirubin 0.30 mg/dL (0.2-1.0) 04/12/18 04:10 AST 25 Units/L (15-37) 04/12/18 04:10 ALT 28 Units/L (12-78) 04/12/18 04:10 Alkaline Phosphatase 84 Units/L (46-116) 04/12/18 04:10 Total Protein 6.4 g/dL (6.4-8.2) 04/12/18 04:10 Albumin 2.4 g/dL (3.4-5.0) L 04/12/18 04:10 Globulin 4.0 g/dL (2.5-4.5) 04/12/18 04:10 Albumin/Globulin Ratio 0.6 Ratio (1.1-2.1) L 04/12/18 04:10 Vancomycin Trough 19.0 ug/mL (15-20) 04/11/18 20:45 Plan (1) Weakness: Status: Acute Plan: ROUTINE LABS, BP CONTROL RESP THERAPY, PHYSICAL THERAPY CONTINUE CURRENT MEDICATION REGIMEN (2) Cellulitis of leg, right: Status: Acute (3) Pneumonia: Status: Acute Qualifiers: Aspiration pneumonia type: Laterality: Lung location: Pneumonia type:
[2018-04-13] MEDS: KLONOPIN TAB 1 MG PO PRN (20:19)
[2018-04-13] MEDS: LIPITOR TAB 10 MG PO SCH (20:19)
[2018-04-13] MEDS: VANCOMYCIN HCL 1 GM VIAL 1 G in D5W 250 ML IV 250 ML IV SCH (20:20)
[2018-04-13] MEDS: NS 250 ML IV 250 ML IV PRN (23:17)
[2018-04-14] MEDS: SODIUM CHLORIDE OP SCH (05:10)
[2018-04-14] MEDS: [UNRECOGNIZED DRUG - OTHER] OP SCH (05:10)
[2018-04-14] MEDS: ZOSYN VIAL 2.25 GRAMS 2.25 G in NS 100 ML IV + SPIKE MINIBAG* 100 ML IV SCH (05:10)
[2018-04-14] MEDS: PEG PROPYLENE GLYCOL OP SCH (05:10)
[2018-04-14 08:50] VITALS: BP 157/76
[2018-04-14] MEDS: LOVENOX INJ 40 MG SYR SC SCH (09:29)
[2018-04-14] MEDS: ASPIRIN EC 81 MG PO SCH (09:30)
[2018-04-14] MEDS: LASIX PO SCH (09:31)
[2018-04-14] MEDS: ZESTRIL TAB 5 MG PO SCH (09:31)
[2018-04-14] MEDS: PROTONIX INJ 40 MG VIAL IVP SCH (09:31)
[2018-04-14] MEDS: VITAMIN C PO SCH (09:31)
[2018-04-14] MEDS: TAB-A-VITE PO SCH (09:31)
[2018-04-14] MEDS: SYNTHROID 50 mcg TAB PO SCH (09:31)
[2018-04-14] MEDS: PREDNISONE TAB 5 MG PO SCH (09:31)
[2018-04-14] MEDS: PEPCID 20 MG IV PREMIX* 20 MG/50 ML BAG IV SCH (09:32)
[2018-04-14] MEDS: MICRO K EXTEN CAP 10 MEQ PO SCH (09:32)
[2018-04-14] MEDS: LOVAZA PO SCH (09:32)
== END 2018-04-14 11:55 | disposition home health service (06) | DRG 949 ==
LOC: MED/SURG 16:00
PROVIDERS: ADMIT Internal Medicine; ATTEND Internal Medicine
CPT/HCPCS: 36415; 71010; 71045; 80053; 80202; 82565; 83735; 84132; 85025; 92526; 92610; 97110; 97112; 97116; 97162; 97166; 97530; 97535; 99231; A4222; C9113; S0028; J1650; J2405; J2543; J3370; J7050; J7060; J7512

== ENCOUNTER 2018-04-15 11:35 | Inpatient (IN) ==
[2018-04-15 11:46] VITALS: BMI 18.6
[2018-04-15] MEDS ORDERED: NS 1000 ML 1,000 ML IV ONE (12:00)
[2018-04-15] MEDS ORDERED: NS 1000 ML 1,000 ML ONE ×2 (12:02→14:10)
--- NOTE | 2018-04-15 12:05 | ED.ABDFE ---
HPI Time Seen Time Seen by Provider: 04/15/18 11:46 PCP Primary Care Physician: ADAM SHETTY HPI Comment HPI Comment: DISCHARGE FROM SWING BED YESTERDAY. WEAKNESS AND NEAR SYNCOPAL EPISODE. FEEL ONCE AND HUTY LEFT KNEE. ABLE TO PUT WEIGHT ON THAT KNEE. NO FEVER. Complaint Doctors Chief Complaint Comments: DIARRHEA, WEAKNESS, NEAR SYNCOPE. Chief Complaint:: EMS OUT TO PT HAVING WEAKNESS PT JUST D'C FROM [facility] ON 04/14/18 AND PT STATES SHE IS WEAK AND THAT SHE HAS BEEN HAVING DIARREA SINCE SUNDAY WHEN SHE WAS RELEASED FROM THE HOSPITAL,BR Self Treatment fo Chief Complaint: PT IS ALERT AND ORIENTED AND SHE IS ABLE TO GIVE A GOOD HX Reviewed Nurses Notes Review: Yes Source History Provided: Patient and EMS Mode of arrival Mode of Arrival: EMS Timing Onset of Chief Complaint: 04/14/18 Came on: Suddenly Duration Since Onset: Constant Duration: Days (DIARRHEA FOR FEW DAYS.) Location Location: Diffuse Severity Severity: Moderate Quality Quality: Sharp Context History of: None Modifying factors Worsening Factors: Other Improving Factors: Nothing Associated signs and symptoms Associated Signs and Symptoms: Nausea PMH PMH Past Medical History: Yes Past Medical History: Anxiety, GERD and Hypothyroidism Past Surgical History: Yes Surgical History: Hysterectomy, Ortho Surgery and Other Family History History of Family Medical Conditions: Yes Family Medical History: Diabetes Mellitus, Cancer and [place] Social History Does patient currently use any type of tobacco product: No Have you used tobacco products in the last 12 months: No Type of Tobacco Use: None Does any household member use tobacco: No Alcohol Use: None Do you use any recreational Drugs:: No Lives With: Family Lives Where: Home infectious screening In the last 2 months have you had wt loss of >10#?: NO Have you had fever, night sweats or hemotysis?: No Have you traveled outside the country in the last 6 months?: No ROS Review of Systems Constitutional: Weakness and Fatigue; negative Chills and Fever Eyes: No Symptoms Reported ENTM: No Symptoms Reported Respiratoy: No Symptoms Reported Cardiovascular: No Symptoms Reported Gastrointestinal/Abdominal: Abdominal Pain and Diarrhea Neurological: Weakness Musculoskeletal: Muscle Pain Integumentary: Dryness Hematologic/Lymphatic: Easy Bleeding and Easy Bruising Endocrine: No Symptoms Reported Psychiatric: No Symptoms Reported All Other Systems: Reviewed and Negative PE Vital Signs Vitals: Temperature 98.2 F Pulse Rate [Right Radial] 69 Pulse Rate 72 Respiratory Rate 18 Blood Pressure [Left Arm] 125/58 Blood Pressure [Right Arm] 137/61 Blood Pressure 151/67 O2 Sat by Pulse Oximetry 96 General Limitations: Altered Mental Status General Appearance: Alert and In No Apparent Distress Head Head Exam: Normal Inspection and Atraumatic Eyes Eye exam: PERRL and EOMI; negative Scleral Icterus and Conjunctival Injection ENT ENT Exam: Normal Oropharynx, Normal External Ear Exam and TM's Normal Bilaterally Neck Neck Exam: Normal Inspection and Trachea Midline Respiratory Respiratory Exam: Normal Lung Sounds Bilat Respiratory Exam: Bilateral: Rhonchi and Lower: Rhonchi Cardiovascular Cardiovascular Exam: Regular Rate and Normal Rhythm Abdominal Exam Abdominal Exam: Normal Bowel Sounds, Soft and Tenderness Abdominal Tenderness: Diffuse and Moderate Rectal Rectal Exam: Deferred Back Back Exam: Normal Inspection Extremeties Extremities Exam: Tenderness (ABRSION LEFT KNEE. NII.) External Exam: Female: Deferred : Speculum Exam (Female): Deferred : Bimanual Exam (female): Deferred Neurologic Neurological Exam: Alert and Other (ORIENTED TO PERSON AND PLACE.); negative Motor Sensory Deficit Psychiatric Psychiatric Exam: Normal Affect and Normal Mood Skin Skin Exam: Dry MDM Differential Diagnosis Differential Diagnosis- Considerations may include:: Bowel Obstruction, Constipation, Diverticular disease, Gastritus/PUD, Gastroenteritis, Pancreatitis, Urinary tract infection and Urolithiasis COURSE Treatment Treatment: SEE ORDERS. Consultation Consultation Comments: DISCUSS PATIENT WITH DR. VELAZQUEZ, HE WILL ADMIT PATIENT. Education/Counseling Education/Counseling: Patient and Family Educated On: Diagnosis ROR Labs Reviewed Laboratory Results Reviewed?: Yes Result Diagrams: 04/15/18 12:17 04/15/18 12:17 Laboratory: 04/15/18 13:57 Stool - Final WBC 13.5 X10^3/uL (3.6-10.0) H 04/15/18 12:17 RBC 3.47 X10^6/uL (3.5-5.4) L 04/15/18 12:17 Hgb 11.5 g/dL (12.0-16.0) L 04/15/18 12:17 Hct 34.1 % (36.0-47.0) L 04/15/18 12:17 MCV 98.2 fL (80.0-100.0) 04/15/18 12:17 MCH 33.1 pg (27.0-34.0) 04/15/18 12:17 MCHC 33.7 g/dL (33.0-35.0) 04/15/18 12:17 RDW 14.0 % (11.6-16.5) 04/15/18 12:17 Plt Count 278 X10^3/uL (150.0-450.0) 04/15/18 12:17 MPV 8.0 fL (7.4-11.0) 04/15/18 12:17 Neut % (Auto) 87.1 % (42.0-75.0) H 04/15/18 12:17 Lymph % (Auto) 6.1 % (21.0-51.0) L 04/15/18 12:17 [place] % (Auto) 5.4 % (0.0-13.0) 04/15/18 12:17 Eos % (Auto) 0.8 % (0.9-2.9) L 04/15/18 12:17 Baso % (Auto) 0.6 % (0.2-1.0) 04/15/18 12:17 Neut # (Auto) 11.8 x10^3/uL (2.2-4.8) H 04/15/18 12:17 Lymph # (Auto) 0.8 X10^3/uL (1.3-2.9) L 04/15/18 12:17 [place] # (Auto) 0.7 x10^3/uL (0.3-0.8) 04/15/18 12:17 Eos # (Auto) 0.1 x10^3/uL (0.0-0.2) 04/15/18 12:17 Baso # (Auto) 0.1 X10^3/uL (0.0-0.1) 04/15/18 12:17 Absolute Nucleated RBC 0.0 /100WBC 04/15/18 12:17 Sodium 140 mmol/L (136-145) 04/15/18 12:17 Corrected Sodium TNP 04/15/18 12:17 Potassium 3.2 mmol/L (3.5-5.1) L 04/15/18 12:17 Chloride 106 mmol/L (98-107) 04/15/18 12:17 Carbon Dioxide 26.3 mmol/L (21-32) 04/15/18 12:17 BUN 18 mg/dL (7-18) 04/15/18 12:17 Creatinine 1.06 mg/dL (0.55-1.02) H 04/15/18 12:17 Est GFR (MDRD) Af Amer > 60 (>60) 04/15/18 12:17 Est GFR (MDRD) Non-Af 52 (>60) L 04/15/18 12:17 Glucose 104 mg/dL (65-99) H 04/15/18 12:17 Calcium 8.4 mg/dL (8.5-10.1) L 04/15/18 12:17 Corrected Calcium 9.4 mg/dL (8.5-10.1) 04/15/18 12:17 Total Bilirubin 0.30 mg/dL (0.2-1.0) 04/15/18 12:17 AST 27 Units/L (15-37) 04/15/18 12:17 ALT 32 Units/L (12-78) 04/15/18 12:17 Alkaline Phosphatase 101 Units/L (46-116) 04/15/18 12:17 Creatine Kinase 47 Units/L (26-192) 04/15/18 12:17 CK-MB (CK-2) < 1.0 ng/mL (0-4.0) 04/15/18 12:17 CK/CKMB % Calc 2.1 % (<4) 04/15/18 12:17 Troponin I < 0.02 ng/mL (0-1.5) 04/15/18 12:17 Total Protein 6.8 g/dL (6.4-8.2) 04/15/18 12:17 Albumin 2.8 g/dL (3.4-5.0) L 04/15/18 12:17 Globulin 4.0 g/dL (2.5-4.5) 04/15/18 12:17 Albumin/Globulin Ratio 0.7 Ratio (1.1-2.1) L 04/15/18 12:17 Amylase 97 Units/L (25-115) 04/15/18 12:17 Lipase 304 Units/L (73-393) 04/15/18 12:17 Specimen Type Clean catch urine 04/15/18 13:57 Urine Color Yellow (YELLOW) 04/15/18 13:57 Urine Appearance Clear (CLEAR) 04/15/18 13:57 Urine pH 5.0 (5.0 - 8.0) 04/15/18 13:57 Ur Specific [place] 1.010 (1.000-1.030) 04/15/18 13:57 Urine Protein Negative (NEGATIVE) 04/15/18 13:57 Urine Glucose (UA) Negative (NEGATIVE) 04/15/18 13:57 Urine Ketones Negative (NEGATIVE) 04/15/18 13:57 Urine Occult Blood Negative (NEGATIVE) 04/15/18 13:57 Urine Nitrite Negative (NEGATIVE) 04/15/18 13:57 Urine Bilirubin Negative (NEGATIVE) 04/15/18 13:57 Urine Urobilinogen Normal (NORMAL) 04/15/18 13:57 Ur Leukocyte Esterase Negative (NEGATIVE) 04/15/18 13:57 Stool Description 20g unformed dark br 04/15/18 13:57 Stool for White Cells Negative (NEGATIVE) 04/15/18 13:57 Stl C. diff Tox B Gene Negative (NEGATIVE) 04/15/18 13:57 Stl C. diff [id number] Negative (NEGATIVE) 04/15/18 13:57 Cryptosporid parvum Ag Negative (NEGATIVE) 04/15/18 13:57 Giardia lamblia Ag Negative (NEGATIVE) 04/15/18 13:57 XRAY XRAY Interpreted by: Radiologist EKG Rate: 65 [place]: Normal Block: None Hypertrophy: LAE ST: Old and Ant Diagnosis Discharge Problem: Near syncope, Generalized weakness Diarrhea Qualifiers: Diarrhea type: unspecified type Qualified Code(s): R19.7 - Diarrhea, unspecifie d
[2018-04-15 12:28] LABS: BASOPHILS # (AUTO) 0.1 X10^3/uL (0.0-0.1); BASOPHILS % (AUTO) 0.6 % (0.2-1.0); EOSINOPHILS # (AUTO) 0.1 x10^3/uL (0.0-0.2); EOSINOPHILS % (AUTO) 0.8 % (0.9-2.9); HEMATOCRIT 34.1 % (36.0-47.0); HEMOGLOBIN 11.5 g/dL (12.0-16.0); LYMPHOCYTES # (AUTO) 0.8 X10^3/uL (1.3-2.9); LYMPHOCYTES % (AUTO) 6.1 % (21.0-51.0); MEAN CORPUSCULAR HEMOGLOBIN 33.1 pg (27.0-34.0); MEAN CORPUSCULAR HGB CONC 33.7 g/dL (33.0-35.0); MEAN CORPUSCULAR VOLUME 98.2 fL (80.0-100.0); MONOCYTES # (AUTO) 0.7 x10^3/uL (0.3-0.8); MONOCYTES % (AUTO) 5.4 % (0.0-13.0); NEUTROPHILS # (AUTO) 11.8 x10^3/uL (2.2-4.8); NEUTROPHILS % (AUTO) 87.1 % (42.0-75.0); PLATELET COUNT 278 X10^3/uL (150.0-450.0); RED BLOOD COUNT 3.47 X10^6/uL (3.5-5.4); WHITE BLOOD COUNT 13.5 X10^3/uL (3.6-10.0)
[2018-04-15 12:45] LABS: ALANINE AMINOTRANSFERASE 32 Units/L (12-78); ALBUMIN 2.8 g/dL (3.4-5.0); ALKALINE PHOSPHATASE 101 Units/L (46-116); AMYLASE 97 Units/L (25-115); ASPARTATE AMINO TRANSFERASE 27 Units/L (15-37); BLOOD UREA NITROGEN 18 mg/dL (7-18); CALCIUM 8.4 mg/dL (8.5-10.1); CARBON DIOXIDE 26.3 mmol/L (21-32); CHLORIDE 106 mmol/L (98-107); COR CA(FOR HYPOALB) 9.4 mg/dL (8.5-10.1); CREATININE 1.06 mg/dL (0.55-1.02); LIPASE 304 Units/L (73-393); SODIUM 140 mmol/L (136-145); TOTAL PROTEIN 6.8 g/dL (6.4-8.2); eGFR NON BLACK RACES 52 (>60)
--- NOTE | 2018-04-15 13:01 | CT ---
HISTORY: Weakness, diarrhea Study: CT abdomen and pelvis without contrast Comparison: 04/03/2018 Technique: Multiple axial images of the abdomen and pelvis were obtained without IV contrast. Dose reduction techniques including Automated Exposure Control (AEC) and adjustment of mA and kV were utilized. Findings: Please note evaluation is limited without use of IV contrast. Cardiomegaly and a small left-sided pleural effusion are noted. There are calcifications of mitral valve. The right lung is clear. The liver, spleen, pancreas, and adrenal glands are unremarkable in their unenhanced CT appearance. Cholelithiasis is noted. No renal calculi or obstructive uropathy identified. No free intraperitoneal air. No evidence of intestinal obstruction or inflammation. There is a moderate volume of retained stool in the colon. The appendix is not well visualized. No free fluid is seen. There are discogenic degenerative changes at L3-L4. Limited evaluation of vascular structures due to lack of contrast. No pathologically enlarged lymph nodes are identified. Normal urinary bladder. Uterus is removed. IMPRESSION: 1. Small left pleural effusion and cardiomegaly. 2. Cholelithiasis. 3. No acute abnormality identified within the abdomen or pelvis on noncontrast imaging. Reported By:
[2018-04-15 14:09] LABS: BILIRUBIN,URINE NEGATIVE (NEGATIVE); BLOOD/HEMOGLOBIN,URINE NEGATIVE (NEGATIVE); GLUCOSE, URINE NEGATIVE (NEGATIVE); KETONES,URINE NEGATIVE (NEGATIVE); LEUKOCYTE ESTERASE ,URINE NEGATIVE (NEGATIVE); NITRITES,URINE NEGATIVE (NEGATIVE); PROTEIN,URINE NEGATIVE (NEGATIVE); UROBILINOGEN,URINE NORMAL (NORMAL)
[2018-04-15 14:10] LABS: APPEARANCE,URINE CLEAR (CLEAR); COLOR,URINE YELLOW (YELLOW)
[2018-04-15] MEDS: NS 1000 ML 1,000 ML IV SCH (14:17)
[2018-04-15 14:43] LABS: STOOL FOR WBC NEGATIVE (NEGATIVE)
[2018-04-15 14:48] LABS: CRYPTOSPORIDIUM PARVUM ANTIGEN NEGATIVE (NEGATIVE); GIARDIA LAMBLIA ANTIGEN NEGATIVE (NEGATIVE)
--- NOTE | 2018-04-15 16:43 | CT ---
Examination: CT of the head. Clinical history: Confusion. Technique: Multiple axial images were obtained from the skull base to the vertex. Dose reduction techniques including automated exposure control (AEC) and adjustment of mA and kV were utilized. Comparison: 07/24/2017. Findings: Nonspecific periventricular white matter changes are noted, likely due to small vessel ischemic disease. There is no intra-, or extra-axial hemorrhage, acute infarct or mass lesion noted. There is prominence of the CSF spaces consistent with age related cerebral atrophy. The ventricles are symmetric about the midline, with no midline shift or mass effect noted. The posterior fossa, brain stem and orbital regions are within normal limits. Atherosclerotic calcifications are seen associated with the internal carotid arteries bilaterally and the vertebral arteries bilaterally. No bony or soft tissue abnormality is noted. Impression: 1. No acute infarct or hemorrhage. 2. Age-related cerebral atrophy. 3. Nonspecific periventricular white matter changes are noted, likely due to small vessel ischemic disease. Reported By:
[2018-04-15 16:44] LABS: CKMB % 2.1 % (<4); CREATINE KINASE 47 Units/L (26-192); CREATINE KINASE MB < 1.0 ng/mL (0-4.0); TROPONIN I < 0.02 ng/mL (0-1.5)
[2018-04-15] MEDS ORDERED: KLONOPIN TAB 0.5 MG PO PRN (17:48)
[2018-04-15] MEDS ORDERED: LASIX PO PRN (17:48)
[2018-04-15] MEDS ORDERED: NS + KCL 20 MEQ/L 1,000 ML IV SCH (18:00)
[2018-04-15] MEDS ORDERED: LIPITOR TAB 40 MG PO SCH (21:00)
[2018-04-15] MEDS: BACTRIM DS TAB PO SCH (21:08)
[2018-04-16] MEDS ORDERED: PHENERGAN INJ 25 MG IV PRN ×2 (00:02→13:35)
[2018-04-16 00:11] LABS: CREATINE KINASE 25 Units/L (26-192); CREATINE KINASE MB < 1.0 ng/mL (0-4.0); TROPONIN I < 0.02 ng/mL (0-1.5)
[2018-04-16] MEDS: TYLENOL 325 MG TAB PO PRN ×4 (04:19→23:49)
[2018-04-16 05:28] LABS: ALBUMIN 2.4 g/dL (3.4-5.0); CALCIUM 8.1 mg/dL (8.5-10.1); CARBON DIOXIDE 24.5 mmol/L (21-32); COR CA(FOR HYPOALB) 9.4 mg/dL (8.5-10.1); CREATININE 1.25 mg/dL (0.55-1.02); TOTAL PROTEIN 6.1 g/dL (6.4-8.2)
[2018-04-16 05:30] LABS: BASOPHILS % (AUTO) 0.3 % (0.2-1.0); EOSINOPHILS # (AUTO) 0.1 x10^3/uL (0.0-0.2); EOSINOPHILS % (AUTO) 0.6 % (0.9-2.9); HEMATOCRIT 31.4 % (36.0-47.0); HEMOGLOBIN 10.8 g/dL (12.0-16.0); LYMPHOCYTES # (AUTO) 0.7 X10^3/uL (1.3-2.9); LYMPHOCYTES % (AUTO) 5.5 % (21.0-51.0); MEAN CORPUSCULAR HEMOGLOBIN 33.5 pg (27.0-34.0); MEAN CORPUSCULAR HGB CONC 34.4 g/dL (33.0-35.0); MEAN CORPUSCULAR VOLUME 97.4 fL (80.0-100.0); MEAN PLATELET VOLUME 8.3 fL (7.4-11.0); MONOCYTES # (AUTO) 0.3 x10^3/uL (0.3-0.8); MONOCYTES % (AUTO) 2.5 % (0.0-13.0); NEUTROPHILS # (AUTO) 12.3 x10^3/uL (2.2-4.8); NEUTROPHILS % (AUTO) 91.1 % (42.0-75.0); PLATELET COUNT 249 X10^3/uL (150.0-450.0); RED BLOOD COUNT 3.22 X10^6/uL (3.5-5.4); RED CELL DISTRIBUTION WIDTH 13.8 % (11.6-16.5); WHITE BLOOD COUNT 13.5 X10^3/uL (3.6-10.0)
[2018-04-16 05:40] LABS: CKMB % 4.6 % (<4); CREATINE KINASE 22 Units/L (26-192); CREATINE KINASE MB < 1.0 ng/mL (0-4.0); TROPONIN I < 0.02 ng/mL (0-1.5)
[2018-04-16 05:49] LABS: BAND NEUTROPHILS % 1 % (0-10); PLATELET MORPHOLOGY COMMENT NORMAL (NORMAL)
[2018-04-16] MEDS ORDERED: PATIENT'S HOME MEDICATION (Multivit-Min-Fa-Lycopen-Lutein [Centrum Silver] 1 TAB) PO SCH (09:00)
[2018-04-16] MEDS ORDERED: DETROL LA 2 MG CAP EXT REL PO SCH (09:00)
[2018-04-16] MEDS ORDERED: PREDNISONE TAB 5 MG PO SCH (09:00)
[2018-04-16] MEDS ORDERED: K-LYTE EFFERVESCENT PO SCH (09:00)
[2018-04-16] MEDS ORDERED: OSCAL+D or CALTRATE+D PO SCH (09:00)
[2018-04-16] MEDS ORDERED: ASPIRIN EC 81 MG PO SCH (09:00)
[2018-04-16] MEDS ORDERED: SYNTHROID 75 mcg TAB PO SCH (09:00)
[2018-04-16] MEDS ORDERED: FLONASE NASAL SPRAY ENOSTRIL SCH (09:00)
[2018-04-16] MEDS ORDERED: ZESTRIL TAB 5 MG PO SCH (09:00)
[2018-04-16] MEDS ORDERED: BESIFLOXACIN OP SCH (09:00)
[2018-04-16] MEDS ORDERED: GARLIC 1 MG PO SCH (09:00)
[2018-04-16] MEDS ORDERED: VITAMIN C PO SCH (09:00)
[2018-04-16] MEDS: BACTRIM DS TAB PO SCH (09:27)
[2018-04-16] MEDS: NS 1000 ML 1,000 ML IV SCH (09:53)
--- NOTE | 2018-04-16 09:58 | RAD ---
History: Knee pain after fall 3 days ago Study: AP and lateral right knee Comparison: July 31, 2014 Findings: There is no fracture or subluxation or joint effusion or significant osteophyte formation. There is faint arterial vascular calcification. Impression: No acute disease Reported By:
--- NOTE | 2018-04-16 09:59 | RAD ---
History: Left knee pain after a fall 3 days ago Study: AP and lateral left knee Findings: There is no fracture or subluxation or joint effusion or significant marginal osteophyte formation. Impression: Negative Reported By:
--- NOTE | 2018-04-16 10:02 | RAD ---
History: Syncope Study: AP chest Comparison: April 12 Findings: There is a persistent left basilar retrocardiac density which obscures the left hemidiaphragm. There is blunting of the left costophrenic angle. There is chronic interstitial lung disease. The heart size is prominent. Impression: Persistent left basilar pneumonia with a small left pleural effusion Reported By:
[2018-04-16] MEDS ORDERED: LASIX PO PRN (13:35)
[2018-04-16] MEDS: DIFLUCAN 100 MG IV (MIX by PHARMACY)* 100 MG/50 ML BAG IV SCH (14:04)
[2018-04-16] MEDS: ZOSYN VIAL 3.375 GRAMS 3.375 G in NS 100 ML IV + SPIKE MINIBAG* 100 ML IV SCH ×2 (15:53→21:51)
--- NOTE | 2018-04-16 16:51 | DR.H&P ---
H&P - History & Physical for Day of: H&P Date: 04/15/18 - Chief Complaint Chief Complaint: DIARRHEA, WEAKNESS, NEAR SYNCOPE - History of Present Illness History of Present Illness: 87 WF ER ADMISSION WITH CO WEAKNESS, FALL WITH KNEE INJURY AND DIARRHEA. PT WAS RECENTLY IN [facility] FOR RLE CELLULITIS, PNEUMONIA AND WEAKNESS AND WAS SWING BED FOR 5 DAYS AND ASKED TO GO HOME. PT HAD CT HEAD ON ER VISIT WITHOUT ACUTE FINDINGS. PT HAD HYPOKALEMIA AND WBC 13.5. PT HAS PMH OF GERD, HYPOTHYROIDISM, OA - Past Medical History Past Medical History: Anxiety, Hypothyroidism, GERD Additional Medical History: ANDRAL GLAND INSUFFICIENCY - Past Surgical History Surgical History: Hysterectomy, Ortho Surgery, Other - Family History Family Medical History: Diabetes Mellitus, Cancer, [place] - Social History Does patient currently use any type of tobacco product: No Have you used tobacco products in the last 12 months: No Type of Tobacco Use: None Does any household member use tobacco: No Alcohol Use: None Drug Use: None - Medications Home Medications: cephalexin Allergy (Verified 04/15/18 11:38) clarithromycin [From Biaxin] Allergy (Verified 04/15/18 11:38) CONTINUE taking the following medications ascorbic acid (vitamin C) [Vitamin C] 1,000 mg PO DAILY 04/15/18 [History] aspirin [Aspir-81] 81 mg PO DAILY 04/15/18 [History] atorvastatin 10 mg PO HS 04/15/18 [History] besifloxacin [Besivance] 1 drp OPHTHALMIC (EYE) DAILY 04/15/18 [History] calcium carbonate-vitamin D3 [Caltrate 600 + D] 2 tab PO DAILY 04/15/18 [History] clonazepam 0.5 mg PO PRN PRN 04/15/18 [History] fluticasone [Flonase Allergy Relief] 1 spray INTRANASAL DAILY 04/15/18 [History] furosemide [Lasix] 20 mg PO DAILY PRN 04/15/18 [History] garlic 1 mg PO DAILY 04/15/18 [History] ibandronate 150 mg MONTHLY 04/15/18 [History] levothyroxine 75 mcg PO DAILY 04/15/18 [History] lisinopril 2.5 mg PO DAILY 04/15/18 [History] [id number]-lycopen-lutein [Centrum Silver] 1 tab PO DAILY 04/15/18 [History] prednisone 5 mg PO DAILY 04/15/18 [History] sulfamethoxazole-trimethoprim [Bactrim DS] 800 mg PO BID 04/15/18 [History] tolterodine 2 mg PO DAILY 04/15/18 [History] - Review of Systems Constitutional: Fever, Weakness Eyes: No Symptoms Reported ENT: No Symptoms Reported Respiratory: No Symptoms Reported Cardiovascular: No Symptoms Reported Gastrointestinal: Nausea, Vomiting, Diarrhea Genitourinary: No Symptoms Reported Musculoskeletal: Leg Pain Skin: Bruising (BILATERAL KNEE, BRUISES), Wound Neurological: Weakness - Physical Exam Vital Signs: Temperature 101.3 F Pulse Rate [Right Radial] 76 Pulse Rate 74 Respiratory Rate 20 Blood Pressure [Left Arm] 133/62 Blood Pressure [Right Arm] 122/60 Blood Pressure 151/67 O2 Sat by Pulse Oximetry 100 Oriented: Normal Eyes: Normal Ear: Normal Nose: Normal Throat: Normal Respiratory: RLL Diminished, LLL Diminished Cardiovascular: Normal, Edema : Normal Auscultation: Bowel Sounds: Normal Tenderness: Normal Skin: Decreased [place], Wound, Bruising Musculoskeletal: Normal Psychiatric: Anxiety Affect: Anxious Speech Pattern: Clear, Appropriate - Assessment/Plan (1) Hypokalemia Status: Acute Plan: ADMIT, IV HYDRATION. VERIFY HOME MEDS, SERIAL CE AND EKG'S. BP CONTROL, CXR, BLOOD AND SPUTUM CULTURES. RESP CONSULT, POTASSIUM REPLACEMENT, STOOL STUDIES. LOMOTIL PRN (2) Cellulitis of leg, right Status: Acute (3) Pneumonia Status: Acute (4) Near syncope Status: Acute (5) Generalized weakness Status: Acute (6) Diarrhea Qualifiers: Diarrhea type: unspecified type Qualified Code(s): R19.7 - Diarrhea, unspecified Status: Acute - Allergies Allergies/Adverse Reactions: Allergies Allergy/AdvReac Type Severity Reaction Status Date / Time cephalexin Allergy Verified 04/15/18 11:38 clarithromycin [From Biaxin] Allergy Verified 04/15/18 11:38
[2018-04-16] MEDS ORDERED: LOMOTIL PO PRN (17:04)
--- NOTE | 2018-04-16 17:08 | PCM.PROG ---
Progress Note - Progress Note for Day of Date of Exam: 04/16/18 - Subjective Subjective: 87 WF ER ADMISSION LAST NIGHT WITH NEAR SYNCOPE AND GENERALIZED WEAKNESS. PT POTASSIUM 3.1, STARTED ON POTASSIUM SUPPLEMENT. PT CONTINUED WITH FEVER, BLOOD, URINE AND SPUTUM CULTURES ORDRED. GENTLE HYDRATION, CXR WITH PNEUMONIA, IV ZOSYN AND RESP CONSULT. LOMOTIL FOR DIARRHEA PRN - Past Medical Family Social History Past Med/Fam/Surg Hx: No changes since H&P Allergies: Allergies cephalexin Allergy (Verified 04/15/18 11:38) clarithromycin [From Biaxin] Allergy (Verified 04/15/18 11:38) - Review of Systems ROS: No change since H&P - Vital Signs and I&O's Vital Signs: Temperature 101.3 F Pulse Rate [Right Radial] 76 Pulse Rate 74 Respiratory Rate 20 Blood Pressure [Left Arm] 133/62 Blood Pressure [Right Arm] 122/60 Blood Pressure 151/67 O2 Sat by Pulse Oximetry 100 Intake and Output: Intake & Output 04/14/18 04/15/18 04/16/18 04/17/18 11:59 11:59 11:59 11:59 Intake Total 300 / 300 Balance 300 / 300 - Physical Exam Oriented: Normal Eyes: Normal Ear: Normal Nose: Normal Throat: Normal Respiratory: Diminished Cardiovascular: Normal, Edema : Normal Auscultation: Bowel Sounds: Normal Tenderness: Normal Skin: Decreased Turgur, Wound, Bruising Musculoskeletal: Normal Psychiatric: Anxiety Affect: Anxious Speech Pattern: Clear, Appropriate - Laboratory and Diagnostics Result Diagrams: 04/16/18 04:54 04/16/18 04:54 Labs: 04/15/18 13:57 Stool Stool Culture - Preliminary 04/15/18 13:57 Stool - Final Laboratory WBC 13.5 X10^3/uL (3.6-10.0) H 04/16/18 04:54 RBC 3.22 X10^6/uL (3.5-5.4) L 04/16/18 04:54 Hgb 10.8 g/dL (12.0-16.0) L 04/16/18 04:54 Hct 31.4 % (36.0-47.0) L 04/16/18 04:54 MCV 97.4 fL (80.0-100.0) 04/16/18 04:54 MCH 33.5 pg (27.0-34.0) 04/16/18 04:54 MCHC 34.4 g/dL (33.0-35.0) 04/16/18 04:54 RDW 13.8 % (11.6-16.5) 04/16/18 04:54 Plt Count 249 X10^3/uL (150.0-450.0) 04/16/18 04:54 Plt Count Comment Adequate (ADEQUATE) 04/16/18 04:54 MPV 8.3 fL (7.4-11.0) 04/16/18 04:54 Neut % (Auto) 91.1 % (42.0-75.0) H 04/16/18 04:54 Lymph % (Auto) 5.5 % (21.0-51.0) L 04/16/18 04:54 [place] % (Auto) 2.5 % (0.0-13.0) 04/16/18 04:54 Eos % (Auto) 0.6 % (0.9-2.9) L 04/16/18 04:54 Baso % (Auto) 0.3 % (0.2-1.0) 04/16/18 04:54 Neut # (Auto) 12.3 x10^3/uL (2.2-4.8) H 04/16/18 04:54 Lymph # (Auto) 0.7 X10^3/uL (1.3-2.9) L 04/16/18 04:54 [place] # (Auto) 0.3 x10^3/uL (0.3-0.8) 04/16/18 04:54 Eos # (Auto) 0.1 x10^3/uL (0.0-0.2) 04/16/18 04:54 Baso # (Auto) 0.0 X10^3/uL (0.0-0.1) 04/16/18 04:54 Absolute Nucleated RBC 0.0 /100WBC 04/16/18 04:54 Total Counted 100 04/16/18 04:54 Neutrophils % (Manual) 92 % (39-76) H 04/16/18 04:54 Band Neutrophils % 1 % (0-10) 04/16/18 04:54 Lymphocytes % (Manual) 5 % (13-43) L 04/16/18 04:54 Monocytes % (Manual) 1 % (4-9) L 04/16/18 04:54 Eosinophils % (Manual) 1 % (0-6) 04/16/18 04:54 Plt Morphology Comment Normal (NORMAL) 04/16/18 04:54 RBC Morphology Normal (NORMAL) 04/16/18 04:54 Sodium 141 mmol/L (136-145) 04/16/18 04:54 Corrected Sodium 142 mmol/L (136-145) 04/16/18 04:54 Potassium 3.1 mmol/L (3.5-5.1) L 04/16/18 04:54 Chloride 107 mmol/L (98-107) 04/16/18 04:54 Carbon Dioxide 24.5 mmol/L (21-32) 04/16/18 04:54 BUN 15 mg/dL (7-18) 04/16/18 04:54 Creatinine 1.25 mg/dL (0.55-1.02) H 04/16/18 04:54 Est GFR (MDRD) Af Amer 52 (>60) L 04/16/18 04:54 Est GFR (MDRD) Non-Af 43 (>60) L 04/16/18 04:54 Glucose 129 mg/dL (65-99) H 04/16/18 04:54 Calcium 8.1 mg/dL (8.5-10.1) L 04/16/18 04:54 Corrected Calcium 9.4 mg/dL (8.5-10.1) 04/16/18 04:54 Total Bilirubin 0.30 mg/dL (0.2-1.0) 04/16/18 04:54 AST 22 Units/L (15-37) 04/16/18 04:54 ALT 27 Units/L (12-78) 04/16/18 04:54 Alkaline Phosphatase 96 Units/L (46-116) 04/16/18 04:54 Creatine Kinase 22 Units/L (26-192) L 04/16/18 04:54 CK-MB (CK-2) < 1.0 ng/mL (0-4.0) 04/16/18 04:54 CK/CKMB % Calc 4.6 % (<4) 04/16/18 04:54 Troponin I < 0.02 ng/mL (0-1.5) 04/16/18 04:54 Total Protein 6.1 g/dL (6.4-8.2) L 04/16/18 04:54 Albumin 2.4 g/dL (3.4-5.0) L 04/16/18 04:54 Globulin 3.7 g/dL (2.5-4.5) 04/16/18 04:54 Albumin/Globulin Ratio 0.6 Ratio (1.1-2.1) L 04/16/18 04:54 Amylase 97 Units/L (25-115) 04/15/18 12:17 Lipase 304 Units/L (73-393) 04/15/18 12:17 Specimen Type Clean catch urine 04/15/18 13:57 Urine Color Yellow (YELLOW) 04/15/18 13:57 Urine Appearance Clear (CLEAR) 04/15/18 13:57 Urine pH 5.0 (5.0 - 8.0) 04/15/18 13:57 Ur Specific [place] 1.010 (1.000-1.030) 04/15/18 13:57 Urine Protein Negative (NEGATIVE) 04/15/18 13:57 Urine Glucose (UA) Negative (NEGATIVE) 04/15/18 13:57 Urine Ketones Negative (NEGATIVE) 04/15/18 13:57 Urine Occult Blood Negative (NEGATIVE) 04/15/18 13:57 Urine Nitrite Negative (NEGATIVE) 04/15/18 13:57 Urine Bilirubin Negative (NEGATIVE) 04/15/18 13:57 Urine Urobilinogen Normal (NORMAL) 04/15/18 13:57 Ur Leukocyte Esterase Negative (NEGATIVE) 04/15/18 13:57 Stool Description 20g unformed dark br 04/15/18 13:57 Stool for White Cells Negative (NEGATIVE) 04/15/18 13:57 Stl C. diff Tox B Gene Negative (NEGATIVE) 04/15/18 13:57 Stl C. diff [id number] Negative (NEGATIVE) 04/15/18 13:57 Cryptosporid parvum Ag Negative (NEGATIVE) 04/15/18 13:57 Giardia lamblia Ag Negative (NEGATIVE) 04/15/18 13:57 - Plan (1) Hypokalemia Status: Acute Plan: IV HYDRATION. POTASSIUM REPLACEMENT, STOOL STUDIES. LOMOTIL PRN (2) Cellulitis of leg, right Status: Acute (3) Pneumonia Status: Acute Plan: RESP CONSULT, JET NEBS. SUPPLEMENTAL O2, IV ZOSYN, SPUTUM CULTURES PENDING (4) Near syncope Status: Acute (5) Generalized weakness Status: Acute (6) Diarrhea Status: Acute Qualifiers: Diarrhea type: unspecified type Qualified Code(s): R19.7 - Diarrhea, unspecified
[2018-04-16] MEDS: DUONEB 0.5 MG/3 MG NEB SCH ×2 (17:15→21:03)
[2018-04-16] MEDS ORDERED: BACTRIM DS TAB PO SCH (21:00)
[2018-04-16] MEDS: K-LYTE EFFERVESCENT PO SCH (21:50)
[2018-04-16] MEDS: LIPITOR TAB 10 MG PO SCH (21:52)
[2018-04-16] MEDS: KLONOPIN TAB 0.5 MG PO PRN (21:52)
[2018-04-16] MEDS ORDERED: POTASSIUM CHL 40 MEQ/NS 0.45% 500 ML IV PRN (22:20)
[2018-04-16] MEDS ORDERED: KLOR-CON PO PRN (22:20)
[2018-04-16] MEDS ORDERED: K-RIDER 10 MEQ/NS 100 ML 10 MEQ/100 ML BAG IV PRN (22:20)
[2018-04-16] MEDS ORDERED: K-DUR TAB 20 MEQ PO PRN (22:20)
[2018-04-16] MEDS ORDERED: POTASSIUM CHL 60 MEQ/NS 0.45% 500 ML IV PRN (22:20)
[2018-04-16] MEDS ORDERED: POTASSIUM CHLORIDE LIQ 20 MEQ UDC PO PRN (22:20)
[2018-04-16] MEDS ORDERED: MICRO K EXTEN CAP 10 MEQ PO PRN (22:20)
[2018-04-16] MEDS: MAGNESIUM SULFATE 1 GRAM/100 mL PREMIX 1 GM/100 ML BAG IV PRN (23:51)
[2018-04-17] MEDS: MAGNESIUM SULFATE 1 GRAM/100 mL PREMIX 1 GM/100 ML BAG IV PRN (02:19)
[2018-04-17 05:17] LABS: BASOPHILS % (AUTO) 0.1 % (0.2-1.0); EOSINOPHILS # (AUTO) 0.2 x10^3/uL (0.0-0.2); EOSINOPHILS % (AUTO) 1.6 % (0.9-2.9); HEMATOCRIT 28.6 % (36.0-47.0); HEMOGLOBIN 9.8 g/dL (12.0-16.0); LYMPHOCYTES # (AUTO) 0.2 X10^3/uL (1.3-2.9); MEAN CORPUSCULAR HEMOGLOBIN 33.3 pg (27.0-34.0); MEAN CORPUSCULAR HGB CONC 34.4 g/dL (33.0-35.0); MEAN CORPUSCULAR VOLUME 96.9 fL (80.0-100.0); MONOCYTES # (AUTO) 0.3 x10^3/uL (0.3-0.8); MONOCYTES % (AUTO) 2.3 % (0.0-13.0); NEUTROPHILS # (AUTO) 11.4 x10^3/uL (2.2-4.8); PLATELET COUNT 247 X10^3/uL (150.0-450.0); RED BLOOD COUNT 2.95 X10^6/uL (3.5-5.4); RED CELL DISTRIBUTION WIDTH 13.8 % (11.6-16.5); WHITE BLOOD COUNT 12.1 X10^3/uL (3.6-10.0)
[2018-04-17] MEDS: ZOSYN VIAL 3.375 GRAMS 3.375 G in NS 100 ML IV + SPIKE MINIBAG* 100 ML IV SCH ×2 (05:22→14:53)
[2018-04-17 05:33] LABS: CALCIUM 7.9 mg/dL (8.5-10.1); CARBON DIOXIDE 23.9 mmol/L (21-32); COR CA(FOR HYPOALB) 9.5 mg/dL (8.5-10.1); CREATININE 1.79 mg/dL (0.55-1.02); MAGNESIUM 2.9 mg/dL (1.7-2.9); TOTAL PROTEIN 5.6 g/dL (6.4-8.2)
[2018-04-17 05:42] LABS: BAND NEUTROPHILS % 4 % (0-10); PLATELET MORPHOLOGY COMMENT NORMAL (NORMAL)
[2018-04-17] MEDS ORDERED: PATIENT'S HOME MEDICATION (Multivit-Min-Fa-Lycopen-Lutein [Centrum Silver] 1 TAB) PO SCH (09:00)
[2018-04-17] MEDS ORDERED: GARLIC 1 MG PO SCH (09:00)
--- NOTE | 2018-04-17 09:21 | PCM.PROG ---
Progress Note - Progress Note for Day of Date of Exam: 04/17/18 - Subjective Subjective: 87 WF ER ADMISSION LAST NIGHT WITH NEAR SYNCOPE AND GENERALIZED WEAKNESS. HYPOKALEMIA K + 3.8, WBC 12.1 THIS AM,PT CONTINUED WITH FEVER, BLOOD, URINE AND SPUTUM CULTURES ORDRED. GENTLE HYDRATION, CXR WITH PNEUMONIA, IV ZOSYN AND RESP CONSULT. STOOL CULTURE NEGATIVE AT THIS TIME. CT CHEST W/O, MUCOMYST TO NEB SOLUTION, MAG LEVEL - Past Medical Family Social History Past Med/Fam/Surg Hx: No changes since H&P Allergies: Allergies cephalexin Allergy (Verified 04/15/18 11:38) clarithromycin [From Biaxin] Allergy (Verified 04/15/18 11:38) - Review of Systems ROS: No change since H&P - Vital Signs and I&O's Vital Signs: Temperature 99.0 F Pulse Rate [Right Radial] 73 Pulse Rate 69 Respiratory Rate 20 Blood Pressure [Left Arm] 90/44 Blood Pressure [Right Arm] 145/64 Blood Pressure 151/67 O2 Sat by Pulse Oximetry 96 Intake and Output: Intake & Output 04/14/18 04/15/18 04/16/18 04/17/18 11:59 11:59 11:59 11:59 Intake Total 300 / 300 420 / 420 Balance 300 / 300 420 / 420 - Physical Exam Oriented: Normal Eyes: Normal Ear: Normal Nose: Normal Throat: Normal Respiratory: Diminished Cardiovascular: Normal, Edema : Normal Auscultation: Bowel Sounds: Normal Tenderness: Normal Skin: Decreased Turgur, Wound, Bruising Musculoskeletal: Normal Psychiatric: Anxiety Affect: Anxious Speech Pattern: Clear, Appropriate - Laboratory and Diagnostics Result Diagrams: 04/17/18 04:20 04/17/18 04:20 Labs: 04/15/18 13:57 Stool Stool Culture - Preliminary 04/15/18 13:57 Stool - Final Laboratory WBC 12.1 X10^3/uL (3.6-10.0) H 04/17/18 04:20 RBC 2.95 X10^6/uL (3.5-5.4) L 04/17/18 04:20 Hgb 9.8 g/dL (12.0-16.0) L 04/17/18 04:20 Hct 28.6 % (36.0-47.0) L 04/17/18 04:20 MCV 96.9 fL (80.0-100.0) 04/17/18 04:20 MCH 33.3 pg (27.0-34.0) 04/17/18 04:20 MCHC 34.4 g/dL (33.0-35.0) 04/17/18 04:20 RDW 13.8 % (11.6-16.5) 04/17/18 04:20 Plt Count 247 X10^3/uL (150.0-450.0) 04/17/18 04:20 Plt Count Comment Adequate (ADEQUATE) 04/17/18 04:20 MPV 9.0 fL (7.4-11.0) 04/17/18 04:20 Neut % (Auto) 94.0 % (42.0-75.0) H 04/17/18 04:20 Lymph % (Auto) 2.0 % (21.0-51.0) L 04/17/18 04:20 [place] % (Auto) 2.3 % (0.0-13.0) 04/17/18 04:20 Eos % (Auto) 1.6 % (0.9-2.9) 04/17/18 04:20 Baso % (Auto) 0.1 % (0.2-1.0) L 04/17/18 04:20 Neut # (Auto) 11.4 x10^3/uL (2.2-4.8) H 04/17/18 04:20 Lymph # (Auto) 0.2 X10^3/uL (1.3-2.9) L 04/17/18 04:20 [place] # (Auto) 0.3 x10^3/uL (0.3-0.8) 04/17/18 04:20 Eos # (Auto) 0.2 x10^3/uL (0.0-0.2) 04/17/18 04:20 Baso # (Auto) 0.0 X10^3/uL (0.0-0.1) 04/17/18 04:20 Absolute Nucleated RBC 0.0 /100WBC 04/17/18 04:20 Total Counted 100 04/17/18 04:20 Neutrophils % (Manual) 91 % (39-76) H 04/17/18 04:20 Band Neutrophils % 4 % (0-10) 04/17/18 04:20 Lymphocytes % (Manual) 2 % (13-43) L 04/17/18 04:20 Monocytes % (Manual) 2 % (4-9) L 04/17/18 04:20 Eosinophils % (Manual) 1 % (0-6) 04/17/18 04:20 Plt Morphology Comment Normal (NORMAL) 04/17/18 04:20 RBC Morphology Normal (NORMAL) 04/17/18 04:20 Sodium 140 mmol/L (136-145) 04/17/18 04:20 Corrected Sodium 140 mmol/L (136-145) 04/17/18 04:20 Potassium 3.8 mmol/L (3.5-5.1) 04/17/18 04:20 Chloride 105 mmol/L (98-107) 04/17/18 04:20 Carbon Dioxide 23.9 mmol/L (21-32) 04/17/18 04:20 BUN 18 mg/dL (7-18) 04/17/18 04:20 Creatinine 1.79 mg/dL (0.55-1.02) H 04/17/18 04:20 Est GFR (MDRD) Af Amer 35 (>60) L 04/17/18 04:20 Est GFR (MDRD) Non-Af 29 (>60) L 04/17/18 04:20 Glucose 120 mg/dL (65-99) H 04/17/18 04:20 Calcium 7.9 mg/dL (8.5-10.1) L 04/17/18 04:20 Corrected Calcium 9.5 mg/dL (8.5-10.1) 04/17/18 04:20 Magnesium 2.9 mg/dL (1.7-2.9) 04/17/18 04:20 Total Bilirubin 0.30 mg/dL (0.2-1.0) 04/17/18 04:20 AST 25 Units/L (15-37) 04/17/18 04:20 ALT 27 Units/L (12-78) 04/17/18 04:20 Alkaline Phosphatase 92 Units/L (46-116) 04/17/18 04:20 Creatine Kinase 22 Units/L (26-192) L 04/16/18 04:54 CK-MB (CK-2) < 1.0 ng/mL (0-4.0) 04/16/18 04:54 CK/CKMB % Calc 4.6 % (<4) 04/16/18 04:54 Troponin I < 0.02 ng/mL (0-1.5) 04/16/18 04:54 Total Protein 5.6 g/dL (6.4-8.2) L 04/17/18 04:20 Albumin 2.0 g/dL (3.4-5.0) L 04/17/18 04:20 Globulin 3.6 g/dL (2.5-4.5) 04/17/18 04:20 Albumin/Globulin Ratio 0.6 Ratio (1.1-2.1) L 04/17/18 04:20 Amylase 97 Units/L (25-115) 04/15/18 12:17 Lipase 304 Units/L (73-393) 04/15/18 12:17 Specimen Type Clean catch urine 04/15/18 13:57 Urine Color Yellow (YELLOW) 04/15/18 13:57 Urine Appearance Clear (CLEAR) 04/15/18 13:57 Urine pH 5.0 (5.0 - 8.0) 04/15/18 13:57 Ur Specific [place] 1.010 (1.000-1.030) 04/15/18 13:57 Urine Protein Negative (NEGATIVE) 04/15/18 13:57 Urine Glucose (UA) Negative (NEGATIVE) 04/15/18 13:57 Urine Ketones Negative (NEGATIVE) 04/15/18 13:57 Urine Occult Blood Negative (NEGATIVE) 04/15/18 13:57 Urine Nitrite Negative (NEGATIVE) 04/15/18 13:57 Urine Bilirubin Negative (NEGATIVE) 04/15/18 13:57 Urine Urobilinogen Normal (NORMAL) 04/15/18 13:57 Ur Leukocyte Esterase Negative (NEGATIVE) 04/15/18 13:57 Stool Description 20g unformed dark br 04/15/18 13:57 Stool for White Cells Negative (NEGATIVE) 04/15/18 13:57 Stl C. diff Tox B Gene Negative (NEGATIVE) 04/15/18 13:57 Stl C. diff [id number] Negative (NEGATIVE) 04/15/18 13:57 Cryptosporid parvum Ag Negative (NEGATIVE) 04/15/18 13:57 Giardia lamblia Ag Negative (NEGATIVE) 04/15/18 13:57 - Plan (1) Hypokalemia Status: Acute Plan: IV HYDRATION. POTASSIUM REPLACEMENT, STOOL STUDIES. LOMOTIL PRN (2) Pneumonia Status: Acute Plan: RESP CONSULT, JET NEBS. SUPPLEMENTAL O2, IV ZOSYN, SPUTUM CULTURES PENDING (3) Cellulitis of leg, right Status: Acute (4) Near syncope Status: Acute (5) Generalized weakness Status: Acute (6) Diarrhea Status: Acute Qualifiers: Diarrhea type: unspecified type Qualified Code(s): R19.7 - Diarrhea, unspecified
[2018-04-17] MEDS: DUONEB 0.5 MG/3 MG NEB SCH ×4 (09:39→20:31)
[2018-04-17] MEDS: MUCOMYST 20% 200 MG/ML NEB SCH ×4 (09:39→20:31)
[2018-04-17] MEDS: ASPIRIN EC 81 MG PO SCH (10:24)
[2018-04-17] MEDS: TAB-A-VITE PO SCH (10:25)
[2018-04-17] MEDS: DETROL LA 2 MG CAP EXT REL PO SCH (10:25)
[2018-04-17] MEDS: PREDNISONE TAB 5 MG PO SCH (10:25)
[2018-04-17] MEDS: ZESTRIL TAB 5 MG PO SCH (10:26)
[2018-04-17] MEDS: OSCAL+D or CALTRATE+D PO SCH (10:27)
[2018-04-17] MEDS: VITAMIN C PO SCH (10:27)
[2018-04-17] MEDS: SYNTHROID 75 mcg TAB PO SCH (10:27)
[2018-04-17] MEDS: BESIFLOXACIN OP SCH (10:30)
[2018-04-17] MEDS: FLONASE NASAL SPRAY ENOSTRIL SCH (10:31)
[2018-04-17] MEDS: CARAFATE ORAL SUSP PO SCH ×3 (10:31→20:50)
[2018-04-17] MEDS: K-LYTE EFFERVESCENT PO SCH ×2 (10:46→20:49)
[2018-04-17] MEDS: NS 1000 ML 1,000 ML IV SCH ×3 (11:27→20:46)
[2018-04-17] MEDS: DIFLUCAN 100 MG IV (MIX by PHARMACY)* 100 MG/50 ML BAG IV SCH (11:48)
--- NOTE | 2018-04-17 14:54 | CT ---
CT CHEST WITHOUT IV CONTRAST HISTORY: Pneumonia and shortness of breath Comparison: Abdomen CT 04/15/2018, chest CT 04/12/2014 Technique: Multiple axial images of the chest were obtained from the thoracic inlet to the upper abdomen. Dose reduction techniques including Automated Exposure Control (AEC) and adjustment of mA and kV were utlized. Findings: The evaluation of the mediastinal structures is diminished without the use of IV contrast. Mild cardiomegaly. Trace pericardial effusion. Severe vascular and valvular disease. No suspicious mediastinal or axillary lymph nodes. Small bilateral effusions with adjacent atelectasis/consolidations. Airways are patent. No suspicious pulmonary nodules or masses. Limited images of the upper abdomen are unremarkable. No aggressive osseous lesions. IMPRESSION: 1. Small bilateral pleural effusions with adjacent atelectasis. Superimposed infection cannot be excluded . 2. Mild cardiomegaly, trace pericardial effusion and severe vascular/valvular disease. Reported By:
[2018-04-17] MEDS: LIPITOR TAB 10 MG PO SCH (20:49)
[2018-04-17] MEDS: ZOSYN VIAL 2.25 GRAMS 2.25 G in NS 100 ML IV + SPIKE MINIBAG* 100 ML IV SCH (21:00)
[2018-04-18] MEDS: NS 1000 ML 1,000 ML IV SCH ×2 (01:01→14:45)
[2018-04-18 05:28] LABS: BASOPHILS % (AUTO) 0.3 % (0.2-1.0); EOSINOPHILS # (AUTO) 0.2 x10^3/uL (0.0-0.2); EOSINOPHILS % (AUTO) 4.4 % (0.9-2.9); HEMATOCRIT 26.6 % (36.0-47.0); HEMOGLOBIN 9.1 g/dL (12.0-16.0); LYMPHOCYTES # (AUTO) 0.4 X10^3/uL (1.3-2.9); LYMPHOCYTES % (AUTO) 8.4 % (21.0-51.0); MEAN CORPUSCULAR HEMOGLOBIN 33.2 pg (27.0-34.0); MEAN CORPUSCULAR HGB CONC 34.2 g/dL (33.0-35.0); MEAN CORPUSCULAR VOLUME 97.1 fL (80.0-100.0); MONOCYTES # (AUTO) 0.3 x10^3/uL (0.3-0.8); MONOCYTES % (AUTO) 5.6 % (0.0-13.0); NEUTROPHILS # (AUTO) 4.4 x10^3/uL (2.2-4.8); NEUTROPHILS % (AUTO) 81.3 % (42.0-75.0); PLATELET COUNT 216 X10^3/uL (150.0-450.0); RED BLOOD COUNT 2.74 X10^6/uL (3.5-5.4); RED CELL DISTRIBUTION WIDTH 14.3 % (11.6-16.5); WHITE BLOOD COUNT 5.4 X10^3/uL (3.6-10.0)
[2018-04-18 05:40] LABS: ALANINE AMINOTRANSFERASE 22 Units/L (12-78); ALBUMIN 1.9 g/dL (3.4-5.0); ALKALINE PHOSPHATASE 79 Units/L (46-116); ASPARTATE AMINO TRANSFERASE 17 Units/L (15-37); BLOOD UREA NITROGEN 22 mg/dL (7-18); CALCIUM 7.9 mg/dL (8.5-10.1); CARBON DIOXIDE 24.5 mmol/L (21-32); CHLORIDE 107 mmol/L (98-107); COR CA(FOR HYPOALB) 9.6 mg/dL (8.5-10.1); CREATININE 1.58 mg/dL (0.55-1.02); SODIUM 139 mmol/L (136-145); TOTAL PROTEIN 5.6 g/dL (6.4-8.2); eGFR NON BLACK RACES 33 (>60)
[2018-04-18] MEDS: ZOSYN VIAL 2.25 GRAMS 2.25 G in NS 100 ML IV + SPIKE MINIBAG* 100 ML IV SCH ×3 (05:58→21:23)
[2018-04-18] MEDS: CARAFATE ORAL SUSP PO SCH ×4 (05:58→21:22)
--- NOTE | 2018-04-18 07:11 | RAD ---
HISTORY: Shortness of breath Study: Chest AP portable Comparison: 04/16/2018, CT chest 04/17/2018 Findings: The heart is enlarged. No congestive heart failure is noted. The aorta is calcified. The lungs are hyperinflated. Interstitial lung changes are present bilaterally. No alveolar infiltrates are present in the right lung or left upper lobe. Increased density is present in the retrocardiac area the left lower lobe partially due to a known pleural effusion although there does appear to be some consolidation atelectasis also present on the recent CT. The bony thorax is unremarkable. IMPRESSION: Moderate cardiomegaly without congestive heart failure Bilateral small pleural effusions left greater than right Increased density in the retrocardiac area of the left lower lobe is likely due to pleural effusion and some underlying consolidation. Finding is stable when compared with the prior examination. Reported By:
[2018-04-18] MEDS: MUCOMYST 20% 200 MG/ML NEB SCH ×4 (08:18→20:55)
[2018-04-18] MEDS: DUONEB 0.5 MG/3 MG NEB SCH ×4 (08:18→20:55)
[2018-04-18] MEDS ORDERED: BUTT CREAM (COMPOUND) TOP PRN ×2 (09:05→13:43)
[2018-04-18] MEDS: FLONASE NASAL SPRAY ENOSTRIL SCH (09:37)
[2018-04-18] MEDS: DIFLUCAN 100 MG IV (MIX by PHARMACY)* 100 MG/50 ML BAG IV SCH (09:38)
[2018-04-18] MEDS: OSCAL+D or CALTRATE+D PO SCH (09:39)
[2018-04-18] MEDS: PREDNISONE TAB 5 MG PO SCH (09:39)
[2018-04-18] MEDS: ASPIRIN EC 81 MG PO SCH (09:39)
[2018-04-18] MEDS: DETROL LA 2 MG CAP EXT REL PO SCH (09:39)
[2018-04-18] MEDS: ZESTRIL TAB 5 MG PO SCH (09:40)
[2018-04-18] MEDS: SYNTHROID 75 mcg TAB PO SCH (09:40)
[2018-04-18] MEDS: TAB-A-VITE PO SCH (09:40)
[2018-04-18] MEDS: ROBITUSSIN DM PO SCH ×4 (09:40→21:22)
[2018-04-18] MEDS: VITAMIN C PO SCH (09:40)
[2018-04-18] MEDS: K-DUR TAB 20 MEQ PO SCH (09:45)
[2018-04-18] MEDS: BESIFLOXACIN OP SCH (09:45)
--- NOTE | 2018-04-18 14:13 | PCM.PROG ---
Progress Note - Progress Note for Day of Date of Exam: 04/18/18 - Subjective Subjective: 87 WF ER ADMISSION LAST NIGHT WITH NEAR SYNCOPE AND GENERALIZED WEAKNESS. HYPOKALEMIA K + 4.3, WBC 5.4 THIS AM,PT CONTINUED WITH FEVER, BLOOD, URINE AND SPUTUM CULTURES ORDRED. GENTLE HYDRATION, CXR WITH PNEUMONIA, IV ZOSYN AND RESP CONSULT. STOOL CULTURE NEGATIVE AT THIS TIME. CT CHEST W/O REVEALED LLL PNEUMONIA. MUCOMYST TO NEB SOLUTION - Past Medical Family Social History Past Med/Fam/Surg Hx: No changes since H&P Allergies: Allergies cephalexin Allergy (Verified 04/15/18 11:38) clarithromycin [From Biaxin] Allergy (Verified 04/15/18 11:38) - Review of Systems ROS: No change since H&P - Vital Signs and I&O's Vital Signs: Temperature 97.2 F Pulse Rate [Left] 69 Pulse Rate [Right Radial] 87 Pulse Rate 62 Respiratory Rate 18 Blood Pressure [Left Arm] 142/63 Blood Pressure [Right Arm] 145/64 Blood Pressure 151/67 O2 Sat by Pulse Oximetry 97 Intake and Output: Intake & Output 04/16/18 04/17/18 04/18/18 04/19/18 11:59 11:59 11:59 11:59 Intake Total 300 / 300 420 / 420 1620 / 1620 Output Total 500 / 500 Balance 300 / 300 420 / 420 1120 / 1120 - Physical Exam Oriented: Normal Eyes: Normal Ear: Normal Nose: Normal Throat: Normal Respiratory: Diminished Cardiovascular: Normal, Edema : Normal Auscultation: Bowel Sounds: Normal Tenderness: Normal Skin: Decreased Turgur, Wound, Bruising Musculoskeletal: Normal Psychiatric: Anxiety Affect: Anxious Speech Pattern: Clear, Appropriate - Laboratory and Diagnostics Result Diagrams: 04/18/18 04:18 04/18/18 04:18 Labs: 04/16/18 05:53 Blood Blood Culture - Preliminary 04/16/18 05:53 Blood Blood Culture - Preliminary 04/18/18 07:51 Sputum - Expectorated Sputum - Final 04/16/18 17:43 Urine,Clean Catch Urine Culture - Final 04/15/18 13:57 Stool Stool Culture - Final 04/15/18 13:57 Stool - Final Laboratory WBC 5.4 X10^3/uL (3.6-10.0) 04/18/18 04:18 RBC 2.74 X10^6/uL (3.5-5.4) L 04/18/18 04:18 Hgb 9.1 g/dL (12.0-16.0) L 04/18/18 04:18 Hct 26.6 % (36.0-47.0) L 04/18/18 04:18 MCV 97.1 fL (80.0-100.0) 04/18/18 04:18 MCH 33.2 pg (27.0-34.0) 04/18/18 04:18 MCHC 34.2 g/dL (33.0-35.0) 04/18/18 04:18 RDW 14.3 % (11.6-16.5) 04/18/18 04:18 Plt Count 216 X10^3/uL (150.0-450.0) 04/18/18 04:18 Plt Count Comment Adequate (ADEQUATE) 04/17/18 04:20 MPV 9.0 fL (7.4-11.0) 04/18/18 04:18 Neut % (Auto) 81.3 % (42.0-75.0) H 04/18/18 04:18 Lymph % (Auto) 8.4 % (21.0-51.0) L 04/18/18 04:18 [place] % (Auto) 5.6 % (0.0-13.0) 04/18/18 04:18 Eos % (Auto) 4.4 % (0.9-2.9) H 04/18/18 04:18 Baso % (Auto) 0.3 % (0.2-1.0) 04/18/18 04:18 Neut # (Auto) 4.4 x10^3/uL (2.2-4.8) 04/18/18 04:18 Lymph # (Auto) 0.4 X10^3/uL (1.3-2.9) L 04/18/18 04:18 [place] # (Auto) 0.3 x10^3/uL (0.3-0.8) 04/18/18 04:18 Eos # (Auto) 0.2 x10^3/uL (0.0-0.2) 04/18/18 04:18 Baso # (Auto) 0.0 X10^3/uL (0.0-0.1) 04/18/18 04:18 Absolute Nucleated RBC 0.0 /100WBC 04/18/18 04:18 Total Counted 100 04/17/18 04:20 Neutrophils % (Manual) 91 % (39-76) H 04/17/18 04:20 Band Neutrophils % 4 % (0-10) 04/17/18 04:20 Lymphocytes % (Manual) 2 % (13-43) L 04/17/18 04:20 Monocytes % (Manual) 2 % (4-9) L 04/17/18 04:20 Eosinophils % (Manual) 1 % (0-6) 04/17/18 04:20 Plt Morphology Comment Normal (NORMAL) 04/17/18 04:20 RBC Morphology Normal (NORMAL) 04/17/18 04:20 Sodium 139 mmol/L (136-145) 04/18/18 04:18 Corrected Sodium TNP 04/18/18 04:18 Potassium 4.3 mmol/L (3.5-5.1) 04/18/18 04:18 Chloride 107 mmol/L (98-107) 04/18/18 04:18 Carbon Dioxide 24.5 mmol/L (21-32) 04/18/18 04:18 BUN 22 mg/dL (7-18) H 04/18/18 04:18 Creatinine 1.58 mg/dL (0.55-1.02) H 04/18/18 04:18 Est GFR (MDRD) Af Amer 40 (>60) L 04/18/18 04:18 Est GFR (MDRD) Non-Af 33 (>60) L 04/18/18 04:18 Glucose 103 mg/dL (65-99) H 04/18/18 04:18 Calcium 7.9 mg/dL (8.5-10.1) L 04/18/18 04:18 Corrected Calcium 9.6 mg/dL (8.5-10.1) 04/18/18 04:18 Magnesium 2.9 mg/dL (1.7-2.9) 04/17/18 04:20 Total Bilirubin 0.20 mg/dL (0.2-1.0) 04/18/18 04:18 AST 17 Units/L (15-37) 04/18/18 04:18 ALT 22 Units/L (12-78) 04/18/18 04:18 Alkaline Phosphatase 79 Units/L (46-116) 04/18/18 04:18 Creatine Kinase 22 Units/L (26-192) L 04/16/18 04:54 CK-MB (CK-2) < 1.0 ng/mL (0-4.0) 04/16/18 04:54 CK/CKMB % Calc 4.6 % (<4) 04/16/18 04:54 Troponin I < 0.02 ng/mL (0-1.5) 04/16/18 04:54 Total Protein 5.6 g/dL (6.4-8.2) L 04/18/18 04:18 Albumin 1.9 g/dL (3.4-5.0) L 04/18/18 04:18 Globulin 3.7 g/dL (2.5-4.5) 04/18/18 04:18 Albumin/Globulin Ratio 0.5 Ratio (1.1-2.1) L 04/18/18 04:18 Amylase 97 Units/L (25-115) 04/15/18 12:17 Lipase 304 Units/L (73-393) 04/15/18 12:17 Specimen Type Clean catch urine 04/15/18 13:57 Urine Color Yellow (YELLOW) 04/15/18 13:57 Urine Appearance Clear (CLEAR) 04/15/18 13:57 Urine pH 5.0 (5.0 - 8.0) 04/15/18 13:57 Ur Specific [place] 1.010 (1.000-1.030) 04/15/18 13:57 Urine Protein Negative (NEGATIVE) 04/15/18 13:57 Urine Glucose (UA) Negative (NEGATIVE) 04/15/18 13:57 Urine Ketones Negative (NEGATIVE) 04/15/18 13:57 Urine Occult Blood Negative (NEGATIVE) 04/15/18 13:57 Urine Nitrite Negative (NEGATIVE) 04/15/18 13:57 Urine Bilirubin Negative (NEGATIVE) 04/15/18 13:57 Urine Urobilinogen Normal (NORMAL) 04/15/18 13:57 Ur Leukocyte Esterase Negative (NEGATIVE) 04/15/18 13:57 Stool Description 20g unformed dark br 04/15/18 13:57 Stool for White Cells Negative (NEGATIVE) 04/15/18 13:57 Stl C. diff Tox B Gene Negative (NEGATIVE) 04/15/18 13:57 Stl C. diff [id number]-BI Negative (NEGATIVE) 04/15/18 13:57 Cryptosporid parvum Ag Negative (NEGATIVE) 04/15/18 13:57 Giardia lamblia Ag Negative (NEGATIVE) 04/15/18 13:57 - Plan (1) Hypokalemia Status: Acute Plan: IV HYDRATION. POTASSIUM REPLACEMENT, STOOL STUDIES. LOMOTIL PRN (2) Pneumonia Status: Acute Plan: RESP CONSULT, JET NEBS. SUPPLEMENTAL O2, IV ZOSYN, SPUTUM CULTURES PENDING (3) Cellulitis of leg, right Status: Acute (4) Near syncope Status: Acute (5) Generalized weakness Status: Acute (6) Diarrhea Status: Acute Qualifiers: Diarrhea type: unspecified type Qualified Code(s): R19.7 - Diarrhea, uns pecified
[2018-04-18] MEDS ORDERED: DIFLUCAN PO ONE (17:53)
[2018-04-18] MEDS: LIPITOR TAB 10 MG PO SCH (21:22)
[2018-04-18] MEDS: KLONOPIN TAB 0.5 MG PO PRN (21:46)
[2018-04-19 05:12] LABS: BASOPHILS % (AUTO) 0.8 % (0.2-1.0); EOSINOPHILS # (AUTO) 0.2 x10^3/uL (0.0-0.2); EOSINOPHILS % (AUTO) 4.5 % (0.9-2.9); HEMATOCRIT 25.7 % (36.0-47.0); HEMOGLOBIN 8.8 g/dL (12.0-16.0); LYMPHOCYTES # (AUTO) 0.6 X10^3/uL (1.3-2.9); LYMPHOCYTES % (AUTO) 15.7 % (21.0-51.0); MEAN CORPUSCULAR HEMOGLOBIN 33.2 pg (27.0-34.0); MEAN CORPUSCULAR HGB CONC 34.3 g/dL (33.0-35.0); MEAN CORPUSCULAR VOLUME 96.9 fL (80.0-100.0); MEAN PLATELET VOLUME 8.9 fL (7.4-11.0); MONOCYTES # (AUTO) 0.4 x10^3/uL (0.3-0.8); MONOCYTES % (AUTO) 9.4 % (0.0-13.0); NEUTROPHILS # (AUTO) 2.8 x10^3/uL (2.2-4.8); NEUTROPHILS % (AUTO) 69.6 % (42.0-75.0); PLATELET COUNT 217 X10^3/uL (150.0-450.0); RED BLOOD COUNT 2.66 X10^6/uL (3.5-5.4); RED CELL DISTRIBUTION WIDTH 14.2 % (11.6-16.5); WHITE BLOOD COUNT 4.1 X10^3/uL (3.6-10.0)
[2018-04-19 05:24] LABS: ALANINE AMINOTRANSFERASE 22 Units/L (12-78); ALBUMIN 2.2 g/dL (3.4-5.0); ALKALINE PHOSPHATASE 74 Units/L (46-116); ASPARTATE AMINO TRANSFERASE 12 Units/L (15-37); BLOOD UREA NITROGEN 17 mg/dL (7-18); CARBON DIOXIDE 23.8 mmol/L (21-32); CHLORIDE 109 mmol/L (98-107); COR CA(FOR HYPOALB) 9.4 mg/dL (8.5-10.1); CREATININE 1.29 mg/dL (0.55-1.02); SODIUM 142 mmol/L (136-145); TOTAL PROTEIN 5.8 g/dL (6.4-8.2); eGFR NON BLACK RACES 42 (>60)
[2018-04-19] MEDS: NS 1000 ML 1,000 ML IV SCH (05:36)
[2018-04-19] MEDS: ZOSYN VIAL 2.25 GRAMS 2.25 G in NS 100 ML IV + SPIKE MINIBAG* 100 ML IV SCH ×3 (05:37→21:00)
[2018-04-19] MEDS: CARAFATE ORAL SUSP PO SCH ×4 (05:45→20:16)
[2018-04-19] MEDS: DUONEB 0.5 MG/3 MG NEB SCH ×4 (09:16→20:17)
--- NOTE | 2018-04-19 10:06 | RAD ---
Chest, two views Indication: Shortness of breath, fever Comparison: 04/18/2018 Findings: Small bilateral pleural effusions are not significantly changed. There is unchanged left basilar infiltrate/atelectasis. Right basilar airspace disease is improving. The upper lungs are grossly clear. Mild cardiomegaly is stable. Impression: Stable small bilateral pleural effusions with unchanged left basilar airspace disease. Improving right basilar airspace disease. Reported By:
[2018-04-19] MEDS: FLONASE NASAL SPRAY ENOSTRIL SCH (10:17)
[2018-04-19] MEDS: DIFLUCAN 100 MG IV (MIX by PHARMACY)* 100 MG/50 ML BAG IV SCH (10:17)
[2018-04-19] MEDS: ZESTRIL TAB 5 MG PO SCH (10:18)
[2018-04-19] MEDS: ROBITUSSIN DM PO SCH ×4 (10:18→20:16)
[2018-04-19] MEDS: VITAMIN C PO SCH (10:19)
[2018-04-19] MEDS: DETROL LA 2 MG CAP EXT REL PO SCH (10:19)
[2018-04-19] MEDS: ASPIRIN EC 81 MG PO SCH (10:20)
[2018-04-19] MEDS: TAB-A-VITE PO SCH (10:20)
[2018-04-19] MEDS: PREDNISONE TAB 5 MG PO SCH (10:20)
[2018-04-19] MEDS: SYNTHROID 75 mcg TAB PO SCH (10:20)
[2018-04-19] MEDS: K-DUR TAB 20 MEQ PO SCH (10:21)
[2018-04-19] MEDS: BESIFLOXACIN OP SCH (10:58)
[2018-04-19] MEDS: OSCAL+D or CALTRATE+D PO SCH (11:34)
--- NOTE | 2018-04-19 12:26 | PCM.PROG ---
Progress Note - Progress Note for Day of Date of Exam: 04/19/18 - Subjective Subjective: 87 WF ER ADMISSION LAST NIGHT WITH NEAR SYNCOPE AND GENERALIZED WEAKNESS. PT'S HYPOKALEMIA RESOLVED, WBC 4.1 THIS AM, HGB 8.8 ANEMIA PANEL ORDERED. GENTLE HYDRATION, CXR WITH PNEUMONIA IMPROVING, ON IV ZOSYN AND RESP CONSULT. STOOL CULTURE NEGATIVE AT THIS TIME. MUCOMYST TO NEB SOLUTION - Past Medical Family Social History Past Med/Fam/Surg Hx: No changes since H&P Allergies: Allergies cephalexin Allergy (Verified 04/15/18 11:38) clarithromycin [From Biaxin] Allergy (Verified 04/15/18 11:38) - Review of Systems ROS: No change since H&P - Vital Signs and I&O's Vital Signs: Temperature 98.0 F Pulse Rate [Left] 66 Pulse Rate [Right Radial] 87 Pulse Rate 72 Respiratory Rate 18 Blood Pressure [Left Arm] 140/68 Blood Pressure [Right Arm] 145/64 Blood Pressure 151/67 O2 Sat by Pulse Oximetry 99 Intake and Output: Intake & Output 04/17/18 04/18/18 04/19/18 04/20/18 11:59 11:59 11:59 11:59 Intake Total 420 / 420 1620 / 1620 1787 / 1787 Output Total 500 / 500 1000 / 1000 Balance 420 / 420 1120 / 1120 787 / 787 - Physical Exam Oriented: Normal Eyes: Normal Ear: Normal Nose: Normal Throat: Normal Respiratory: Diminished Cardiovascular: Normal, Edema : Normal Auscultation: Bowel Sounds: Normal Tenderness: Normal Skin: Decreased [place]urg[place], Wound, Bruising Musculoskeletal: Normal Psychiatric: Anxiety Affect: Anxious Speech Pattern: Clear, Appropriate - Laboratory and Diagnostics Result Diagrams: 04/19/18 04:10 04/19/18 04:10 Labs: 04/18/18 07:51 Sputum - Expectorated Sputum Sputum Culture - Preliminary 04/18/18 07:51 Sputum - Expectorated Sputum - Final 04/16/18 05:53 Blood Blood Culture - Preliminary 04/16/18 05:53 Blood Blood Culture - Preliminary 04/16/18 17:43 Urine,Clean Catch Urine Culture - Final 04/15/18 13:57 Stool Stool Culture - Final 04/15/18 13:57 Stool - Final Laboratory WBC 4.1 X10^3/uL (3.6-10.0) 04/19/18 04:10 RBC 2.66 X10^6/uL (3.5-5.4) L 04/19/18 04:10 Hgb 8.8 g/dL (12.0-16.0) L 04/19/18 04:10 Hct 25.7 % (36.0-47.0) L 04/19/18 04:10 MCV 96.9 fL (80.0-100.0) 04/19/18 04:10 MCH 33.2 pg (27.0-34.0) 04/19/18 04:10 MCHC 34.3 g/dL (33.0-35.0) 04/19/18 04:10 RDW 14.2 % (11.6-16.5) 04/19/18 04:10 Plt Count 217 X10^3/uL (150.0-450.0) 04/19/18 04:10 Plt Count Comment Adequate (ADEQUATE) 04/17/18 04:20 MPV 8.9 fL (7.4-11.0) 04/19/18 04:10 Neut % (Auto) 69.6 % (42.0-75.0) 04/19/18 04:10 Lymph % (Auto) 15.7 % (21.0-51.0) L 04/19/18 04:10 [place] % (Auto) 9.4 % (0.0-13.0) 04/19/18 04:10 Eos % (Auto) 4.5 % (0.9-2.9) H 04/19/18 04:10 Baso % (Auto) 0.8 % (0.2-1.0) 04/19/18 04:10 Neut # (Auto) 2.8 x10^3/uL (2.2-4.8) 04/19/18 04:10 Lymph # (Auto) 0.6 X10^3/uL (1.3-2.9) L 04/19/18 04:10 [place] # (Auto) 0.4 x10^3/uL (0.3-0.8) 04/19/18 04:10 Eos # (Auto) 0.2 x10^3/uL (0.0-0.2) 04/19/18 04:10 Baso # (Auto) 0.0 X10^3/uL (0.0-0.1) 04/19/18 04:10 Absolute Nucleated RBC 0.0 /100WBC 04/19/18 04:10 Total Counted 100 04/17/18 04:20 Neutrophils % (Manual) 91 % (39-76) H 04/17/18 04:20 Band Neutrophils % 4 % (0-10) 04/17/18 04:20 Lymphocytes % (Manual) 2 % (13-43) L 04/17/18 04:20 Monocytes % (Manual) 2 % (4-9) L 04/17/18 04:20 Eosinophils % (Manual) 1 % (0-6) 04/17/18 04:20 Plt Morphology Comment Normal (NORMAL) 04/17/18 04:20 RBC Morphology Normal (NORMAL) 04/17/18 04:20 Sodium 142 mmol/L (136-145) 04/19/18 04:10 Corrected Sodium TNP 04/19/18 04:10 Potassium 4.3 mmol/L (3.5-5.1) 04/19/18 04:10 Chloride 109 mmol/L (98-107) H 04/19/18 04:10 Carbon Dioxide 23.8 mmol/L (21-32) 04/19/18 04:10 BUN 17 mg/dL (7-18) 04/19/18 04:10 Creatinine 1.29 mg/dL (0.55-1.02) H 04/19/18 04:10 Est GFR (MDRD) Af Amer 51 (>60) L 04/19/18 04:10 Est GFR (MDRD) Non-Af 42 (>60) L 04/19/18 04:10 Glucose 100 mg/dL (65-99) H 04/19/18 04:10 Calcium 8.0 mg/dL (8.5-10.1) L 04/19/18 04:10 Corrected Calcium 9.4 mg/dL (8.5-10.1) 04/19/18 04:10 Magnesium 2.9 mg/dL (1.7-2.9) 04/17/18 04:20 Total Bilirubin 0.20 mg/dL (0.2-1.0) 04/19/18 04:10 AST 12 Units/L (15-37) L 04/19/18 04:10 ALT 22 Units/L (12-78) 04/19/18 04:10 Alkaline Phosphatase 74 Units/L (46-116) 04/19/18 04:10 Creatine Kinase 22 Units/L (26-192) L 04/16/18 04:54 CK-MB (CK-2) < 1.0 ng/mL (0-4.0) 04/16/18 04:54 CK/CKMB % Calc 4.6 % (<4) 04/16/18 04:54 Troponin I < 0.02 ng/mL (0-1.5) 04/16/18 04:54 Total Protein 5.8 g/dL (6.4-8.2) L 04/19/18 04:10 Albumin 2.2 g/dL (3.4-5.0) L 04/19/18 04:10 Globulin 3.6 g/dL (2.5-4.5) 04/19/18 04:10 Albumin/Globulin Ratio 0.6 Ratio (1.1-2.1) L 04/19/18 04:10 Amylase 97 Units/L (25-115) 04/15/18 12:17 Lipase 304 Units/L (73-393) 04/15/18 12:17 Specimen Type Clean catch urine 04/15/18 13:57 Urine Color Yellow (YELLOW) 04/15/18 13:57 Urine Appearance Clear (CLEAR) 04/15/18 13:57 Urine pH 5.0 (5.0 - 8.0) 04/15/18 13:57 Ur Specific [place] 1.010 (1.000-1.030) 04/15/18 13:57 Urine Protein Negative (NEGATIVE) 04/15/18 13:57 Urine Glucose (UA) Negative (NEGATIVE) 04/15/18 13:57 Urine Ketones Negative (NEGATIVE) 04/15/18 13:57 Urine Occult Blood Negative (NEGATIVE) 04/15/18 13:57 Urine Nitrite Negative (NEGATIVE) 04/15/18 13:57 Urine Bilirubin Negative (NEGATIVE) 04/15/18 13:57 Urine Urobilinogen Normal (NORMAL) 04/15/18 13:57 Ur Leukocyte Esterase Negative (NEGATIVE) 04/15/18 13:57 Stool Description 20g unformed dark br 04/15/18 13:57 Stool for White Cells Negative (NEGATIVE) 04/15/18 13:57 Stl C. diff Tox B Gene Negative (NEGATIVE) 04/15/18 13:57 Stl C. diff [id number] Negative (NEGATIVE) 04/15/18 13:57 Cryptosporid parvum Ag Negative (NEGATIVE) 04/15/18 13:57 Giardia lamblia Ag Negative (NEGATIVE) 04/15/18 13:57 - Plan (1) Hypokalemia Status: Acute Plan: GENTLE IV HYDRATION, I & OS. POTASSIUM REPLACEMENT, STOOL STUDIES NEGATIVE. LOMOTIL PRN DIARRHEA. CONTINUE PNEUMONIA PROTOCOL, IV ZOSYN, RESP TOILETING. PHYSICAL THERAPY, ANEMIA PANEL (2) Pneumonia Status: Acute Plan: RESP CONSULT, JET NEBS. SUPPLEMENTAL O2, IV ZOSYN, SPUTUM CULTURES COLLECTED ON ADMISSION (3) Cellulitis of leg, right Status: Acute (4) Near syncope Status: Acute (5) Generalized weakness Status: Acute Plan: HYDRATE, TREATMENT OF ACUTE ILLNESS (6) Diarrhea Status: Acute Qualifiers: Diarrhea type: unspecified type Qualified Code(s): R19.7 - Diarrhea, unspecified Plan: IMPROVED, CULTURES COLLECTED ON ADMISSION
[2018-04-19] MEDS ORDERED: LASIX IVP SCH (13:00)
[2018-04-19 14:05] LABS: IRON 79 ug/dL (50-175)
[2018-04-19] MEDS: HEMOCYTE-PLUS PO SCH (16:20)
[2018-04-19] MEDS ORDERED: PHARMACY CONSULT - DOSE _____ XX SCH (19:00)
[2018-04-19] MEDS: KLONOPIN TAB 0.5 MG PO PRN (20:16)
[2018-04-19] MEDS: LIPITOR TAB 10 MG PO SCH (20:16)
[2018-04-20] MEDS: ZOSYN VIAL 2.25 GRAMS 2.25 G in NS 100 ML IV + SPIKE MINIBAG* 100 ML IV SCH (05:23)
[2018-04-20] MEDS: CARAFATE ORAL SUSP PO SCH (05:29)
[2018-04-20 05:41] LABS: BASOPHILS % (AUTO) 0.5 % (0.2-1.0); EOSINOPHILS # (AUTO) 0.2 x10^3/uL (0.0-0.2); HEMATOCRIT 26.9 % (36.0-47.0); HEMOGLOBIN 9.2 g/dL (12.0-16.0); LYMPHOCYTES % (AUTO) 15.4 % (21.0-51.0); MEAN CORPUSCULAR HEMOGLOBIN 33.5 pg (27.0-34.0); MEAN CORPUSCULAR HGB CONC 34.3 g/dL (33.0-35.0); MEAN CORPUSCULAR VOLUME 97.7 fL (80.0-100.0); MEAN PLATELET VOLUME 8.4 fL (7.4-11.0); MONOCYTES # (AUTO) 0.5 x10^3/uL (0.3-0.8); MONOCYTES % (AUTO) 8.2 % (0.0-13.0); NEUTROPHILS # (AUTO) 4.6 x10^3/uL (2.2-4.8); NEUTROPHILS % (AUTO) 72.9 % (42.0-75.0); PLATELET COUNT 218 X10^3/uL (150.0-450.0); RED BLOOD COUNT 2.76 X10^6/uL (3.5-5.4); RED CELL DISTRIBUTION WIDTH 14.4 % (11.6-16.5); WHITE BLOOD COUNT 6.3 X10^3/uL (3.6-10.0)
[2018-04-20 05:49] LABS: ALANINE AMINOTRANSFERASE 24 Units/L (12-78); ALBUMIN 2.4 g/dL (3.4-5.0); ALKALINE PHOSPHATASE 81 Units/L (46-116); ASPARTATE AMINO TRANSFERASE 16 Units/L (15-37); BLOOD UREA NITROGEN 18 mg/dL (7-18); CALCIUM 8.5 mg/dL (8.5-10.1); CARBON DIOXIDE 24.7 mmol/L (21-32); CHLORIDE 107 mmol/L (98-107); COR CA(FOR HYPOALB) 9.8 mg/dL (8.5-10.1); CREATININE 1.16 mg/dL (0.55-1.02); SODIUM 143 mmol/L (136-145); TOTAL PROTEIN 6.2 g/dL (6.4-8.2); eGFR NON BLACK RACES 47 (>60)
[2018-04-20] MEDS: NS 1000 ML 1,000 ML IV SCH ×2 (07:02→08:57)
[2018-04-20] MEDS: ROBITUSSIN DM PO SCH (08:57)
[2018-04-20] MEDS: PREDNISONE TAB 5 MG PO SCH (08:58)
[2018-04-20] MEDS: ZESTRIL TAB 5 MG PO SCH (08:58)
[2018-04-20] MEDS: HEMOCYTE-PLUS PO SCH (08:58)
[2018-04-20] MEDS: TAB-A-VITE PO SCH (08:59)
[2018-04-20] MEDS: DETROL LA 2 MG CAP EXT REL PO SCH (08:59)
[2018-04-20] MEDS: SYNTHROID 75 mcg TAB PO SCH (08:59)
[2018-04-20] MEDS: ASPIRIN EC 81 MG PO SCH (08:59)
[2018-04-20] MEDS: DUONEB 0.5 MG/3 MG NEB SCH (09:00)
[2018-04-20] MEDS: VITAMIN C PO SCH (09:00)
[2018-04-20] MEDS: K-DUR TAB 20 MEQ PO SCH (09:00)
[2018-04-20] MEDS: OSCAL+D or CALTRATE+D PO SCH (09:00)
[2018-04-20] MEDS ORDERED: DIFLUCAN PO SCH (09:00)
[2018-04-20] MEDS: BESIFLOXACIN OP SCH (09:07)
[2018-04-20] MEDS: FLONASE NASAL SPRAY ENOSTRIL SCH (09:07)
[2018-04-20 09:19] VITALS: BP 152/74
[2018-04-20] MEDS ORDERED: VIBRAMYCIN PO SCH (10:00)
[2018-05-04] MEDS ORDERED: IBANDRONATE 150 MG PO SCH (06:00)
--- NOTE | 2018-05-05 15:41 | PCM.DCPLAN ---
Discharge Summary - Admission Date Date of Admission: 04/17/18 - Discharge Date Discharge Date: 04/20/18 - Admission Diagnoses (1) Cellulitis of leg, right Status: Acute (2) Generalized weakness Status: Acute (3) Near syncope Status: Acute (4) Pneumonia Status: Acute - Discharge Diagnoses Discharge Diagnosis: SAME ADMISSION DIAGNOSIS - Discharge Medications Discharge Medications: Home Medication List [place] 1 drp OPHTHALMIC (EYE) DAILY 04/15/18 [History] Caltrate 600 + D 2 tab PO DAILY 04/15/18 [History] Centrum Silver 1 tab PO DAILY 04/15/18 [History] ascorbic acid (vitamin C) [Vitamin C] 1,000 mg PO DAILY 04/15/18 [History] aspirin [Aspir-81] 81 mg PO DAILY 04/15/18 [History] atorvastatin 10 mg PO HS 04/15/18 [History] clonazepam 0.5 mg PO PRN PRN 04/15/18 [History] fluticasone [Flonase Allergy Relief] 1 spray INTRANASAL DAILY 04/15/18 [History] furosemide [Lasix] 20 mg PO DAILY PRN 04/15/18 [History] garlic 1 mg PO DAILY 04/15/18 [History] ibandronate 150 mg MONTHLY 04/15/18 [History] levothyroxine 75 mcg PO DAILY 04/15/18 [History] lisinopril 2.5 mg PO DAILY 04/15/18 [History] prednisone 5 mg PO DAILY 04/15/18 [History] sulfamethoxazole-trimethoprim [Bactrim DS] 800 mg PO BID 04/15/18 [History] tolterodine 2 mg PO DAILY 04/15/18 [History] albuterol sulfate 1.25 mg INHALATION QID PRN 30 Days #360 ml 04/20/18 [Rx] doxycycline hyclate [Vibramycin] 100 mg PO BID #20 cap 04/20/18 [Rx] Prescriptions: albuterol sulfate ROWENA TRUJILLO doxycycline hyclate [Vibramycin] [facility] - Hospital Course Vital Signs: Temperature 97.8 F Pulse Rate [Left] 65 Pulse Rate [Right Radial] 87 Pulse Rate 84 Respiratory Rate 20 Blood Pressure [Left Arm] 152/74 Blood Pressure [Right Arm] 145/64 Blood Pressure 151/67 O2 Sat by Pulse Oximetry 94 Latest Lab Results: Laboratory Last Values WBC 6.3 X10^3/uL (3.6-10.0) 04/20/18 05:20 RBC 2.76 X10^6/uL (3.5-5.4) L 04/20/18 05:20 Hgb 9.2 g/dL (12.0-16.0) L 04/20/18 05:20 Hct 26.9 % (36.0-47.0) L 04/20/18 05:20 MCV 97.7 fL (80.0-100.0) 04/20/18 05:20 MCH 33.5 pg (27.0-34.0) 04/20/18 05:20 MCHC 34.3 g/dL (33.0-35.0) 04/20/18 05:20 RDW 14.4 % (11.6-16.5) 04/20/18 05:20 Plt Count 218 X10^3/uL (150.0-450.0) 04/20/18 05:20 Plt Count Comment Adequate (ADEQUATE) 04/17/18 04:20 MPV 8.4 fL (7.4-11.0) 04/20/18 05:20 Neut % (Auto) 72.9 % (42.0-75.0) 04/20/18 05:20 Lymph % (Auto) 15.4 % (21.0-51.0) L 04/20/18 05:20 [place] % (Auto) 8.2 % (0.0-13.0) 04/20/18 05:20 Eos % (Auto) 3.0 % (0.9-2.9) H 04/20/18 05:20 Baso % (Auto) 0.5 % (0.2-1.0) 04/20/18 05:20 Neut # (Auto) 4.6 x10^3/uL (2.2-4.8) 04/20/18 05:20 Lymph # (Auto) 1.0 X10^3/uL (1.3-2.9) L 04/20/18 05:20 [place] # (Auto) 0.5 x10^3/uL (0.3-0.8) 04/20/18 05:20 Eos # (Auto) 0.2 x10^3/uL (0.0-0.2) 04/20/18 05:20 Baso # (Auto) 0.0 X10^3/uL (0.0-0.1) 04/20/18 05:20 Absolute Nucleated RBC 0.0 /100WBC 04/20/18 05:20 Total Counted 100 04/17/18 04:20 Neutrophils % (Manual) 91 % (39-76) H 04/17/18 04:20 Band Neutrophils % 4 % (0-10) 04/17/18 04:20 Lymphocytes % (Manual) 2 % (13-43) L 04/17/18 04:20 Monocytes % (Manual) 2 % (4-9) L 04/17/18 04:20 Eosinophils % (Manual) 1 % (0-6) 04/17/18 04:20 Plt Morphology Comment Normal (NORMAL) 04/17/18 04:20 RBC Morphology Normal (NORMAL) 04/17/18 04:20 Sodium 143 mmol/L (136-145) 04/20/18 05:20 Corrected Sodium TNP 04/20/18 05:20 Potassium 4.2 mmol/L (3.5-5.1) 04/20/18 05:20 Chloride 107 mmol/L (98-107) 04/20/18 05:20 Carbon Dioxide 24.7 mmol/L (21-32) 04/20/18 05:20 BUN 18 mg/dL (7-18) 04/20/18 05:20 Creatinine 1.16 mg/dL (0.55-1.02) H 04/20/18 05:20 Est GFR (MDRD) Af Amer 57 (>60) L 04/20/18 05:20 Est GFR (MDRD) Non-Af 47 (>60) L 04/20/18 05:20 Glucose 92 mg/dL (65-99) 04/20/18 05:20 POC Glucose (mg/dL) 100 mg/dL (65-99) H 04/19/18 11:56 Calcium 8.5 mg/dL (8.5-10.1) 04/20/18 05:20 Corrected Calcium 9.8 mg/dL (8.5-10.1) 04/20/18 05:20 Magnesium 2.9 mg/dL (1.7-2.9) 04/17/18 04:20 Iron 79 ug/dL (50-175) 04/19/18 13:05 Transferrin 184 mg/dL (202-364) L 04/19/18 13:05 Ferritin 275 ng/mL (8-252) H 04/19/18 13:05 Total Bilirubin 0.20 mg/dL (0.2-1.0) 04/20/18 05:20 AST 16 Units/L (15-37) 04/20/18 05:20 ALT 24 Units/L (12-78) 04/20/18 05:20 Alkaline Phosphatase 81 Units/L (46-116) 04/20/18 05:20 Creatine Kinase 22 Units/L (26-192) L 04/16/18 04:54 CK-MB (CK-2) < 1.0 ng/mL (0-4.0) 04/16/18 04:54 CK/CKMB % Calc 4.6 % (<4) 04/16/18 04:54 Troponin I < 0.02 ng/mL (0-1.5) 04/16/18 04:54 Total Protein 6.2 g/dL (6.4-8.2) L 04/20/18 05:20 Albumin 2.4 g/dL (3.4-5.0) L 04/20/18 05:20 Globulin 3.8 g/dL (2.5-4.5) 04/20/18 05:20 Albumin/Globulin Ratio 0.6 Ratio (1.1-2.1) L 04/20/18 05:20 Amylase 97 Units/L (25-115) 04/15/18 12:17 Lipase 304 Units/L (73-393) 04/15/18 12:17 Vitamin B12 1141 pg/mL (193-986) H 04/19/18 13:05 Folate > 20.0 ng/mL (>8.6) 04/19/18 13:05 Specimen Type Clean catch urine 04/15/18 13:57 Urine Color Yellow (YELLOW) 04/15/18 13:57 Urine Appearance Clear (CLEAR) 04/15/18 13:57 Urine pH 5.0 (5.0 - 8.0) 04/15/18 13:57 Ur Specific [place] 1.010 (1.000-1.030) 04/15/18 13:57 Urine Protein Negative (NEGATIVE) 04/15/18 13:57 Urine Glucose (UA) Negative (NEGATIVE) 04/15/18 13:57 Urine Ketones Negative (NEGATIVE) 04/15/18 13:57 Urine Occult Blood Negative (NEGATIVE) 04/15/18 13:57 Urine Nitrite Negative (NEGATIVE) 04/15/18 13:57 Urine Bilirubin Negative (NEGATIVE) 04/15/18 13:57 Urine Urobilinogen Normal (NORMAL) 04/15/18 13:57 Ur Leukocyte Esterase Negative (NEGATIVE) 04/15/18 13:57 Stool Description 20g unformed dark br 04/15/18 13:57 Stool for White Cells Negative (NEGATIVE) 04/15/18 13:57 Stl C. diff Tox B Gene Negative (NEGATIVE) 04/15/18 13:57 Stl C. diff [id number] Negative (NEGATIVE) 04/15/18 13:57 Cryptosporid parvum Ag Negative (NEGATIVE) 04/15/18 13:57 Giardia lamblia Ag Negative (NEGATIVE) 04/15/18 13:57 Hospital Course: 87 WF ER ADMISSION WITH CO WEAKNESS, FALL WITH KNEE INJURY AND DIARRHEA. PT WAS RECENTLY IN [facility] FOR RLE CELLULITIS, PNEUMONIA AND WEAKNESS AND WAS SWING BED FOR 5 DAYS AND ASKED TO GO HOME. PT HAD CT HEAD ON ER VISIT WITHOUT ACUTE FINDINGS. PT HAD HYPOKALEMIA AND WBC 13.5. PATIENT RECEIVED IV ANTIBIOTICS, THERAPY AND LABS WERE MONITORED. SYMPTOMS IMPROVED AND PATIENT WAS DISCHARGED HOME WITH HOME HEALTH. - Discharge Plan Disposition: HOME HEALTH SERVICE Condition: Stable Prescriptions: albuterol sulfate 1.25 mg INHALATION QID PRN 30 Days #360 ml PRN Reason: Shortness Of Breath doxycycline hyclate [Vibramycin] 100 mg PO BID #20 cap - Follow ups/Referrals Follow ups/Referrals: [facility] [Other] ARNULFO CATHERINE [Primary Care Provider] - 3 days - Instructions Instructions: Antibiotic Medicine, Adult, [id number], Hyponatremia, [id number], Weakness, [id number], Doxycycline tablets or capsules, Community-Acquired Pneumonia, Adult, [id number] Additional Instructions: Prescriptions: 1) Doxycycline 100mg take 1 by mouth twice a day. 2) Albuterol nebulizer treatments use 1 ampule four times a day as needed for shortness of breath. Prescriptions sent to [facility]. Continue other home medications as prescribed. Diet as tolerated. Activity as tolerated. Follow up with [facility] / Dr. Trujillo in 1 week. The nurse with [facility] will call on Sunday morning and plan on visit for Sunday.
== END 2018-04-20 12:00 | disposition home health service (06) | DRG 178 ==
LOC: MED/SURG 11:35 → ER 11:35 → MED/SURG 17:20
PROVIDERS: ADMIT Internal Medicine; ATTEND Internal Medicine
DX: R53.1 Weakness; R94.31 Abnormal electrocardiogram [ECG] [EKG]; E03.8 Other specified hypothyroidism; K21.9 Gastro-esophageal reflux disease without esophagitis; M25.561 Pain in right knee; R19.7 Diarrhea, unspecified; R06.02 Shortness of breath; R26.89 Other abnormalities of gait and mobility; R94.4 Abnormal results of kidney function studies; L03.115 Cellulitis of right lower limb; J15.6 Pneumonia due to other Gram-negative bacteria; M25.562 Pain in left knee; J91.8 Pleural effusion in other conditions classified elsewhere; F41.8 Other specified anxiety disorders; E87.6 Hypokalemia; K80.80 Other cholelithiasis without obstruction; Z91.81 History of falling; R55 Syncope and collapse
CPT/HCPCS: 36415; 70450; 71010; 71020; 71045; 71046; 71250; 73560; 74176; 80053; 81003; 82150; 82550; 82553; 82607; 82728; 82746; 83540; 83630; 83690; 83735; 84466; 84484; 85025; 87040; 87045; 87070; 87077; 87086; 87186; 87205; 87328; 87329; 87427; 87449; 87493; 87899; 93005; 93010; 94640; 94669; 94760; 96365; 96367; 97110; 97116; 97163; 97167; 97530; 97535; 99284; A4222; G0378; J1450; J2543; J2550; J3475; J3490; J7030; J7050; J7512; J7608; J7620; J8499

== ENCOUNTER 2018-09-22 19:00 | Inpatient (IN) ==
--- NOTE | 2018-09-22 20:05 | DR.DIZZY ---
HPI Time seen Time Seen by Provider: 09/22/18 19:37 PCP Primary Care Physician: ADAM SHETTY Complaint Chief Complaint Doctor Comments: Patient presents with complaint that she can not take the Bactrim given her on yesterday for UTI, makes her sick. No other antibiotic po that she can take. Chief Complaint:: STATES SHE CAME TO THE ER YESTERDAY AND WAS DIAGNOSED WITH KIDNEY INFECTION. STATES SHE WAS STARTED ON AN ANTIBIOTIC AND HAS NOT BEEN ABLE TO KEEP IT OR ANYTHING DOWN. STATES SHE HAS BEEN NAUSEATED. Source History Provided: Patient Mode of Arrival Mode of Arrival: Wheelchair Timing Onset of Chief Complaint: 09/21/18 Context Stroke Symptoms: None PMH PMH Past Medical History: Yes Past Medical History: Anxiety, GERD and Hypothyroidism Past Surgical History: Yes Surgical History: Hysterectomy, Ortho Surgery and Other Family History History of Family Medical Conditions: Yes Family Medical History: Diabetes Mellitus, Cancer and [place] Social History Does patient currently use any type of tobacco product: No Have you used tobacco products in the last 12 months: No Type of Tobacco Use: None Does any household member use tobacco: No Alcohol Use: None Do you use any recreational Drugs:: No Lives With: Alone Lives Where: Home infectious screening In the last 2 months have you had wt loss of >10#?: NO Have you had fever, night sweats or hemotysis?: No Have you traveled outside the country in the last 6 months?: No Isolation: Standard ROS Review of Systems ENTM: No Symptoms Reported Respiratoy: No Symptoms Reported Gastrointestinal/Abdominal: No Symptoms Reported Neurological: No Symptoms Reported Musculoskeletal: No Symptoms Reported Integumentary: No Symptoms Reported and Rash (chronic lower extremity macular rash) Hematologic/Lymphatic: No Symptoms Reported Endocrine: No Symptoms Reported Psychiatric: No Symptoms Reported All Other Systems: Reviewed and Negative PE Vital Signs Vitals: Temperature 98.3 F Pulse Rate [Left Brachial] 71 Pulse Rate 78 Respiratory Rate 20 Blood Pressure [Left Arm] 130/59 Blood Pressure [Right Arm] 121/57 Blood Pressure 130/59 O2 Sat by Pulse Oximetry 98 General Limitations: No Limitations General Appearance: Alert and In No Apparent Distress Head Head Exam: Normal Inspection, Atraumatic and Normocephalic Eyes Eye exam: Normal Appearance, PERRL and EOMI Pupils: Regular, Round: Bilateral Sclera/Conjunctival: Normal Inspection: Bilateral Anterior Chamber: Normal Inspection: Bilateral Posterior Chamber: Deferred: Bilateral ENT ENT Exam: Normal Exam and Normal External Ear Exam Neck Neck Exam: Normal Inspection and Full ROM Chest Chest Inspection: Normal Inspection and Symmetric Chest Wall Rise Respiratory Respiratory Exam: Normal Lung Sounds Bilat Respiratory Exam: Bilateral: Clear to Auscultation Cardiovascular Cardiovascular Exam: Regular Rate and Normal Rhythm Rectal Rectal Exam: Deferred Extremeties Extremities Exam: Normal Inspection Back Back Exam: Normal Inspection Neurologic Neurological Exam: Alert, Oriented X3 and CN II-XII Intact Psychiatric Psychiatric Exam: Normal Affect, Normal Mood and Flat Affect Skin Skin Exam: Warm, Dry, Normal Color, Rash and Erythema (Bilateral macular rash lower extremity ? HS purpura) MDM Differential Diagnosis Differential Diagnosis: Other (UTI) COURSE Consultation Called: 19:57 Call Returned: 20:00 Consultation Comments: Dr. Strong agreed to admit his patient with a urinary tract infection not able to take the medically appropriate po medication because of size. ROR Labs Reviewed Laboratory Results Reviewed?: Yes Result Diagrams: 09/23/18 05:01 09/23/18 05:01 Laboratory: WBC 5.7 X10^3/uL (3.6-10.0) 09/23/18 05:01 RBC 3.31 X10^6/uL (3.5-5.4) L 09/23/18 05:01 Hgb 10.8 g/dL (12.0-16.0) L 09/23/18 05:01 Hct 31.7 % (36.0-47.0) L 09/23/18 05:01 MCV 95.8 fL (80.0-100.0) 09/23/18 05:01 MCH 32.5 pg (27.0-34.0) 09/23/18 05:01 MCHC 34.0 g/dL (33.0-35.0) 09/23/18 05:01 RDW 15.4 % (11.6-16.5) 09/23/18 05:01 Plt Count 146 X10^3/uL (150.0-450.0) L 09/23/18 05:01 MPV 8.4 fL (7.4-11.0) 09/23/18 05:01 Neut % (Auto) 82.7 % (42.0-75.0) H 09/23/18 05:01 Lymph % (Auto) 7.3 % (21.0-51.0) L 09/23/18 05:01 [place] % (Auto) 6.4 % (0.0-13.0) 09/23/18 05:01 Eos % (Auto) 3.0 % (0.9-2.9) H 09/23/18 05:01 Baso % (Auto) 0.6 % (0.2-1.0) 09/23/18 05:01 Neut # (Auto) 4.7 x10^3/uL (2.2-4.8) 09/23/18 05:01 Lymph # (Auto) 0.4 X10^3/uL (1.3-2.9) L 09/23/18 05:01 [place] # (Auto) 0.4 x10^3/uL (0.3-0.8) 09/23/18 05:01 Eos # (Auto) 0.2 x10^3/uL (0.0-0.2) 09/23/18 05:01 Baso # (Auto) 0.0 X10^3/uL (0.0-0.1) 09/23/18 05:01 Absolute Nucleated RBC 0.0 /100WBC 09/23/18 05:01 Sodium 138 mmol/L (136-145) 09/23/18 05:01 Corrected Sodium TNP 09/23/18 05:01 Potassium 4.4 mmol/L (3.5-5.1) 09/23/18 05:01 Chloride 105 mmol/L (98-107) 09/23/18 05:01 Carbon Dioxide 25.5 mmol/L (21-32) 09/23/18 05:01 BUN 16 mg/dL (7-18) 09/23/18 05:01 Creatinine 1.03 mg/dL (0.55-1.02) H 09/23/18 05:01 Est GFR (MDRD) Af Amer > 60 (>60) 09/23/18 05:01 Est GFR (MDRD) Non-Af 54 (>60) L 09/23/18 05:01 Glucose 100 mg/dL (65-99) H 09/23/18 05:01 Calcium 8.5 mg/dL (8.5-10.1) 09/23/18 05:01 Corrected Calcium 9.6 mg/dL (8.5-10.1) 09/23/18 05:01 Total Bilirubin 0.40 mg/dL (0.2-1.0) 09/23/18 05:01 AST 20 Units/L (15-37) 09/23/18 05:01 ALT 22 Units/L (12-78) 09/23/18 05:01 Alkaline Phosphatase 46 Units/L (46-116) 09/23/18 05:01 Total Protein 5.9 g/dL (6.4-8.2) L 09/23/18 05:01 Albumin 2.6 g/dL (3.4-5.0) L 09/23/18 05:01 Globulin 3.3 g/dL (2.5-4.5) 09/23/18 05:01 Albumin/Globulin Ratio 0.8 Ratio (1.1-2.1) L 09/23/18 05:01 Ethyl Alcohol mg/dL Cancelled 09/22/18 20:08 Roshan negative cocci sensitive to Zosyn Diagnosis Discharge Problem: Acute UTI ADDITIONAL NOTES Additional Notes Additional Notes: Patient admitted to Dr. Lee services s/p consultation.
[2018-09-22 20:14] LABS: BASOPHILS % (AUTO) 0.5 % (0.2-1.0); EOSINOPHILS # (AUTO) 0.1 x10^3/uL (0.0-0.2); EOSINOPHILS % (AUTO) 1.8 % (0.9-2.9); HEMATOCRIT 35.3 % (36.0-47.0); HEMOGLOBIN 11.9 g/dL (12.0-16.0); LYMPHOCYTES # (AUTO) 0.3 X10^3/uL (1.3-2.9); LYMPHOCYTES % (AUTO) 4.1 % (21.0-51.0); MEAN CORPUSCULAR HEMOGLOBIN 31.9 pg (27.0-34.0); MEAN CORPUSCULAR HGB CONC 33.8 g/dL (33.0-35.0); MEAN CORPUSCULAR VOLUME 94.4 fL (80.0-100.0); MEAN PLATELET VOLUME 7.8 fL (7.4-11.0); MONOCYTES # (AUTO) 0.4 x10^3/uL (0.3-0.8); NEUTROPHILS # (AUTO) 6.8 x10^3/uL (2.2-4.8); NEUTROPHILS % (AUTO) 88.6 % (42.0-75.0); PLATELET COUNT 158 X10^3/uL (150.0-450.0); RED BLOOD COUNT 3.73 X10^6/uL (3.5-5.4); RED CELL DISTRIBUTION WIDTH 15.5 % (11.6-16.5); WHITE BLOOD COUNT 7.7 X10^3/uL (3.6-10.0)
[2018-09-22 20:26] LABS: ALANINE AMINOTRANSFERASE 22 Units/L (12-78); ALBUMIN 3.1 g/dL (3.4-5.0); ALKALINE PHOSPHATASE 55 Units/L (46-116); ASPARTATE AMINO TRANSFERASE 19 Units/L (15-37); BLOOD UREA NITROGEN 21 mg/dL (7-18); CARBON DIOXIDE 26.8 mmol/L (21-32); CHLORIDE 98 mmol/L (98-107); COR CA(FOR HYPOALB) 9.7 mg/dL (8.5-10.1); CREATININE 1.17 mg/dL (0.55-1.02); SODIUM 132 mmol/L (136-145); TOTAL PROTEIN 6.9 g/dL (6.4-8.2); eGFR NON BLACK RACES 47 (>60)
[2018-09-22] MEDS ORDERED: ZOSYN VIAL 3.375 GRAMS IV ONE (20:44)
[2018-09-22] MEDS ORDERED: NS 100 ML IV + SPIKE MINIBAG* 100 ML ONE (20:45)
[2018-09-22] MEDS ORDERED: ZOSYN VIAL 3.375 GRAMS 3.375 G in NS 100 ML IV + SPIKE MINIBAG* 100 ML IV ONE (20:45)
[2018-09-22] MEDS ORDERED: NS 1000 ML 1,000 ML ONE (20:48)
[2018-09-22] MEDS: NS 1000 ML 1,000 ML IV SCH (20:56)
[2018-09-22] MEDS ORDERED: LOMOTIL PO PRN (21:25)
[2018-09-22] MEDS ORDERED: MAALOX or MYLANTA PO PRN (21:35)
[2018-09-22] MEDS ORDERED: ZOSYN VIAL 2.25 GRAMS 2.25 G in NS 100 ML IV + SPIKE MINIBAG* 100 ML IV SCH (22:00)
[2018-09-22] MEDS ORDERED: TOBREX DROPS OP SCH (22:00)
[2018-09-22 22:05] VITALS: BMI 19.2
[2018-09-22] MEDS: MICRO K EXTEN CAP 10 MEQ PO SCH (22:18)
[2018-09-23 05:21] LABS: BASOPHILS % (AUTO) 0.6 % (0.2-1.0); EOSINOPHILS # (AUTO) 0.2 x10^3/uL (0.0-0.2); HEMATOCRIT 31.7 % (36.0-47.0); HEMOGLOBIN 10.8 g/dL (12.0-16.0); LYMPHOCYTES # (AUTO) 0.4 X10^3/uL (1.3-2.9); LYMPHOCYTES % (AUTO) 7.3 % (21.0-51.0); MEAN CORPUSCULAR HEMOGLOBIN 32.5 pg (27.0-34.0); MEAN CORPUSCULAR VOLUME 95.8 fL (80.0-100.0); MEAN PLATELET VOLUME 8.4 fL (7.4-11.0); MONOCYTES # (AUTO) 0.4 x10^3/uL (0.3-0.8); MONOCYTES % (AUTO) 6.4 % (0.0-13.0); NEUTROPHILS # (AUTO) 4.7 x10^3/uL (2.2-4.8); NEUTROPHILS % (AUTO) 82.7 % (42.0-75.0); PLATELET COUNT 146 X10^3/uL (150.0-450.0); RED BLOOD COUNT 3.31 X10^6/uL (3.5-5.4); RED CELL DISTRIBUTION WIDTH 15.4 % (11.6-16.5); WHITE BLOOD COUNT 5.7 X10^3/uL (3.6-10.0)
[2018-09-23] MEDS: ZOSYN VIAL 2.25 GRAMS 2.25 G in NS 100 ML IV + SPIKE MINIBAG* 100 ML IV SCH ×3 (05:30→14:49)
[2018-09-23] MEDS: NS 1000 ML 1,000 ML IV SCH ×4 (05:31→21:59)
[2018-09-23 05:39] LABS: ALANINE AMINOTRANSFERASE 22 Units/L (12-78); ALBUMIN 2.6 g/dL (3.4-5.0); ALKALINE PHOSPHATASE 46 Units/L (46-116); ASPARTATE AMINO TRANSFERASE 20 Units/L (15-37); BLOOD UREA NITROGEN 16 mg/dL (7-18); CALCIUM 8.5 mg/dL (8.5-10.1); CARBON DIOXIDE 25.5 mmol/L (21-32); CHLORIDE 105 mmol/L (98-107); COR CA(FOR HYPOALB) 9.6 mg/dL (8.5-10.1); CREATININE 1.03 mg/dL (0.55-1.02); SODIUM 138 mmol/L (136-145); TOTAL PROTEIN 5.9 g/dL (6.4-8.2); eGFR NON BLACK RACES 54 (>60)
[2018-09-23] MEDS: SYNTHROID 50 mcg TAB PO SCH (06:08)
[2018-09-23] MEDS ORDERED: SYNTHROID 75 mcg TAB PO SCH (09:00)
[2018-09-23] MEDS ORDERED: PEG PROPYLENE GLYCOL OP SCH (09:00)
[2018-09-23] MEDS: ARTIFICIAL TEARS DROPS OP SCH (09:02)
[2018-09-23] MEDS: ASPIRIN EC 81 MG PO SCH (09:06)
[2018-09-23] MEDS: MICRO K EXTEN CAP 10 MEQ PO SCH (09:06)
[2018-09-23] MEDS: PREDNISONE TAB 5 MG PO SCH (09:06)
[2018-09-23] MEDS: ESOMEPRAZOLE MAGNESIUM PO SCH (09:09)
[2018-09-23] MEDS: LOVENOX INJ 40 MG SYR SC SCH (12:46)
--- NOTE | 2018-09-23 13:32 | DR.H&P ---
H&P - History & Physical for Day of: H&P Date: 09/22/18 - Chief Complaint Chief Complaint: weakness, UTI - History of Present Illness History of Present Illness: 87 WF ER ADMISSION AFTER PRESENTING WITH CO WEAKNESS AND UTI. PT WAS SEEN IN ER WITH CO UTI, PT WAS STARTED ON PO ANTIBIOTIC AND HAD NAUSEA AND UNABLE TO EAT. FAMILY REPORTS PT HAS BEEN VERY WEAK AND CANNOT WALK. PT NA 132 IN ER. URINE CULTURE + GRAM NEG RODS. PT ADMITTED FOR GENTLE IV HYDRATION, IV ATBX. - Past Medical History Past Medical History: Anxiety, Hypothyroidism, GERD Additional Medical History: ANDRAL GL[facility] INSUFFICIENCY - Past Surgical History Surgical History: Hysterectomy, Ortho Surgery, Other - Family History Family Medical History: Diabetes Mellitus, Cancer, [place] - Social History Does patient currently use any type of tobacco product: No Have you used tobacco products in the last 12 months: No Type of Tobacco Use: None Does any household member use tobacco: No Alcohol Use: None - Medications Home Medications: cephalexin Allergy (Verified 09/21/18 09:09) clarithromycin [From Biaxin] Allergy (Verified 09/21/18 09:09) CONTINUE taking the following medications atorvastatin 10 mg PO DAILY 09/22/18 [History] clonazepam [Klonopin] 1 mg PO HS 09/22/18 [History] lisinopril 2.5 mg PO DAILY 09/22/18 [History] - Review of Systems Constitutional: Weakness Eyes: No Symptoms Reported ENT: No Symptoms Reported Respiratory: No Symptoms Reported Cardiovascular: No Symptoms Reported Gastrointestinal: Nausea Genitourinary: Dysuria, Frequency Musculoskeletal: No Symptoms Reported Skin: No Symptoms Reported Neurological: Weakness - Physical Exam Vital Signs: Temperature 98.5 F Pulse Rate [Left Brachial] 61 Pulse Rate 78 Respiratory Rate 18 Blood Pressure [Left Arm] 130/59 Blood Pressure [Right Arm] 124/59 Blood Pressure 130/59 O2 Sat by Pulse Oximetry 96 Oriented: Normal Eyes: Normal Ear: Normal Nose: Normal Throat: Normal Respiratory: RLL Diminished, LLL Diminished Cardiovascular: Normal : Normal Auscultation: Bowel Sounds: Normal Palpation: Normal Tenderness: Normal Skin: Decreased Turgur Musculoskeletal: Back:Lumbar Psychiatric: Anxiety Affect: Anxious Speech Pattern: Clear, Appropriate - Allergies Allergies/Adverse Reactions: Allergies Allergy/AdvReac Type Severity Reaction Status Date / Time cephalexin Allergy Verified 09/21/18 09:09 clarithromycin [From Biaxin] Allergy Verified 09/21/18 09:09
--- NOTE | 2018-09-23 13:37 | PCM.PROG ---
Progress Note - Progress Note for Day of Date of Exam: 09/23/18 - Subjective Subjective: 87 WF ER ADMISSION WITH UTI, HYPONATREMIA. PT HAD UA WITH GRAM - RODS, CURRENTLY ON IV ZOSYN. PT NA IMPROVED THIS AM TO 138, BUN 16, CREAT 1.02 WITH GENTLE IV HYDRATION. URINE CULTURE SENSATIVITY RESULTED ECOLI, PT STARTED ON CIPRO 400MG IV. ENCOURAGED ORAL HYDRATION. - Past Medical Family Social History Past Med/Fam/Surg Hx: No changes since H&P Allergies: Allergies cephalexin Allergy (Verified 09/21/18 09:09) clarithromycin [From Biaxin] Allergy (Verified 09/21/18 09:09) - Review of Systems ROS: No change since H&P - Vital Signs and I&O's Vital Signs: Temperature 98.5 F Pulse Rate [Left Brachial] 61 Pulse Rate 78 Respiratory Rate 18 Blood Pressure [Left Arm] 130/59 Blood Pressure [Right Arm] 124/59 Blood Pressure 130/59 O2 Sat by Pulse Oximetry 96 Intake and Output: Intake & Output 09/21/18 09/22/18 09/23/18 09/24/18 11:59 11:59 11:59 11:59 Intake Total 1060 / 1060 Balance 1060 / 1060 - Physical Exam Oriented: Normal Eyes: Normal Ear: Normal Nose: Normal Throat: Normal Respiratory: Diminished Cardiovascular: Normal : Normal Auscultation: Bowel Sounds: Normal Tenderness: Normal Skin: Decreased Turgur Musculoskeletal: Back:Lumbar Psychiatric: Anxiety Affect: Anxious Speech Pattern: Clear, Appropriate - Laboratory and Diagnostics Result Diagrams: 09/23/18 05:01 09/23/18 05:01 Labs: Laboratory WBC 5.7 X10^3/uL (3.6-10.0) 09/23/18 05:01 RBC 3.31 X10^6/uL (3.5-5.4) L 09/23/18 05:01 Hgb 10.8 g/dL (12.0-16.0) L 09/23/18 05:01 Hct 31.7 % (36.0-47.0) L 09/23/18 05:01 MCV 95.8 fL (80.0-100.0) 09/23/18 05:01 MCH 32.5 pg (27.0-34.0) 09/23/18 05:01 MCHC 34.0 g/dL (33.0-35.0) 09/23/18 05:01 RDW 15.4 % (11.6-16.5) 09/23/18 05:01 Plt Count 146 X10^3/uL (150.0-450.0) L 09/23/18 05:01 MPV 8.4 fL (7.4-11.0) 09/23/18 05:01 Neut % (Auto) 82.7 % (42.0-75.0) H 09/23/18 05:01 Lymph % (Auto) 7.3 % (21.0-51.0) L 09/23/18 05:01 [place] % (Auto) 6.4 % (0.0-13.0) 09/23/18 05:01 Eos % (Auto) 3.0 % (0.9-2.9) H 09/23/18 05:01 Baso % (Auto) 0.6 % (0.2-1.0) 09/23/18 05:01 Neut # (Auto) 4.7 x10^3/uL (2.2-4.8) 09/23/18 05:01 Lymph # (Auto) 0.4 X10^3/uL (1.3-2.9) L 09/23/18 05:01 [place] # (Auto) 0.4 x10^3/uL (0.3-0.8) 09/23/18 05:01 Eos # (Auto) 0.2 x10^3/uL (0.0-0.2) 09/23/18 05:01 Baso # (Auto) 0.0 X10^3/uL (0.0-0.1) 09/23/18 05:01 Absolute Nucleated RBC 0.0 /100WBC 09/23/18 05:01 Sodium 138 mmol/L (136-145) 09/23/18 05:01 Corrected Sodium TNP 09/23/18 05:01 Potassium 4.4 mmol/L (3.5-5.1) 09/23/18 05:01 Chloride 105 mmol/L (98-107) 09/23/18 05:01 Carbon Dioxide 25.5 mmol/L (21-32) 09/23/18 05:01 BUN 16 mg/dL (7-18) 09/23/18 05:01 Creatinine 1.03 mg/dL (0.55-1.02) H 09/23/18 05:01 Est GFR (MDRD) Af Amer > 60 (>60) 09/23/18 05:01 Est GFR (MDRD) Non-Af 54 (>60) L 09/23/18 05:01 Glucose 100 mg/dL (65-99) H 09/23/18 05:01 POC Glucose (mg/dL) 128 mg/dL (65-99) H 09/23/18 12:51 Calcium 8.5 mg/dL (8.5-10.1) 09/23/18 05:01 Corrected Calcium 9.6 mg/dL (8.5-10.1) 09/23/18 05:01 Total Bilirubin 0.40 mg/dL (0.2-1.0) 09/23/18 05:01 AST 20 Units/L (15-37) 09/23/18 05:01 ALT 22 Units/L (12-78) 09/23/18 05:01 Alkaline Phosphatase 46 Units/L (46-116) 09/23/18 05:01 Total Protein 5.9 g/dL (6.4-8.2) L 09/23/18 05:01 Albumin 2.6 g/dL (3.4-5.0) L 09/23/18 05:01 Globulin 3.3 g/dL (2.5-4.5) 09/23/18 05:01 Albumin/Globulin Ratio 0.8 Ratio (1.1-2.1) L 09/23/18 05:01 Ethyl Alcohol mg/dL Cancelled 09/22/18 20:08 - Plan (1) Acute UTI Status: Acute Plan: ADMISSION CULTURE +ECOLI. STARTED IV CIPRO 400 IV (2) Hyponatremia Status: Acute (3) Mild dehydration Status: Acute (4) Weakness Status: Acute
[2018-09-23] MEDS: CIPRO IV 400 MG PREMIX* 400 MG/200 ML IV.SOLN. IV SCH ×2 (17:45→20:45)
[2018-09-23] MEDS: KLONOPIN TAB 1 MG PO SCH (20:46)
[2018-09-24 05:29] LABS: BASOPHILS % (AUTO) 0.5 % (0.2-1.0); EOSINOPHILS # (AUTO) 0.2 x10^3/uL (0.0-0.2); EOSINOPHILS % (AUTO) 2.9 % (0.9-2.9); HEMATOCRIT 31.3 % (36.0-47.0); HEMOGLOBIN 10.7 g/dL (12.0-16.0); LYMPHOCYTES # (AUTO) 0.7 X10^3/uL (1.3-2.9); LYMPHOCYTES % (AUTO) 13.5 % (21.0-51.0); MEAN CORPUSCULAR HEMOGLOBIN 32.7 pg (27.0-34.0); MEAN CORPUSCULAR VOLUME 96.1 fL (80.0-100.0); MEAN PLATELET VOLUME 8.5 fL (7.4-11.0); MONOCYTES # (AUTO) 0.4 x10^3/uL (0.3-0.8); MONOCYTES % (AUTO) 7.3 % (0.0-13.0); NEUTROPHILS # (AUTO) 4.1 x10^3/uL (2.2-4.8); NEUTROPHILS % (AUTO) 75.8 % (42.0-75.0); PLATELET COUNT 145 X10^3/uL (150.0-450.0); RED BLOOD COUNT 3.26 X10^6/uL (3.5-5.4); RED CELL DISTRIBUTION WIDTH 15.5 % (11.6-16.5); WHITE BLOOD COUNT 5.3 X10^3/uL (3.6-10.0)
[2018-09-24 05:47] LABS: ALANINE AMINOTRANSFERASE 24 Units/L (12-78); ALBUMIN 2.6 g/dL (3.4-5.0); ALKALINE PHOSPHATASE 50 Units/L (46-116); ASPARTATE AMINO TRANSFERASE 20 Units/L (15-37); BLOOD UREA NITROGEN 18 mg/dL (7-18); CALCIUM 8.4 mg/dL (8.5-10.1); CARBON DIOXIDE 23.6 mmol/L (21-32); CHLORIDE 108 mmol/L (98-107); COR CA(FOR HYPOALB) 9.5 mg/dL (8.5-10.1); CREATININE 1.02 mg/dL (0.55-1.02); SODIUM 141 mmol/L (136-145); TOTAL PROTEIN 5.9 g/dL (6.4-8.2); eGFR NON BLACK RACES 55 (>60)
[2018-09-24] MEDS ORDERED: TYLENOL 325 MG TAB PO ONE (05:47)
[2018-09-24] MEDS: TYLENOL 325 MG TAB PO PRN ×2 (06:26→20:37)
[2018-09-24] MEDS: SYNTHROID 50 mcg TAB PO SCH (06:27)
[2018-09-24] MEDS: NS 1000 ML 1,000 ML IV SCH ×3 (06:27→20:37)
[2018-09-24] MEDS: MICRO K EXTEN CAP 10 MEQ PO SCH (08:50)
[2018-09-24] MEDS: CIPRO IV 400 MG PREMIX* 400 MG/200 ML IV.SOLN. IV SCH ×2 (08:50→20:07)
[2018-09-24] MEDS: ASPIRIN EC 81 MG PO SCH (08:50)
[2018-09-24] MEDS: PREDNISONE TAB 5 MG PO SCH (08:50)
[2018-09-24] MEDS: LOVENOX INJ 40 MG SYR SC SCH (08:50)
[2018-09-24] MEDS: ARTIFICIAL TEARS DROPS OP SCH (08:51)
--- NOTE | 2018-09-24 12:22 | PCM.PROG ---
Progress Note - Progress Note for Day of Date of Exam: 09/24/18 - Subjective Subjective: 87 WF ER ADMISSION WITH UTI, HYPONATREMIA. PT HAD UA WITH UC ON ER VISIT PRIOR TO ADMISSION +ECOLI. PT IS CURRENTLY ON IV CIPRO. PT NA NORMAL ON CMP THIS AM. PT CO WEAKNESS CONTINUED AND CO NOT SLEEPING WELL AT NIGHT. PT REPORTS NORMAL BM YESTERDAY. PLAN TO CONSULT PT/OT AND CONTINUE IV CIPRO. - Past Medical Family Social History Past Med/Fam/Surg Hx: No changes since H&P Allergies: Allergies cephalexin Allergy (Verified 09/21/18 09:09) clarithromycin [From Biaxin] Allergy (Verified 09/21/18 09:09) - Review of Systems ROS: No change since H&P - Vital Signs and I&O's Vital Signs: Temperature 97.8 F Pulse Rate [Left Brachial] 54 Pulse Rate 78 Respiratory Rate 18 Blood Pressure [Left Arm] 130/59 Blood Pressure [Right Arm] 155/69 Blood Pressure 130/59 O2 Sat by Pulse Oximetry 97 Intake and Output: Intake & Output 09/22/18 09/23/18 09/24/18 09/25/18 11:59 11:59 11:59 11:59 Intake Total 1060 / 1060 1941 / 1941 Output Total 2950 / 2950 Balance 1060 / 1060 -1009 / -1009 - Physical Exam Oriented: Normal Eyes: Normal Ear: Normal Nose: Normal Throat: Normal Respiratory: Diminished Cardiovascular: Normal : Normal Auscultation: Bowel Sounds: Normal Tenderness: Normal Skin: Decreased Turgur Musculoskeletal: Back:Lumbar Psychiatric: Anxiety Affect: Anxious Speech Pattern: Clear - Laboratory and Diagnostics Result Diagrams: 09/24/18 05:12 09/24/18 05:12 Labs: Laboratory WBC 5.3 X10^3/uL (3.6-10.0) 09/24/18 05:12 RBC 3.26 X10^6/uL (3.5-5.4) L 09/24/18 05:12 Hgb 10.7 g/dL (12.0-16.0) L 09/24/18 05:12 Hct 31.3 % (36.0-47.0) L 09/24/18 05:12 MCV 96.1 fL (80.0-100.0) 09/24/18 05:12 MCH 32.7 pg (27.0-34.0) 09/24/18 05:12 MCHC 34.0 g/dL (33.0-35.0) 09/24/18 05:12 RDW 15.5 % (11.6-16.5) 09/24/18 05:12 Plt Count 145 X10^3/uL (150.0-450.0) L 09/24/18 05:12 MPV 8.5 fL (7.4-11.0) 09/24/18 05:12 Neut % (Auto) 75.8 % (42.0-75.0) H 09/24/18 05:12 Lymph % (Auto) 13.5 % (21.0-51.0) L 09/24/18 05:12 [place] % (Auto) 7.3 % (0.0-13.0) 09/24/18 05:12 Eos % (Auto) 2.9 % (0.9-2.9) 09/24/18 05:12 Baso % (Auto) 0.5 % (0.2-1.0) 09/24/18 05:12 Neut # (Auto) 4.1 x10^3/uL (2.2-4.8) 09/24/18 05:12 Lymph # (Auto) 0.7 X10^3/uL (1.3-2.9) L 09/24/18 05:12 [place] # (Auto) 0.4 x10^3/uL (0.3-0.8) 09/24/18 05:12 Eos # (Auto) 0.2 x10^3/uL (0.0-0.2) 09/24/18 05:12 Baso # (Auto) 0.0 X10^3/uL (0.0-0.1) 09/24/18 05:12 Absolute Nucleated RBC 0.0 /100WBC 09/24/18 05:12 Sodium 141 mmol/L (136-145) 09/24/18 05:12 Corrected Sodium TNP 09/24/18 05:12 Potassium 4.2 mmol/L (3.5-5.1) 09/24/18 05:12 Chloride 108 mmol/L (98-107) H 09/24/18 05:12 Carbon Dioxide 23.6 mmol/L (21-32) 09/24/18 05:12 BUN 18 mg/dL (7-18) 09/24/18 05:12 Creatinine 1.02 mg/dL (0.55-1.02) 09/24/18 05:12 Est GFR (MDRD) Af Amer > 60 (>60) 09/24/18 05:12 Est GFR (MDRD) Non-Af 55 (>60) L 09/24/18 05:12 Glucose 106 mg/dL (65-99) H 09/24/18 05:12 POC Glucose (mg/dL) 128 mg/dL (65-99) H 09/23/18 12:51 Calcium 8.4 mg/dL (8.5-10.1) L 09/24/18 05:12 Corrected Calcium 9.5 mg/dL (8.5-10.1) 09/24/18 05:12 Total Bilirubin 0.20 mg/dL (0.2-1.0) 09/24/18 05:12 AST 20 Units/L (15-37) 09/24/18 05:12 ALT 24 Units/L (12-78) 09/24/18 05:12 Alkaline Phosphatase 50 Units/L (46-116) 09/24/18 05:12 Total Protein 5.9 g/dL (6.4-8.2) L 09/24/18 05:12 Albumin 2.6 g/dL (3.4-5.0) L 09/24/18 05:12 Globulin 3.3 g/dL (2.5-4.5) 09/24/18 05:12 Albumin/Globulin Ratio 0.8 Ratio (1.1-2.1) L 09/24/18 05:12 Ethyl Alcohol mg/dL Cancelled 09/22/18 20:08 - Plan (1) Acute UTI Status: Acute Plan: CULTURE +ECOLI. IV CIPRO 400 IV (2) Hyponatremia Status: Acute (3) Mild dehydration Status: Acute (4) Weakness Status: Acute
[2018-09-24] MEDS: ESOMEPRAZOLE MAGNESIUM PO SCH (14:00)
[2018-09-24] MEDS: KLONOPIN TAB 1 MG PO SCH (20:08)
[2018-09-25 05:23] LABS: BASOPHILS % (AUTO) 0.7 % (0.2-1.0); EOSINOPHILS # (AUTO) 0.1 x10^3/uL (0.0-0.2); EOSINOPHILS % (AUTO) 2.8 % (0.9-2.9); HEMATOCRIT 31.9 % (36.0-47.0); HEMOGLOBIN 10.9 g/dL (12.0-16.0); LYMPHOCYTES % (AUTO) 22.1 % (21.0-51.0); MEAN CORPUSCULAR HEMOGLOBIN 32.5 pg (27.0-34.0); MEAN CORPUSCULAR HGB CONC 34.2 g/dL (33.0-35.0); MEAN PLATELET VOLUME 8.3 fL (7.4-11.0); MONOCYTES # (AUTO) 0.4 x10^3/uL (0.3-0.8); MONOCYTES % (AUTO) 7.6 % (0.0-13.0); NEUTROPHILS # (AUTO) 3.1 x10^3/uL (2.2-4.8); NEUTROPHILS % (AUTO) 66.8 % (42.0-75.0); PLATELET COUNT 154 X10^3/uL (150.0-450.0); RED BLOOD COUNT 3.36 X10^6/uL (3.5-5.4); RED CELL DISTRIBUTION WIDTH 15.5 % (11.6-16.5); WHITE BLOOD COUNT 4.6 X10^3/uL (3.6-10.0)
[2018-09-25 05:36] LABS: ALANINE AMINOTRANSFERASE 22 Units/L (12-78); ALBUMIN 2.6 g/dL (3.4-5.0); ALKALINE PHOSPHATASE 48 Units/L (46-116); ASPARTATE AMINO TRANSFERASE 18 Units/L (15-37); BLOOD UREA NITROGEN 15 mg/dL (7-18); CALCIUM 8.3 mg/dL (8.5-10.1); CARBON DIOXIDE 25.1 mmol/L (21-32); CHLORIDE 109 mmol/L (98-107); COR CA(FOR HYPOALB) 9.4 mg/dL (8.5-10.1); CREATININE 0.83 mg/dL (0.55-1.02); SODIUM 143 mmol/L (136-145); TOTAL PROTEIN 5.9 g/dL (6.4-8.2); eGFR NON BLACK RACES > 60 (>60)
[2018-09-25] MEDS: PREDNISONE TAB 5 MG PO SCH (09:09)
[2018-09-25] MEDS: SYNTHROID 50 mcg TAB PO SCH (09:09)
[2018-09-25] MEDS: CIPRO IV 400 MG PREMIX* 400 MG/200 ML IV.SOLN. IV SCH (09:09)
[2018-09-25] MEDS: MICRO K EXTEN CAP 10 MEQ PO SCH (09:09)
[2018-09-25] MEDS: LOVENOX INJ 40 MG SYR SC SCH (09:09)
[2018-09-25] MEDS: ASPIRIN EC 81 MG PO SCH (09:09)
[2018-09-25] MEDS: ARTIFICIAL TEARS DROPS OP SCH (09:12)
[2018-09-25] MEDS: ESOMEPRAZOLE MAGNESIUM PO SCH (09:12)
--- NOTE | 2018-09-25 13:00 | RAD ---
HISTORY: Cough Study: Single-view chest, done portably Comparison: 04/19/2018 Findings: Trachea is midline. Cardiomegaly with atherosclerotic calcification and uncoiling of the aortic arch. There is hyperinflation of the lungs with a small focus of atelectasis or infiltrate present in the left lung base. No significant pleural effusion is seen. There is no evidence pneumothorax. Osseous structures are intact. IMPRESSION: Hyperinflation of the lungs with a small focus of atelectasis or infiltrate in the left lung base. Hypertensive configuration. Reported By:
[2018-09-25 16:04] VITALS: BP 143/64
== END 2018-09-25 16:15 | disposition home or self-care (01) | DRG 690 ==
LOC: ER 19:01 → MED/SURG 20:33
PROVIDERS: ADMIT Internal Medicine; ATTEND Internal Medicine
DX: E86.0 Dehydration; F41.8 Other specified anxiety disorders; B96.29 Other Escherichia coli [E. coli] as the cause of diseases classified elsewhere; Z79.899 Other long term (current) drug therapy; E87.1 Hypo-osmolality and hyponatremia; K21.9 Gastro-esophageal reflux disease without esophagitis; E03.8 Other specified hypothyroidism; R53.1 Weakness; N39.0 Urinary tract infection, site not specified
CPT/HCPCS: 36415; 71010; 71045; 80053; 85025; 94760; 96365; 96374; 97162; 99284; A4216; A4222; J0744; J1650; J2543; J3490; J7030; J7050; J7512

== ENCOUNTER 2019-01-31 09:18 | Observation (INO) ==
--- NOTE | 2019-01-31 09:55 | DR.EXTPAIN ---
HPI Time seen Time Seen by Provider: 01/31/19 09:34 PCP Primary Care Physician: ADAM SHETTY HPI Comment HPI Comment: PATIENT IS 88YR OLD FEMALE IS IN THE EMERGENCY ROWITHOM VIA EMS AFTER SHE WAS FOUND ON THE FLOOR THIS AM. PATIENT TEMP WAS ELEVATED IN THE AMBULANCE DURING TRANSPORT. 8/10 PAIN, SHARP IN LEGS, NO LOC. SHE FEELS WEAK AND IS SOB ON EXERTION. Complaint/Symptoms Chief Complaint Doctor Comments: FELL AT HOME THIS AM. SUPPLIER RELATIONSHIP DIRECTOR FOUND PATIENT ON THE FLOOR. Chief Complaint:: PT C/O FALLING AT HOME THIS AM AND BILATERAL LEG PAIN , PT'S FAMILY STATES SHE WAS FOUND IN FLOOR BY SUPPLIER RELATIONSHIP DIRECTOR AROUND 0400 THIS AM .BR Self Treatment fo Chief Complaint: PT TEMP WITH EMS WAS 100.4 , PT'S FAMILY STATES SHE TOOK HER ABX ( BACTRIM ) LASTNIGHT AND SHE BECAME NAUSEATED ,BR Nurses notes reviewed Nurses Notes Review: Yes Source History Provided: Patient Mode of arrival Mode of Arrival: EMS Timing Onset of Chief Complaint: 01/31/19 Context History of: None Associated signs and symptoms Associated Signs and Symptoms: Pain and Swelling PMH PMH Past Medical History: Yes Past Medical History: Anxiety, GERD and Hypothyroidism Past Medical History Comment: MVP, Past Surgical History: Yes Surgical History: Hysterectomy, Ortho Surgery and Other Family History History of Family Medical Conditions: Yes Family Medical History: Diabetes Mellitus, Cancer and LA Social History Does patient currently use any type of tobacco product: No Have you used tobacco products in the last 12 months: No Type of Tobacco Use: None Does any household member use tobacco: No Alcohol Use: None Do you use any recreational Drugs:: No Lives With: Family Lives Where: Home infectious screening In the last 2 months have you had wt loss of >10#?: NO Have you had fever, night sweats or hemotysis?: No Have you traveled outside the country in the last 6 months?: No Isolation: Standard ROS Review of Systems Constitutional: See HPI, Fever, Weakness and Fatigue; negative Chills Eyes: See HPI; negative Eye Pain, Blurred Vision, Tearing and Discharge ENTM: See HPI and Nose Congestion; negative Ear Pain, Nose Discharge and Throat Pain Respiratoy: See HPI, Non-Productive Cough, Short of Breath and Wheezing Cardiovascular: See HPI and Edema; negative Chest Pain and Palpitations Gastrointestinal/Abdominal: See HPI and Nausea; negative Abdominal Pain, Constipation, Diarrhea and Vomiting Genitourinary: See HPI; negative Dysuria and Hematuria Neurological: See HPI, Headache, Weakness and Dizziness Musculoskeletal: See HPI, Back Pain and Muscle Pain Integumentary: No Symptoms Reported, See HPI and Dryness; negative Change in Color, Rash and Juandice Hematologic/Lymphatic: No Symptoms Reported and See HPI; negative Easy Bleeding, Easy Bruising and Swollen Glands Endocrine: No Symptoms Reported and See HPI; negative Increased Thirst, Increase d Urine and Decreased Appetite Psychiatric: No Symptoms Reported and See HPI All Other Systems: Reviewed and Negative PE Vital Signs Vitals: Temperature 98.3 F Pulse Rate [Right Radial] 57 Pulse Rate 69 Respiratory Rate 18 Blood Pressure [Left Arm] 140/65 Blood Pressure [Right Arm] 152/65 Blood Pressure 113/55 O2 Sat by Pulse Oximetry 96 General Limitations: No Limitations General Appearance: Alert and In No Apparent Distress Head Head Exam: Normal Inspection Eyes Eye exam: Normal Appearance, PERRL and EOMI; negative Scleral Icterus and Nysta gmus ENT ENT Exam: Normal Exam, Normal Oropharynx, Normal External Ear Exam and TM's Normal Bilaterally Neck Neck Exam: Normal Inspection and Trachea Midline; negative Tenderness and Lymphadenopathy Chest Chest Inspection: Normal Inspection and Symmetric Chest Wall Rise; negative Tenderness Respiratory Respiratory Exam: Normal Lung Sounds Bilat; negative Accessory Muscle Use, Chest Wall Tenderness and Respiratory Distress Respiratory Exam: Bilateral: Rhonchi and Lower: Rhonchi Cardiovascular Cardiovascular Exam: Regular Rate, Normal Rhythm and Normal Heart Sounds; negative Systolic Murmur and Diastolic Murmur Abdominal Exam Abdominal Exam: Normal Inspection, Normal Bowel Sounds and Soft; negative Tenderness Extremities Extremities Exam: Normal Inspection, Tenderness, Normal Capillary Refill and Edema; negative Calf Tenderness Back Back Exam: Normal Inspection and Paraspinal Tenderness; negative Tenderness, (R) CVA Tenderness, (L) CVA Tenderness and Vertebral Tenderness Neurological Neurological Exam: Alert, Oriented X3 and CN II-XII Intact; negative Motor Sensory Deficit Psychiatric Psychiatric Exam: Normal Affect and Normal Mood Skin Skin Exam: Warm, Dry, Intact and Normal Color MDM Differential Diagnosis Differential Diagnosis: Other (PNEUMONIA, LA, CONTUSION LEGS, GENERALIZED WEAKNESS.) COURSE Treatment Treatment: SEE ORDERS. Consultation Consultation Comments: DISCUSSED PATIENT WITH DR. TRUJILLO. HE WILL ADMIT PATIENT. Education/Counseling Education/Counseling: Patient Educated On: Diagnosis ROR Labs Reviewed Laboratory Results Reviewed?: Yes Result Diagrams: 02/05/19 04:15 02/05/19 04:15 Laboratory: 01/31/19 10:33 Blood Blood Culture - Final 01/31/19 10:11 Blood Blood Culture - Final 01/31/19 13:56 Urine,Catheterized Urine Culture - Final WBC 7.4 X10^3/uL (3.6-10.0) 02/05/19 04:15 RBC 3.63 X10^6/uL (3.5-5.4) 02/05/19 04:15 Hgb 12.2 g/dL (12.0-16.0) 02/05/19 04:15 Hct 35.1 % (36.0-47.0) L 02/05/19 04:15 MCV 96.9 fL (80.0-100.0) 02/05/19 04:15 MCH 33.6 pg (27.0-34.0) 02/05/19 04:15 MCHC 34.7 g/dL (33.0-35.0) 02/05/19 04:15 RDW 13.2 % (11.6-16.5) 02/05/19 04:15 Plt Count 202 X10^3/uL (150.0-450.0) 02/05/19 04:15 Plt Count Comment Adequate (ADEQUATE) 01/31/19 10:11 MPV 8.5 fL (7.4-11.0) 02/05/19 04:15 Neut % (Auto) 68.1 % (42.0-75.0) 02/05/19 04:15 Lymph % (Auto) 22.1 % (21.0-51.0) 02/05/19 04:15 [place] % (Auto) 7.4 % (0.0-13.0) 02/05/19 04:15 Eos % (Auto) 1.8 % (0.9-2.9) 02/05/19 04:15 Baso % (Auto) 0.6 % (0.2-1.0) 02/05/19 04:15 Neut # (Auto) 5.0 x10^3/uL (2.2-4.8) H 02/05/19 04:15 Lymph # (Auto) 1.6 X10^3/uL (1.3-2.9) 02/05/19 04:15 [place] # (Auto) 0.5 x10^3/uL (0.3-0.8) 02/05/19 04:15 Eos # (Auto) 0.1 x10^3/uL (0.0-0.2) 02/05/19 04:15 Baso # (Auto) 0.0 X10^3/uL (0.0-0.1) 02/05/19 04:15 Absolute Nucleated RBC 0.0 /100WBC 02/05/19 04:15 Total Counted 100 01/31/19 10:11 Neutrophils % (Manual) 88 % (39-76) H 01/31/19 10:11 Band Neutrophils % 4 % (0-10) 01/31/19 10:11 Lymphocytes % (Manual) 4 % (13-43) L 01/31/19 10:11 Monocytes % (Manual) 4 % (4-9) 01/31/19 10:11 Plt Morphology Comment Normal (NORMAL) 01/31/19 10:11 RBC Morphology Normal (NORMAL) 01/31/19 10:11 Sodium 142 mmol/L (136-145) 02/05/19 04:15 Corrected Sodium TNP 02/05/19 04:15 Potassium 4.0 mmol/L (3.5-5.1) 02/05/19 04:15 Chloride 107 mmol/L (98-107) 02/05/19 04:15 Carbon Dioxide 28.0 mmol/L (21-32) 02/05/19 04:15 BUN 20 mg/dL (7-18) H 02/05/19 04:15 Creatinine 0.89 mg/dL (0.55-1.02) 02/05/19 04:15 Est GFR (MDRD) Af Amer > 60 (>60) 02/05/19 04:15 Est GFR (MDRD) Non-Af > 60 (>60) 02/05/19 04:15 Glucose 94 mg/dL (65-99) 02/05/19 04:15 POC Glucose (mg/dL) 98 mg/dL (65-99) 02/02/19 11:30 Calcium 8.3 mg/dL (8.5-10.1) L 02/05/19 04:15 Corrected Calcium 9.5 mg/dL (8.5-10.1) 02/05/19 04:15 Magnesium 2.0 mg/dL (1.7-2.9) 02/04/19 04:09 Iron 38 ug/dL (50-175) L 02/04/19 04:09 Transferrin 210 mg/dL (202-364) 02/04/19 04:09 Ferritin 83 ng/mL (8-252) 02/04/19 04:09 Total Bilirubin 0.20 mg/dL (0.2-1.0) 02/05/19 04:15 AST 14 Units/L (15-37) L 02/05/19 04:15 ALT 13 Units/L (12-78) 02/05/19 04:15 Alkaline Phosphatase 70 Units/L (46-116) 02/05/19 04:15 Creatine Kinase 44 Units/L (26-192) 01/31/19 21:38 CK-MB (CK-2) < 1.0 ng/mL (0-4.0) 01/31/19 21:38 CK/CKMB % Calc 2.3 % (<4) 01/31/19 21:38 Troponin I < 0.02 ng/mL (0-1.5) 01/31/19 21:38 Total Protein 6.3 g/dL (6.4-8.2) L 02/05/19 04:15 Albumin 2.5 g/dL (3.4-5.0) L 02/05/19 04:15 Globulin 3.8 g/dL (2.5-4.5) 02/05/19 04:15 Albumin/Globulin Ratio 0.7 Ratio (1.1-2.1) L 02/05/19 04:15 Vitamin B12 945 pg/mL (193-986) 02/04/19 04:09 Folate 18.8 ng/mL (>8.6) 02/04/19 04:09 Specimen Type Catherized urine 01/31/19 13:56 Urine Color Yellow (YELLOW) 01/31/19 13:56 Urine Appearance Clear (CLEAR) 01/31/19 13:56 Urine pH 7.0 (5.0 - 8.0) 01/31/19 13:56 Ur Specific [place] 1.010 (1.000-1.030) 01/31/19 13:56 Urine Protein Negative (NEGATIVE) 01/31/19 13:56 Urine Glucose (UA) Negative (NEGATIVE) 01/31/19 13:56 Urine Ketones Negative (NEGATIVE) 01/31/19 13:56 Urine Occult Blood 1+ (NEGATIVE) 01/31/19 13:56 Urine Nitrite Negative (NEGATIVE) 01/31/19 13:56 Urine Bilirubin Negative (NEGATIVE) 01/31/19 13:56 Urine Urobilinogen Normal (NORMAL) 01/31/19 13:56 Ur Leukocyte Esterase 1+ (NEGATIVE) 01/31/19 13:56 Urine RBC 3-5 /HPF (0-3) A 01/31/19 13:56 Urine WBC 20-30 /HPF (0-5) A 01/31/19 13:56 Ur Squamous Epith Cells Negative /HPF (NEGATIVE) 01/31/19 13:56 Urine Bacteria Negative /HPF (NEGATIVE) 01/31/19 13:56 Ur Culture Indicated? Yes/culture set up 01/31/19 13:56 XRAY XRAY Interpreted by: Radiologist XRAY Findings: REPORT DISCUSSED WITH PATIENT AND FAMILY. EKG Rate: 68 Rhythm: NSR Block: None Hypertrophy: LAE ST: Normal Opioid Opioid Risk Tool Age (Sumanth box if 16-45): No History of Preadolescent Sexual Abuse: No Total: 0 Total Score Risk Category: Low Risk Copyright: Wily GORDILLO predicting aberrant behaviors Diagnosis Discharge Problem: Generalized muscle weakness UTI (urinary tract infection) Qualifiers: Urinary tract infection type: site unspecified Hematuria presence: with hematuria Qualified Code(s): N39.0 - Urinary tract infection, site not specified Knee pain, left Qualifiers: Chronicity: acute Qualified Code(s): M25.562 - Pain in left knee Fractured patella Qualifiers: Encounter type: subsequent encounter Fracture type: closed Fracture morphology: unspecified fracture morphology Fracture alignment: nondisplaced Laterality: left Fracture healing: with routine healing Qualified Code(s): S82.002D - Unspecified fracture of left patella, subsequent encounter for closed fracture with routine healing Lower extremity pain Qualifiers: Laterality: bilateral Qualified Code(s): M79.604 - Pain in right leg Instructions Forms: Excuse From Work
[2019-01-31 10:21] LABS: BASOPHILS % (AUTO) 0.5 % (0.2-1.0); EOSINOPHILS # (AUTO) 0.1 x10^3/uL (0.0-0.2); EOSINOPHILS % (AUTO) 1.1 % (0.9-2.9); HEMATOCRIT 32.1 % (36.0-47.0); HEMOGLOBIN 10.9 g/dL (12.0-16.0); LYMPHOCYTES # (AUTO) 0.2 X10^3/uL (1.3-2.9); LYMPHOCYTES % (AUTO) 2.5 % (21.0-51.0); MEAN CORPUSCULAR HEMOGLOBIN 33.4 pg (27.0-34.0); MEAN CORPUSCULAR VOLUME 98.2 fL (80.0-100.0); MEAN PLATELET VOLUME 8.5 fL (7.4-11.0); MONOCYTES # (AUTO) 0.2 x10^3/uL (0.3-0.8); MONOCYTES % (AUTO) 2.9 % (0.0-13.0); NEUTROPHILS # (AUTO) 7.3 x10^3/uL (2.2-4.8); PLATELET COUNT 169 X10^3/uL (150.0-450.0); RED BLOOD COUNT 3.27 X10^6/uL (3.5-5.4); RED CELL DISTRIBUTION WIDTH 13.4 % (11.6-16.5); WHITE BLOOD COUNT 7.9 X10^3/uL (3.6-10.0)
[2019-01-31 10:35] LABS: ALANINE AMINOTRANSFERASE 14 Units/L (12-78); ALBUMIN 3.1 g/dL (3.4-5.0); ALKALINE PHOSPHATASE 73 Units/L (46-116); ASPARTATE AMINO TRANSFERASE 23 Units/L (15-37); BLOOD UREA NITROGEN 25 mg/dL (7-18); CALCIUM 8.7 mg/dL (8.5-10.1); CARBON DIOXIDE 27.5 mmol/L (21-32); CHLORIDE 105 mmol/L (98-107); COR CA(FOR HYPOALB) 9.4 mg/dL (8.5-10.1); CREATININE 1.03 mg/dL (0.55-1.02); SODIUM 138 mmol/L (136-145); TOTAL PROTEIN 6.5 g/dL (6.4-8.2); eGFR NON BLACK RACES 54 (>60)
[2019-01-31 10:42] LABS: CKMB % 1.9 % (<4); CREATINE KINASE 53 Units/L (26-192); CREATINE KINASE MB < 1.0 ng/mL (0-4.0); TROPONIN I < 0.02 ng/mL (0-1.5)
[2019-01-31 10:43] LABS: BAND NEUTROPHILS % 4 % (0-10); PLATELET MORPHOLOGY COMMENT NORMAL (NORMAL)
--- NOTE | 2019-01-31 10:52 | RAD ---
HISTORY: 88-year-old female status post fall. Study: Frontal view of the chest. Comparison: Chest radiographs 09/25/2018 Findings: The trachea is midline. The cardiac silhouette is stably enlarged with chronic prominence interstitium and perihilar lung markings. The lungs are clear without focal consolidation, effusion or pneumothorax. Soft tissues are unremarkable. Osseous structures are unremarkable. IMPRESSION: 1. Chronic cardiomegaly and findings consistent with COPD. Reported By:
--- NOTE | 2019-01-31 10:52 | RAD ---
TIBIA/FIBULA RADIOGRAPHS CLINICAL HISTORY: 88-year-old female status post fall with bilateral leg pain. COMPARISON: None. FINDINGS: Frontal and lateral views of the left tibia and fibula were obtained. These demonstrate no acute fracture or malalignment of the tibia or fibula with chronic fracture of the patella. The ankle and knee articulations are congruent on provided views. The mineralization is maintained. There is no aggressive bone lesion or abnormal periosteal reaction. There is no radiopaque foreign body, soft tissue calcification or gas. Significant vascular calcifications are present. IMPRESSION: No acute fracture or malalignment of the left tibia or fibula. Reported By:
--- NOTE | 2019-01-31 10:54 | RAD ---
Rt right tibia and fibula two views Indication: Pain after fall. Findings: There is no cortical lucency or malalignment. Mild patellofemoral and femorotibial DJD noted Impression: No acute right foreleg fracture seen. Reported By:
--- NOTE | 2019-01-31 11:06 | RAD ---
Three views of the left knee. Indication: Transverse oriented fracture of the mid patella. Small suprapatellar joint effusion. There is generalized osteopenia within the left knee. Linear lucency within the medial tibial plateau adjacent to the tibial intercondylar eminence extending into the posterior tibial plateau consistent an age-indeterminate fracture. No malalignment of the medial or lateral femorotibial compartment. Moderate calcified atherosclerotic disease of the tibioperoneal trunk. Impression: Intra-articular fracture of the medial tibial plateau adjacent to the tibial intercondylar eminence extending into the posterior tibial plateau. The fracture also likely extends into the lateral tibial plateau/metaphysis. Consider correlation with nonemergent follow-up CT examination and immobilization. No significant change in transversely oriented fracture of the mid patella. 3. Small suprapatellar joint effusion. 4. Osteopenia. Reported By:
[2019-01-31 12:09] LABS: BILIRUBIN,URINE NEGATIVE (NEGATIVE); BLOOD/HEMOGLOBIN,URINE 1+ (NEGATIVE); GLUCOSE, URINE NEGATIVE (NEGATIVE); KETONES,URINE NEGATIVE (NEGATIVE); LEUKOCYTE ESTERASE ,URINE 1+ (NEGATIVE); NITRITES,URINE NEGATIVE (NEGATIVE); PROTEIN,URINE 1+ (NEGATIVE); UROBILINOGEN,URINE NORMAL (NORMAL)
[2019-01-31 12:22] LABS: APPEARANCE,URINE SLIGHTLY HAZY (CLEAR); COLOR,URINE DARK YELLOW (YELLOW)
[2019-01-31 12:23] LABS: BACTERIA,URINE NEGATIVE /HPF (NEGATIVE); SQUAMOUS EPITHELIAL CELL,UR NEGATIVE /HPF (NEGATIVE)
[2019-01-31 14:04] LABS: BILIRUBIN,URINE NEGATIVE (NEGATIVE); BLOOD/HEMOGLOBIN,URINE 1+ (NEGATIVE); GLUCOSE, URINE NEGATIVE (NEGATIVE); KETONES,URINE NEGATIVE (NEGATIVE); LEUKOCYTE ESTERASE ,URINE 1+ (NEGATIVE); NITRITES,URINE NEGATIVE (NEGATIVE); PROTEIN,URINE NEGATIVE (NEGATIVE); UROBILINOGEN,URINE NORMAL (NORMAL)
[2019-01-31 14:12] LABS: APPEARANCE,URINE CLEAR (CLEAR); BACTERIA,URINE NEGATIVE /HPF (NEGATIVE); COLOR,URINE YELLOW (YELLOW); SQUAMOUS EPITHELIAL CELL,UR NEGATIVE /HPF (NEGATIVE)
[2019-01-31] MEDS ORDERED: NS 100 ML IV 100 ML ONE (14:28)
[2019-01-31] MEDS ORDERED: NS 1/2 1000 ML IV 1,000 ML ONE (14:28)
[2019-01-31] MEDS ORDERED: INVANZ INJ 1 GM VIAL ONE (14:29)
[2019-01-31] MEDS: NS 1000 ML 1,000 ML IV SCH (15:05)
[2019-01-31] MEDS ORDERED: INVANZ INJ 1 GM VIAL 1 GM in NS 100 ML IV + SPIKE MINIBAG* 100 ML IV ONE (15:06)
[2019-01-31 16:39] LABS: CREATINE KINASE 50 Units/L (26-192); CREATINE KINASE MB < 1.0 ng/mL (0-4.0); TROPONIN I < 0.02 ng/mL (0-1.5)
[2019-01-31 20:34] VITALS: BMI 20.7
[2019-01-31 22:21] LABS: CKMB % 2.3 % (<4); CREATINE KINASE 44 Units/L (26-192); CREATINE KINASE MB < 1.0 ng/mL (0-4.0); TROPONIN I < 0.02 ng/mL (0-1.5)
[2019-02-01] MEDS: NS 1000 ML 1,000 ML IV SCH ×4 (05:08→21:31)
[2019-02-01 05:19] LABS: BASOPHILS % (AUTO) 0.8 % (0.2-1.0); EOSINOPHILS # (AUTO) 0.2 x10^3/uL (0.0-0.2); EOSINOPHILS % (AUTO) 3.8 % (0.9-2.9); HEMATOCRIT 30.3 % (36.0-47.0); HEMOGLOBIN 10.4 g/dL (12.0-16.0); LYMPHOCYTES # (AUTO) 0.5 X10^3/uL (1.3-2.9); LYMPHOCYTES % (AUTO) 10.9 % (21.0-51.0); MEAN CORPUSCULAR HEMOGLOBIN 33.3 pg (27.0-34.0); MEAN CORPUSCULAR HGB CONC 34.3 g/dL (33.0-35.0); MEAN CORPUSCULAR VOLUME 97.1 fL (80.0-100.0); MEAN PLATELET VOLUME 8.4 fL (7.4-11.0); MONOCYTES # (AUTO) 0.3 x10^3/uL (0.3-0.8); MONOCYTES % (AUTO) 7.1 % (0.0-13.0); NEUTROPHILS # (AUTO) 3.7 x10^3/uL (2.2-4.8); NEUTROPHILS % (AUTO) 77.4 % (42.0-75.0); PLATELET COUNT 152 X10^3/uL (150.0-450.0); RED BLOOD COUNT 3.12 X10^6/uL (3.5-5.4); RED CELL DISTRIBUTION WIDTH 13.9 % (11.6-16.5); WHITE BLOOD COUNT 4.8 X10^3/uL (3.6-10.0)
[2019-02-01 05:24] LABS: ALANINE AMINOTRANSFERASE 12 Units/L (12-78); ALBUMIN 2.6 g/dL (3.4-5.0); ALKALINE PHOSPHATASE 62 Units/L (46-116); ASPARTATE AMINO TRANSFERASE 18 Units/L (15-37); BLOOD UREA NITROGEN 18 mg/dL (7-18); CALCIUM 8.3 mg/dL (8.5-10.1); CARBON DIOXIDE 26.1 mmol/L (21-32); CHLORIDE 107 mmol/L (98-107); COR CA(FOR HYPOALB) 9.4 mg/dL (8.5-10.1); CREATININE 1.08 mg/dL (0.55-1.02); MAGNESIUM 1.8 mg/dL (1.7-2.9); SODIUM 140 mmol/L (136-145); TOTAL PROTEIN 5.8 g/dL (6.4-8.2); eGFR NON BLACK RACES 51 (>60)
[2019-02-01] MEDS: INVANZ INJ 1 GM VIAL 1 GM in NS 100 ML IV + SPIKE MINIBAG* 100 ML IV SCH (09:47)
[2019-02-01] MEDS ORDERED: ULTRAM ONE (11:45)
[2019-02-01] MEDS: ULTRAM PO PRN (11:48)
[2019-02-01] MEDS: SYNTHROID 50 mcg TAB PO SCH (12:06)
--- NOTE | 2019-02-01 13:18 | DR.H&P ---
H&P - History & Physical for Day of: H&P Date: 01/31/19 - Chief Complaint Chief Complaint: FALL, LOWER BACK AND LEG PAIN, "KIDNEY INFECTION" - History of Present Illness History of Present Illness: 88 WF ER ADMISSION AFTER PRESENTING WITH CO LOWER BACK AND LEG PAIN, RECENT FALL DUE TO CO WEAKNESS IN HER LEGS. PT REPORTS SHE WAS DX WITH KIDNEY INFECTION AT HER PCP ON SUNDAY, STARTED ON PO BACTRIM AND GIVEN ROCEPHIN SHOT IN THE OFFICE. PT REPORTS SHE TOOK PO BACTRIM AND CAUSED NAUSEA. PT HAS PMH OF HTN, BRITTNEY, HYPOTHYROIDISM - Past Medical History Past Medical History: Anxiety, Arthritis, GERD, Hypothyroidism Additional Medical History: ANDRAL GLAND INSUFFICIENCY - Past Surgical History Surgical History: Hysterectomy, Other - Family History Family Medical History: Sudden Cardiac , Hypertension - Social History Does patient currently use any type of tobacco product: No Have you used tobacco products in the last 12 months: No Type of Tobacco Use: None Does any household member use tobacco: Yes Alcohol Use: None Drug Use: None - Medications Home Medications: cephalexin Allergy (Verified 01/31/19 12:27) clarithromycin [From Biaxin] Allergy (Verified 01/31/19 12:27) CONTINUE taking the following medications esomeprazole magnesium 40 mg PO DAILY 01/31/19 [History] furosemide 20 mg PO DAILY 01/31/19 [History] ibandronate 150 mg PO DAILY 01/31/19 [History] levothyroxine 50 mcg PO DAILY 01/31/19 [History] levothyroxine 75 mcg PO DAILY 01/31/19 [History] mupirocin 1 applic TOPICAL DAILY 01/31/19 [History] oxybutynin chloride 5 mg PO HS 01/31/19 [History] sulfamethoxazole-trimethoprim 1 tab PO BID 01/31/19 [History] - Review of Systems Constitutional: Weakness Eyes: No Symptoms Reported ENT: No Symptoms Reported Respiratory: No Symptoms Reported Cardiovascular: No Symptoms Reported Gastrointestinal: Nausea Genitourinary: Frequency Musculoskeletal: Back Pain, Leg Pain Skin: Bruising Neurological: Weakness - Physical Exam Vital Signs: Temperature 98.4 F Pulse Rate [Right Radial] 63 Pulse Rate 69 Respiratory Rate 17 Blood Pressure [Left Arm] 141/78 Blood Pressure [Right Arm] 132/63 Blood Pressure 113/55 O2 Sat by Pulse Oximetry 96 Oriented: Normal Eyes: Normal Ear: Normal Nose: Normal Throat: Normal Respiratory: Clear Throughout Cardiovascular: Normal. negative: Edema : Normal Auscultation: Bowel Sounds: Normal Palpation: Normal Tenderness: Normal Skin: Decreased Turgur, Bruising (BILATERAL KNEE) Musculoskeletal: Right, Left, Knee, Back:Lumbar, Tender, Motor Deficit (BILATERAL LOWER EXTREMITY WEAKNESS) Psychiatric: Anxiety Affect: Anxious Speech Pattern: Clear, Appropriate - Assessment/Plan (1) Generalized weakness Status: Acute Plan: ADMIT, IV HYDRATION. URINE CULTURE ON ADMISSION, IV ROCEPHIN. AM LABS. VERIFY HOME MEDICATIONS, BP CONTROL (2) Frequent falls Status: Acute (3) Degenerative joint disease (DJD) of lumbar spine Qualifiers: Spinal osteoarthritis complication: unspecified spinal osteoarthritis Qualified Code(s): M47.816 - Spondylosis without myelopathy or radiculopathy, lumbar region Status: Acute (4) UTI (urinary tract infection) Qualifiers: Urinary tract infection type: site unspecified Hematuria presence: with hematuria Qualified Code(s): N39.0 - Urinary tract infection, site not specified; R31.9 - Hematuria, unspecified Status: Acute - Allergies Allergies/Adverse Reactions: Allergies Allergy/AdvReac Type Severity Reaction Status Date / Time cephalexin Allergy Verified 01/31/19 12:27 clarithromycin [From Biaxin] Allergy Verified 01/31/19 12:27
--- NOTE | 2019-02-01 13:25 | PCM.PROG ---
Progress Note - Progress Note for Day of Date of Exam: 02/01/19 - Subjective Subjective: 88 WF ER ADMISSION AFTER PRESENTING WITH CO FALL WITH WEAKNESS TO BILATERAL LOWER LEGS AND BACK PAIN. PT HAS BEEN ON TREATMENT OF UTI WITH PO BACTRIM WHICH SHE COULD NOT TOLERATE. PT IS CURRENTLY ON GENTLE IV HYDRATION, ROCEPHIN IV FOR UTI. PLAN TO OBTAIN CT LUMBAR SPINE, PT REPORTS L SPINE DDD. LEFT KNEE IN IMMOBILIZER, CT KNEE ORDERED TODAY. CONTINUE PRN PAIN CONTROL, PHYSICAL THERAPY - Past Medical Family Social History Allergies: Allergies cephalexin Allergy (Verified 01/31/19 12:27) clarithromycin [From Biaxin] Allergy (Verified 01/31/19 12:27) - Vital Signs and I&O's Vital Signs: Temperature 98.4 F Pulse Rate [Right Radial] 63 Pulse Rate 69 Respiratory Rate 17 Blood Pressure [Left Arm] 141/78 Blood Pressure [Right Arm] 132/63 Blood Pressure 113/55 O2 Sat by Pulse Oximetry 96 Intake and Output: Intake & Output 01/30/19 01/31/19 02/01/19 02/02/19 11:59 11:59 11:59 11:59 Intake Total 985 / 985 Output Total 2100 / 2100 Balance -1115 / -1115 - Physical Exam Oriented: Normal Eyes: Normal Ear: Normal Nose: Normal Throat: Normal Respiratory: Diminished Cardiovascular: Normal. negative: Edema : Normal Auscultation: Bowel Sounds: Normal Tenderness: Normal Skin: Decreased Turgur, Bruising (BILATERAL KNEE) Musculoskeletal: Right, Left, Knee, Back:Lumbar, Tender, Motor Deficit (BILATERAL LOWER EXTREMITY WEAKNESS) Psychiatric: Anxiety Affect: Anxious Speech Pattern: Clear, Appropriate - Laboratory and Diagnostics Result Diagrams: 02/01/19 04:04 02/01/19 04:04 Labs: 01/31/19 13:56 Urine,Catheterized Urine Culture - Preliminary Laboratory WBC 4.8 X10^3/uL (3.6-10.0) 02/01/19 04:04 RBC 3.12 X10^6/uL (3.5-5.4) L 02/01/19 04:04 Hgb 10.4 g/dL (12.0-16.0) L 02/01/19 04:04 Hct 30.3 % (36.0-47.0) L 02/01/19 04:04 MCV 97.1 fL (80.0-100.0) 02/01/19 04:04 MCH 33.3 pg (27.0-34.0) 02/01/19 04:04 MCHC 34.3 g/dL (33.0-35.0) 02/01/19 04:04 RDW 13.9 % (11.6-16.5) 02/01/19 04:04 Plt Count 152 X10^3/uL (150.0-450.0) 02/01/19 04:04 Plt Count Comment Adequate (ADEQUATE) 01/31/19 10:11 MPV 8.4 fL (7.4-11.0) 02/01/19 04:04 Neut % (Auto) 77.4 % (42.0-75.0) H 02/01/19 04:04 Lymph % (Auto) 10.9 % (21.0-51.0) L 02/01/19 04:04 [place] % (Auto) 7.1 % (0.0-13.0) 02/01/19 04:04 Eos % (Auto) 3.8 % (0.9-2.9) H 02/01/19 04:04 Baso % (Auto) 0.8 % (0.2-1.0) 02/01/19 04:04 Neut # (Auto) 3.7 x10^3/uL (2.2-4.8) 02/01/19 04:04 Lymph # (Auto) 0.5 X10^3/uL (1.3-2.9) L 02/01/19 04:04 [place] # (Auto) 0.3 x10^3/uL (0.3-0.8) 02/01/19 04:04 Eos # (Auto) 0.2 x10^3/uL (0.0-0.2) 02/01/19 04:04 Baso # (Auto) 0.0 X10^3/uL (0.0-0.1) 02/01/19 04:04 Absolute Nucleated RBC 0.0 /100WBC 02/01/19 04:04 Total Counted 100 01/31/19 10:11 Neutrophils % (Manual) 88 % (39-76) H 01/31/19 10:11 Band Neutrophils % 4 % (0-10) 01/31/19 10:11 Lymphocytes % (Manual) 4 % (13-43) L 01/31/19 10:11 Monocytes % (Manual) 4 % (4-9) 01/31/19 10:11 Plt Morphology Comment Normal (NORMAL) 01/31/19 10:11 RBC Morphology Normal (NORMAL) 01/31/19 10:11 Sodium 140 mmol/L (136-145) 02/01/19 04:04 Corrected Sodium TNP 02/01/19 04:04 Potassium 4.1 mmol/L (3.5-5.1) 02/01/19 04:04 Chloride 107 mmol/L (98-107) 02/01/19 04:04 Carbon Dioxide 26.1 mmol/L (21-32) 02/01/19 04:04 BUN 18 mg/dL (7-18) 02/01/19 04:04 Creatinine 1.08 mg/dL (0.55-1.02) H 02/01/19 04:04 Est GFR (MDRD) Af Amer > 60 (>60) 02/01/19 04:04 Est GFR (MDRD) Non-Af 51 (>60) L 02/01/19 04:04 Glucose 88 mg/dL (65-99) 02/01/19 04:04 Calcium 8.3 mg/dL (8.5-10.1) L 02/01/19 04:04 Corrected Calcium 9.4 mg/dL (8.5-10.1) 02/01/19 04:04 Magnesium 1.8 mg/dL (1.7-2.9) 02/01/19 04:04 Total Bilirubin 0.30 mg/dL (0.2-1.0) 02/01/19 04:04 AST 18 Units/L (15-37) 02/01/19 04:04 ALT 12 Units/L (12-78) 02/01/19 04:04 Alkaline Phosphatase 62 Units/L (46-116) 02/01/19 04:04 Creatine Kinase 44 Units/L (26-192) 01/31/19 21:38 CK-MB (CK-2) < 1.0 ng/mL (0-4.0) 01/31/19 21:38 CK/CKMB % Calc 2.3 % (<4) 01/31/19 21:38 Troponin I < 0.02 ng/mL (0-1.5) 01/31/19 21:38 Total Protein 5.8 g/dL (6.4-8.2) L 02/01/19 04:04 Albumin 2.6 g/dL (3.4-5.0) L 02/01/19 04:04 Globulin 3.2 g/dL (2.5-4.5) 02/01/19 04:04 Albumin/Globulin Ratio 0.8 Ratio (1.1-2.1) L 02/01/19 04:04 Specimen Type Catherized urine 01/31/19 13:56 Urine Color Yellow (YELLOW) 01/31/19 13:56 Urine Appearance Clear (CLEAR) 01/31/19 13:56 Urine pH 7.0 (5.0 - 8.0) 01/31/19 13:56 Ur Specific [place] 1.010 (1.000-1.030) 01/31/19 13:56 Urine Protein Negative (NEGATIVE) 01/31/19 13:56 Urine Glucose (UA) Negative (NEGATIVE) 01/31/19 13:56 Urine Ketones Negative (NEGATIVE) 01/31/19 13:56 Urine Occult Blood 1+ (NEGATIVE) 01/31/19 13:56 Urine Nitrite Negative (NEGATIVE) 01/31/19 13:56 Urine Bilirubin Negative (NEGATIVE) 01/31/19 13:56 Urine Urobilinogen Normal (NORMAL) 01/31/19 13:56 Ur Leukocyte Esterase 1+ (NEGATIVE) 01/31/19 13:56 Urine RBC 3-5 /HPF (0-3) A 01/31/19 13:56 Urine WBC 20-30 /HPF (0-5) A 01/31/19 13:56 Ur Squamous Epith Cells Negative /HPF (NEGATIVE) 01/31/19 13:56 Urine Bacteria Negative /HPF (NEGATIVE) 01/31/19 13:56 Ur Culture Indicated? Yes/culture set up 01/31/19 13:56 - Plan (1) Generalized weakness Status: Acute Plan: IV HYDRATION. URINE CULTURE ON ADMISSION, IV ROCEPHIN. AM LABS. VERIFY HOME MEDICATIONS, BP CONTROL (2) Frequent falls Status: Acute (3) Degenerative joint disease (DJD) of lumbar spine Status: Acute Qualifiers: Spinal osteoarthritis complication: unspecified spinal osteoarthritis Qualified Code(s): M47.816 - Spondylosis without myelopathy or radiculopathy, lumbar region (4) UTI (urinary tract infection) Status: Acute Qualifiers: Urinary tract infection type: site unspecified Hematuria presence: with hematuria Qualified Code(s): N39.0 - Urinary tract infection, site not specified; R31.9 - Hematuria, unspecified (5) Degenerative lumbar spinal stenosis Status: Acute (6) Left patella fracture Status: Acute Qualifiers: Encounter type: initial encounter Fracture type: closed Fracture morphology: transverse Fracture alignment: nondisplaced Qualified Code(s): S82.035A - Nondisplaced transverse fracture of left patella, initial encounter for closed fracture Plan: CT KNEE TODAY, PAIN CONTROL, CONTINUE IMMOBILIZER
--- NOTE | 2019-02-01 15:09 | RAD ---
Examination: Thoracic spine, three views History: Fell Findings: There is no evidence for fracture or subluxation. Disc spaces and paraspinal soft tissues are normal. The pedicles are intact. Alignment of vertebrae is anatomic. There is noted abnormal density at the left lung base and pleural space. The diaphragm on the left is obscured. Impression: 1. No acute thoracic spine injury demonstrated. 2. Airspace process with probable pleural fluid noted at left base, not definitely identified on recent chest examination. A follow-up chest examination may be helpful as clinically appropriate. Reported By:
--- NOTE | 2019-02-01 15:16 | RAD ---
Examination: Lumbar spine, five views History: Fell Findings: There is a mild levoscoliosis centered at L3. There is marked degenerative disc narrowing at L3-4 with 1.0 cm anterior listhesis. No fracture is seen. The pedicles and sacroiliac joints are intact. Impression: Lumbar scoliosis. Chronic degenerative disc disease at L3-4. Associated malalignment at this level is attributed to apophyseal facet arthropathy. Reported By:
[2019-02-01] MEDS: KLONOPIN TAB 1 MG PO SCH (21:31)
[2019-02-02 05:28] LABS: BASOPHILS % (AUTO) 0.3 % (0.2-1.0); EOSINOPHILS # (AUTO) 0.1 x10^3/uL (0.0-0.2); EOSINOPHILS % (AUTO) 2.4 % (0.9-2.9); HEMATOCRIT 32.2 % (36.0-47.0); HEMOGLOBIN 10.9 g/dL (12.0-16.0); LYMPHOCYTES # (AUTO) 0.9 X10^3/uL (1.3-2.9); LYMPHOCYTES % (AUTO) 15.4 % (21.0-51.0); MEAN CORPUSCULAR HEMOGLOBIN 33.3 pg (27.0-34.0); MEAN CORPUSCULAR HGB CONC 33.9 g/dL (33.0-35.0); MEAN CORPUSCULAR VOLUME 98.4 fL (80.0-100.0); MEAN PLATELET VOLUME 8.7 fL (7.4-11.0); MONOCYTES # (AUTO) 0.4 x10^3/uL (0.3-0.8); MONOCYTES % (AUTO) 7.6 % (0.0-13.0); NEUTROPHILS # (AUTO) 4.3 x10^3/uL (2.2-4.8); NEUTROPHILS % (AUTO) 74.3 % (42.0-75.0); PLATELET COUNT 160 X10^3/uL (150.0-450.0); RED BLOOD COUNT 3.27 X10^6/uL (3.5-5.4); RED CELL DISTRIBUTION WIDTH 13.2 % (11.6-16.5); WHITE BLOOD COUNT 5.8 X10^3/uL (3.6-10.0)
[2019-02-02 05:47] LABS: ALANINE AMINOTRANSFERASE 12 Units/L (12-78); ALBUMIN 2.6 g/dL (3.4-5.0); ALKALINE PHOSPHATASE 66 Units/L (46-116); ASPARTATE AMINO TRANSFERASE 17 Units/L (15-37); BLOOD UREA NITROGEN 15 mg/dL (7-18); CALCIUM 8.3 mg/dL (8.5-10.1); CHLORIDE 107 mmol/L (98-107); COR CA(FOR HYPOALB) 9.4 mg/dL (8.5-10.1); CREATININE 0.86 mg/dL (0.55-1.02); SODIUM 141 mmol/L (136-145); TOTAL PROTEIN 6.1 g/dL (6.4-8.2); eGFR NON BLACK RACES > 60 (>60)
[2019-02-02] MEDS: NS 1000 ML 1,000 ML IV SCH ×2 (05:49→20:19)
--- NOTE | 2019-02-02 05:57 | RAD ---
Chest, one view Indication: Coughing Comparison: 01/31/2019 Findings: The heart is stable in size. There is a stable small left pleural effusion and unchanged left basilar opacities. Left upper lung and right lung are clear. No pneumothorax. Impression: Stable small left pleural effusion and left basilar airspace disease. Reported By:
[2019-02-02] MEDS: ZESTRIL TAB 5 MG PO SCH (08:42)
[2019-02-02] MEDS: SYNTHROID 50 mcg TAB PO SCH (08:42)
[2019-02-02] MEDS: PREDNISONE TAB 5 MG PO SCH (08:42)
[2019-02-02] MEDS: NexIUM PO SCH (08:43)
[2019-02-02] MEDS: INVANZ INJ 1 GM VIAL 1 GM in NS 100 ML IV + SPIKE MINIBAG* 100 ML IV SCH (08:43)
[2019-02-02] MEDS: ULTRAM PO PRN (09:53)
[2019-02-02] MEDS ORDERED: LASIX ONE (10:15)
[2019-02-02] MEDS: LASIX IVP SCH (10:16)
[2019-02-02] MEDS: KLONOPIN TAB 1 MG PO SCH (20:19)
[2019-02-03 05:19] LABS: BASOPHILS % (AUTO) 0.4 % (0.2-1.0); EOSINOPHILS # (AUTO) 0.1 x10^3/uL (0.0-0.2); EOSINOPHILS % (AUTO) 1.7 % (0.9-2.9); HEMATOCRIT 35.3 % (36.0-47.0); HEMOGLOBIN 12.1 g/dL (12.0-16.0); LYMPHOCYTES # (AUTO) 1.1 X10^3/uL (1.3-2.9); LYMPHOCYTES % (AUTO) 14.7 % (21.0-51.0); MEAN CORPUSCULAR HEMOGLOBIN 32.9 pg (27.0-34.0); MEAN CORPUSCULAR HGB CONC 34.2 g/dL (33.0-35.0); MEAN CORPUSCULAR VOLUME 96.3 fL (80.0-100.0); MEAN PLATELET VOLUME 8.8 fL (7.4-11.0); MONOCYTES # (AUTO) 0.6 x10^3/uL (0.3-0.8); MONOCYTES % (AUTO) 8.8 % (0.0-13.0); NEUTROPHILS # (AUTO) 5.5 x10^3/uL (2.2-4.8); NEUTROPHILS % (AUTO) 74.4 % (42.0-75.0); PLATELET COUNT 174 X10^3/uL (150.0-450.0); RED BLOOD COUNT 3.67 X10^6/uL (3.5-5.4); RED CELL DISTRIBUTION WIDTH 13.3 % (11.6-16.5); WHITE BLOOD COUNT 7.3 X10^3/uL (3.6-10.0)
[2019-02-03 05:34] LABS: ALANINE AMINOTRANSFERASE 15 Units/L (12-78); ALBUMIN 2.7 g/dL (3.4-5.0); ALKALINE PHOSPHATASE 72 Units/L (46-116); ASPARTATE AMINO TRANSFERASE 17 Units/L (15-37); BLOOD UREA NITROGEN 16 mg/dL (7-18); CALCIUM 8.4 mg/dL (8.5-10.1); CHLORIDE 105 mmol/L (98-107); COR CA(FOR HYPOALB) 9.4 mg/dL (8.5-10.1); CREATININE 0.87 mg/dL (0.55-1.02); SODIUM 140 mmol/L (136-145); TOTAL PROTEIN 6.6 g/dL (6.4-8.2); eGFR NON BLACK RACES > 60 (>60)
[2019-02-03] MEDS ORDERED: POTASSIUM CHL 60 MEQ/NS 0.45% 500 ML IV PRN (06:30)
[2019-02-03] MEDS ORDERED: POTASSIUM CHLORIDE LIQ 20 MEQ UDC PO PRN (06:30)
[2019-02-03] MEDS ORDERED: MICRO K EXTEN CAP 10 MEQ PO PRN (06:30)
[2019-02-03] MEDS ORDERED: K-RIDER 10 MEQ/NS 100 ML 10 MEQ/100 ML BAG IV PRN (06:30)
[2019-02-03] MEDS ORDERED: MAGNESIUM SULFATE 1 GRAM/100 mL PREMIX 1 GM/100 ML BAG IV PRN (06:30)
[2019-02-03] MEDS ORDERED: K-DUR TAB 20 MEQ PO PRN (06:30)
[2019-02-03] MEDS ORDERED: POTASSIUM CHL 40 MEQ/NS 0.45% 500 ML IV PRN (06:30)
[2019-02-03] MEDS ORDERED: KLOR-CON PO PRN (06:30)
[2019-02-03] MEDS: INVANZ INJ 1 GM VIAL 1 GM in NS 100 ML IV + SPIKE MINIBAG* 100 ML IV SCH (08:40)
[2019-02-03] MEDS: PREDNISONE TAB 5 MG PO SCH (08:41)
[2019-02-03] MEDS: SYNTHROID 50 mcg TAB PO SCH (08:42)
[2019-02-03] MEDS: ULTRAM PO PRN (08:42)
[2019-02-03] MEDS: ZESTRIL TAB 5 MG PO SCH (08:42)
[2019-02-03] MEDS: NexIUM PO SCH (08:43)
[2019-02-03] MEDS: NS 1000 ML 1,000 ML IV SCH (09:06)
[2019-02-03] MEDS ORDERED: PHARMACY CONSULT - DOSE _____ XX SCH (10:00)
[2019-02-03] MEDS: LOVENOX INJ 40 MG SYR SC SCH (13:01)
[2019-02-03] MEDS ORDERED: PEPCID 20 MG IV PREMIX* 20 MG/50 ML BAG IV ONE (13:19)
--- NOTE | 2019-02-03 13:23 | PCM.PROG ---
Progress Note - Progress Note for Day of Date of Exam: 02/03/19 - Subjective Subjective: 88 WF ER ADMISSION AFTER PRESENTING WITH CO FALL WITH WEAKNESS TO BILATERAL LOWER LEGS AND BACK PAIN. PT HAS BEEN ON TREATMENT OF UTI WITH PO BACTRIM WHICH SHE COULD NOT TOLERATE. PT IS CURRENTLY ON IV ABTX THERAPY. PLAN TO OBTAIN CT LUMBAR SPINE, PT REPORTS L SPINE DDD. LEFT KNEE IN IMMOBILIZER WITH PAIN CONTROL. PT AND FAMILY REPORTS PT IS HAVING GENERALIZED WEAKNESS, TROUBLE EATING THIS AM AND CO CONTINUED LOWER LEG WEAKNESS AND PAIN. - Past Medical Family Social History Past Med/Fam/Surg Hx: No changes since H&P Allergies: Allergies cephalexin Allergy (Verified 01/31/19 12:27) clarithromycin [From Biaxin] Allergy (Verified 01/31/19 12:27) - Review of Systems ROS: No change since H&P - Vital Signs and I&O's Vital Signs: Temperature 97.9 F Pulse Rate [Right Radial] 68 Pulse Rate 69 Respiratory Rate 18 Blood Pressure [Left Arm] 139/76 Blood Pressure [Right Arm] 152/65 Blood Pressure 113/55 O2 Sat by Pulse Oximetry 95 Intake and Output: Intake & Output 02/01/19 02/02/19 02/03/19 02/04/19 11:59 11:59 11:59 11:59 Intake Total 985 / 985 2687 / 2687 1490 / 1490 Output Total 2100 / 2100 3050 / 3050 3775 / 3775 Balance -1115 / -1115 -363 / -363 -2285 / -2285 - Physical Exam Oriented: Normal Eyes: Normal Ear: Normal Nose: Normal Throat: Normal Respiratory: Diminished Cardiovascular: Normal. negative: Edema : Normal Auscultation: Bowel Sounds: Normal Tenderness: Normal Skin: Decreased Turgur, Bruising (BILATERAL KNEE) Musculoskeletal: Right, Left, Knee, Back:Lumbar, Tender, Motor Deficit (BILATERAL LOWER EXTREMITY WEAKNESS) Psychiatric: Anxiety Affect: Anxious Speech Pattern: Clear, Appropriate - Laboratory and Diagnostics Result Diagrams: 02/03/19 04:18 02/03/19 04:18 Labs: 01/31/19 13:56 Urine,Catheterized Urine Culture - Final 01/31/19 10:33 Blood Blood Culture - Preliminary 01/31/19 10:11 Blood Blood Culture - Preliminary Laboratory WBC 7.3 X10^3/uL (3.6-10.0) 09/02/19 04:18 RBC 3.67 X10^6/uL (3.5-5.4) 02/03/19 04:18 Hgb 12.1 g/dL (12.0-16.0) 02/03/19 04:18 Hct 35.3 % (36.0-47.0) L 02/03/19 04:18 MCV 96.3 fL (80.0-100.0) 02/03/19 04:18 MCH 32.9 pg (27.0-34.0) 02/03/19 04:18 MCHC 34.2 g/dL (33.0-35.0) 02/03/19 04:18 RDW 13.3 % (11.6-16.5) 02/03/19 04:18 Plt Count 174 X10^3/uL (150.0-450.0) 02/03/19 04:18 Plt Count Comment Adequate (ADEQUATE) 01/31/19 10:11 MPV 8.8 fL (7.4-11.0) 02/03/19 04:18 Neut % (Auto) 74.4 % (42.0-75.0) 02/03/19 04:18 Lymph % (Auto) 14.7 % (21.0-51.0) L 02/03/19 04:18 Boyle % (Auto) 8.8 % (0.0-13.0) 02/03/19 04:18 Eos % (Auto) 1.7 % (0.9-2.9) 02/03/19 04:18 Baso % (Auto) 0.4 % (0.2-1.0) 02/03/19 04:18 Neut # (Auto) 5.5 x10^3/uL (2.2-4.8) H 02/03/19 04:18 Lymph # (Auto) 1.1 X10^3/uL (1.3-2.9) L 02/03/19 04:18 Boyle # (Auto) 0.6 x10^3/uL (0.3-0.8) 02/03/19 04:18 Eos # (Auto) 0.1 x10^3/uL (0.0-0.2) 02/03/19 04:18 Baso # (Auto) 0.0 X10^3/uL (0.0-0.1) 02/03/19 04:18 Absolute Nucleated RBC 0.0 /100WBC 02/03/19 04:18 Total Counted 100 01/31/19 10:11 Neutrophils % (Manual) 88 % (39-76) H 01/31/19 10:11 Band Neutrophils % 4 % (0-10) 01/31/19 10:11 Lymphocytes % (Manual) 4 % (13-43) L 01/31/19 10:11 Monocytes % (Manual) 4 % (4-9) 01/31/19 10:11 Plt Morphology Comment Normal (NORMAL) 01/31/19 10:11 RBC Morphology Normal (NORMAL) 01/31/19 10:11 Sodium 140 mmol/L (136-145) 02/03/19 04:18 Corrected Sodium TNP 02/03/19 04:18 Potassium 3.7 mmol/L (3.5-5.1) 02/03/19 04:18 Chloride 105 mmol/L (98-107) 02/03/19 04:18 Carbon Dioxide 28.0 mmol/L (21-32) 02/03/19 04:18 BUN 16 mg/dL (7-18) 02/03/19 04:18 Creatinine 0.87 mg/dL (0.55-1.02) 02/03/19 04:18 Est GFR (MDRD) Af Amer > 60 (>60) 02/03/19 04:18 Est GFR (MDRD) Non-Af > 60 (>60) 02/03/19 04:18 Glucose 99 mg/dL (65-99) 02/03/19 04:18 Calcium 8.4 mg/dL (8.5-10.1) L 02/03/19 04:18 Corrected Calcium 9.4 mg/dL (8.5-10.1) 02/03/19 04:18 Magnesium 1.8 mg/dL (1.7-2.9) 02/03/19 04:18 Total Bilirubin 0.30 mg/dL (0.2-1.0) 02/03/19 04:18 AST 17 Units/L (15-37) 02/03/19 04:18 ALT 15 Units/L (12-78) 02/03/19 04:18 Alkaline Phosphatase 72 Units/L (46-116) 02/03/19 04:18 Creatine Kinase 44 Units/L (26-192) 01/31/19 21:38 CK-MB (CK-2) < 1.0 ng/mL (0-4.0) 01/31/19 21:38 CK/CKMB % Calc 2.3 % (<4) 01/31/19 21:38 Troponin I < 0.02 ng/mL (0-1.5) 01/31/19 21:38 Total Protein 6.6 g/dL (6.4-8.2) 02/03/19 04:18 Albumin 2.7 g/dL (3.4-5.0) L 02/03/19 04:18 Globulin 3.9 g/dL (2.5-4.5) 02/03/19 04:18 Albumin/Globulin Ratio 0.7 Ratio (1.1-2.1) L 02/03/19 04:18 Specimen Type Catherized urine 01/31/19 13:56 Urine Color Yellow (YELLOW) 01/31/19 13:56 Urine Appearance Clear (CLEAR) 01/31/19 13:56 Urine pH 7.0 (5.0 - 8.0) 01/31/19 13:56 Ur Specific [place] 1.010 (1.000-1.030) 01/31/19 13:56 Urine Protein Negative (NEGATIVE) 01/31/19 13:56 Urine Glucose (UA) Negative (NEGATIVE) 01/31/19 13:56 Urine Ketones Negative (NEGATIVE) 01/31/19 13:56 Urine Occult Blood 1+ (NEGATIVE) 01/31/19 13:56 Urine Nitrite Negative (NEGATIVE) 01/31/19 13:56 Urine Bilirubin Negative (NEGATIVE) 01/31/19 13:56 Urine Urobilinogen Normal (NORMAL) 01/31/19 13:56 Ur Leukocyte Esterase 1+ (NEGATIVE) 01/31/19 13:56 Urine RBC 3-5 /HPF (0-3) A 01/31/19 13:56 Urine WBC 20-30 /HPF (0-5) A 01/31/19 13:56 Ur Squamous Epith Cells Negative /HPF (NEGATIVE) 01/31/19 13:56 Urine Bacteria Negative /HPF (NEGATIVE) 01/31/19 13:56 Ur Culture Indicated? Yes/culture set up 01/31/19 13:56 - Plan (1) Generalized weakness Status: Acute Plan: IV HYDRATION. URINE CULTURE ON ADMISSION, IV ROCEPHIN. AM LABS. VERIFY HOME MEDICATIONS, BP CONTROL (2) Frequent falls Status: Acute (3) Degenerative joint disease (DJD) of lumbar spine Status: Acute Qualifiers: Spinal osteoarthritis complication: unspecified spinal osteoarthritis Qualified Code(s): M47.816 - Spondylosis without myelopathy or radiculopathy, lumbar region (4) UTI (urinary tract infection) Status: Acute Qualifiers: Urinary tract infection type: site unspecified Hematuria presence: with hematuria Qualified Code(s): N39.0 - Urinary tract infection, site not specified; R31.9 - Hematuria, unspecified (5) Degenerative lumbar spinal stenosis Status: Acute (6) Left patella fracture Status: Acute Qualifiers: Encounter type: initial encounter Fracture type: closed Fracture morphology: transverse Fracture alignment: nondisplaced Qualified Code(s): S82.035A - Nondisplaced transverse fracture of left patella, initial encounter for closed fracture Plan: CT KNEE TODAY, PAIN CONTROL, CONTINUE IMMOBILIZER
[2019-02-03] MEDS ORDERED: PROTONIX INJ 40 MG VIAL ONE (14:16)
[2019-02-03] MEDS ORDERED: PEPCID 20 MG IV PREMIX* 20 MG/50 ML BAG ONE (14:16)
[2019-02-03] MEDS: PROTONIX INJ 40 MG VIAL IVP SCH (14:32)
[2019-02-03] MEDS: VOLTAREN 1 % GEL MULTI DOSE TUBE TOP SCH ×2 (15:23→19:16)
[2019-02-03] MEDS: KLONOPIN TAB 1 MG PO SCH (20:12)
[2019-02-04 05:24] LABS: BASOPHILS % (AUTO) 0.6 % (0.2-1.0); EOSINOPHILS # (AUTO) 0.1 x10^3/uL (0.0-0.2); HEMATOCRIT 34.9 % (36.0-47.0); HEMOGLOBIN 11.9 g/dL (12.0-16.0); LYMPHOCYTES # (AUTO) 1.5 X10^3/uL (1.3-2.9); LYMPHOCYTES % (AUTO) 23.4 % (21.0-51.0); MEAN CORPUSCULAR HEMOGLOBIN 32.9 pg (27.0-34.0); MEAN CORPUSCULAR HGB CONC 34.1 g/dL (33.0-35.0); MEAN CORPUSCULAR VOLUME 96.3 fL (80.0-100.0); MEAN PLATELET VOLUME 8.7 fL (7.4-11.0); MONOCYTES # (AUTO) 0.6 x10^3/uL (0.3-0.8); NEUTROPHILS # (AUTO) 4.1 x10^3/uL (2.2-4.8); PLATELET COUNT 197 X10^3/uL (150.0-450.0); RED BLOOD COUNT 3.62 X10^6/uL (3.5-5.4); RED CELL DISTRIBUTION WIDTH 13.3 % (11.6-16.5); WHITE BLOOD COUNT 6.4 X10^3/uL (3.6-10.0)
[2019-02-04 05:34] LABS: ALANINE AMINOTRANSFERASE 12 Units/L (12-78); ALBUMIN 2.5 g/dL (3.4-5.0); ALKALINE PHOSPHATASE 70 Units/L (46-116); ASPARTATE AMINO TRANSFERASE 13 Units/L (15-37); BLOOD UREA NITROGEN 18 mg/dL (7-18); CALCIUM 8.3 mg/dL (8.5-10.1); CARBON DIOXIDE 27.8 mmol/L (21-32); CHLORIDE 106 mmol/L (98-107); COR CA(FOR HYPOALB) 9.5 mg/dL (8.5-10.1); CREATININE 0.76 mg/dL (0.55-1.02); SODIUM 141 mmol/L (136-145); TOTAL PROTEIN 6.4 g/dL (6.4-8.2); eGFR NON BLACK RACES > 60 (>60)
[2019-02-04 05:56] LABS: IRON 38 ug/dL (50-175)
[2019-02-04] MEDS: NS 1000 ML 1,000 ML IV SCH ×3 (06:57→23:16)
[2019-02-04] MEDS: VOLTAREN 1 % GEL MULTI DOSE TUBE TOP SCH ×5 (06:57→21:18)
[2019-02-04] MEDS: ZESTRIL TAB 5 MG PO SCH (09:05)
[2019-02-04] MEDS: LOVENOX INJ 40 MG SYR SC SCH (09:05)
[2019-02-04] MEDS: PREDNISONE TAB 5 MG PO SCH (09:05)
[2019-02-04] MEDS: SYNTHROID 50 mcg TAB PO SCH (09:05)
[2019-02-04] MEDS: INVANZ INJ 1 GM VIAL 1 GM in NS 100 ML IV + SPIKE MINIBAG* 100 ML IV SCH (09:06)
[2019-02-04] MEDS: PROTONIX INJ 40 MG VIAL IVP SCH (09:06)
[2019-02-04] MEDS: TORADOL 15 MG VIAL IVP SCH ×2 (10:26→18:33)
--- NOTE | 2019-02-04 16:58 | CT ---
History: Low back pain Study: CT of the thoracic spine without contrast. Sagittal and coronal reformations were provided. Findings: There are mild degenerative osteophytes in the mid and upper thoracic spine. There is no fracture or compression or lytic or blastic lesion. The facets and spinous processes appear intact. There is persistent atelectasis and/or consolidation in the left lower lobe posterior basilar segment with a small left pleural effusion. There is a smaller right pleural effusion. Impression: 1. Mild thoracic degenerative disc disease 2. Small pleural effusions and left posterior basilar subsegmental atelectasis and/or consolidation Reported By:
--- NOTE | 2019-02-04 17:02 | CT ---
History: Low back pain Study: CT lumbar spine without contrast. Sagittal and coronal reformations were provided. Findings: There is grade 1 anterolisthesis of L3 on L4 with severe L3-4 disc space narrowing and with mild vacuum phenomena and. There is no pars defect. There is severe osteophytes about the L3-3 4 facet joints. There are prominent osteophytes also about the L5-S1 facet joints, right worse than left. There is no lytic or blastic lesion. The sacroiliac joints appear unremarkable. Impression: 1. Severe L3-4 degenerative disc disease and grade 1 anterolisthesis L3 on L4 2. 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
[2019-02-04] MEDS: KLONOPIN TAB 1 MG PO SCH (21:18)
[2019-02-04] MEDS: ULTRAM PO PRN (21:24)
[2019-02-05] MEDS: TORADOL 15 MG VIAL IVP SCH ×2 (01:57→09:52)
[2019-02-05] MEDS: NS 1000 ML 1,000 ML IV SCH ×3 (05:12→12:53)
[2019-02-05 05:22] LABS: BASOPHILS % (AUTO) 0.6 % (0.2-1.0); EOSINOPHILS # (AUTO) 0.1 x10^3/uL (0.0-0.2); EOSINOPHILS % (AUTO) 1.8 % (0.9-2.9); HEMATOCRIT 35.1 % (36.0-47.0); HEMOGLOBIN 12.2 g/dL (12.0-16.0); LYMPHOCYTES # (AUTO) 1.6 X10^3/uL (1.3-2.9); LYMPHOCYTES % (AUTO) 22.1 % (21.0-51.0); MEAN CORPUSCULAR HEMOGLOBIN 33.6 pg (27.0-34.0); MEAN CORPUSCULAR HGB CONC 34.7 g/dL (33.0-35.0); MEAN CORPUSCULAR VOLUME 96.9 fL (80.0-100.0); MEAN PLATELET VOLUME 8.5 fL (7.4-11.0); MONOCYTES # (AUTO) 0.5 x10^3/uL (0.3-0.8); MONOCYTES % (AUTO) 7.4 % (0.0-13.0); NEUTROPHILS % (AUTO) 68.1 % (42.0-75.0); PLATELET COUNT 202 X10^3/uL (150.0-450.0); RED BLOOD COUNT 3.63 X10^6/uL (3.5-5.4); RED CELL DISTRIBUTION WIDTH 13.2 % (11.6-16.5); WHITE BLOOD COUNT 7.4 X10^3/uL (3.6-10.0)
[2019-02-05 05:36] LABS: ALANINE AMINOTRANSFERASE 13 Units/L (12-78); ALBUMIN 2.5 g/dL (3.4-5.0); ALKALINE PHOSPHATASE 70 Units/L (46-116); ASPARTATE AMINO TRANSFERASE 14 Units/L (15-37); BLOOD UREA NITROGEN 20 mg/dL (7-18); CALCIUM 8.3 mg/dL (8.5-10.1); CHLORIDE 107 mmol/L (98-107); COR CA(FOR HYPOALB) 9.5 mg/dL (8.5-10.1); CREATININE 0.89 mg/dL (0.55-1.02); SODIUM 142 mmol/L (136-145); TOTAL PROTEIN 6.3 g/dL (6.4-8.2); eGFR NON BLACK RACES > 60 (>60)
--- NOTE | 2019-02-05 06:13 | CT ---
CT left knee without contrast Indication: Left knee pain Technique: Helical CT images of the left knee were obtained without IV contrast. Reformatted images in the coronal and sagittal planes were also generated for review. Comparison: Radiograph 01/31/2019, 01/06/2019 Findings: Advanced osteopenia is noted. There is a nondisplaced transversely oriented fracture through the mid patella, unchanged since prior exam. No additional fractures are identified. Specifically, no discrete fracture of the medial or lateral tibial plateaus are identified. Mild tricompartmental degenerative arthrosis is noted. There is a trace joint effusion without lipohemarthrosis. Within the limits of a noncontrast CT examination, the ACL, PCL and extensor mechanism are grossly intact. Apart from vascular calcifications, the unenhanced surrounding soft tissues are unremarkable. Impression: Stable nondisplaced transverse fracture through the mid patella. Advanced osteopenia, trace joint effusion and tricompartmental DJD without additional acute osseous abnormality. Reported By:
[2019-02-05] MEDS: SYNTHROID 50 mcg TAB PO SCH (08:28)
[2019-02-05] MEDS: PREDNISONE TAB 5 MG PO SCH (08:28)
[2019-02-05] MEDS: ZESTRIL TAB 5 MG PO SCH (08:29)
[2019-02-05] MEDS: INVANZ INJ 1 GM VIAL 1 GM in NS 100 ML IV + SPIKE MINIBAG* 100 ML IV SCH (08:29)
[2019-02-05] MEDS: LOVENOX INJ 40 MG SYR SC SCH (08:30)
[2019-02-05] MEDS: VOLTAREN 1 % GEL MULTI DOSE TUBE TOP SCH ×2 (08:31→12:53)
[2019-02-05] MEDS: PROTONIX INJ 40 MG VIAL IVP SCH (08:32)
[2019-02-05] MEDS ORDERED: MILK OF MAGNESIA PO PRN (08:35)
[2019-02-05] MEDS ORDERED: MILK OF MAGNESIA ONE (08:36)
[2019-02-05 14:03] VITALS: BP 140/65
== END 2019-02-05 15:56 ==
LOC: MED/SURG 09:18 → ER 09:18 → MED/SURG 15:08
PROVIDERS: ADMIT Internal Medicine; ATTEND Internal Medicine
DX: Z79.899 Other long term (current) drug therapy; N39.0 Urinary tract infection, site not specified; W18.39XA Other fall on same level, initial encounter; K21.9 Gastro-esophageal reflux disease without esophagitis; F41.8 Other specified anxiety disorders; M79.662 Pain in left lower leg; J90 Pleural effusion, not elsewhere classified; R29.6 Repeated falls; M79.661 Pain in right lower leg; M25.562 Pain in left knee; R53.1 Weakness; I10 Essential (primary) hypertension; R94.31 Abnormal electrocardiogram [ECG] [EKG]; M47.816 Spondylosis without myelopathy or radiculopathy, lumbar region; E03.8 Other specified hypothyroidism; Y92.9 Unspecified place or not applicable; R26.89 Other abnormalities of gait and mobility; S82.035A Nondisplaced transverse fracture of left patella, initial encounter for closed fracture; M54.5 Low back pain
CPT/HCPCS: 36415; 51702; 71010; 71045; 72072; 72110; 72128; 72131; 73560; 73590; 73700; 80053; 81001; 82550; 82553; 82607; 82728; 82746; 83540; 83735; 84466; 84484; 85025; 87040; 87086; 92610; 93005; 94760; 96365; 96367; 96372; 96374; 97110; 97112; 97162; 97167; 97535; 99284; A4222; C9113; S0028; G0378; J1335; J1650; J1885; J1940; J7030; J7050; J7512